=== PATIENT | female | born 1945 | race Caucasian/White ===

== ENCOUNTER 2017-08-13 10:02 | Observation (INO) | payer OTHER ==
[2017-08-13 12:26] VITALS: BP 118/63; PULSE 67; RESP 16; TEMP 97.7; O2SAT 97
[2017-08-13 13:30] VITALS: PULSE 68
[2017-08-13] MEDS ORDERED: cloNIDine HCL 0.1 MG TAB PO PRN (13:30)
[2017-08-13] MEDS ORDERED: ACETAMINOPHEN/HYDROcodone 325 MG/7.5 MG TAB PO PRN (13:30)
[2017-08-13] MEDS ORDERED: ONDANSETRON HCL 4 MG/2 ML VIAL IV PUSH PRN (13:30)
[2017-08-13] MEDS ORDERED: ACETAMINOPHEN 500 MG CPLT PO PRN (13:30)
--- NOTE | 2017-08-13 13:31 | HHI.HP ---
HPI Primary Care Physician Unknown Chief Complaint Chest pain and high blood pressure History of Present Illness This is a 71-year-old female that presents to ED in [place] complaining of chest discomfort and high blood pressure. Her first complaint was that she's been having high blood pressure readings for the last 3 months. She saw her primary care physician for this 3 months ago and [place] and was told to keep a journal. She has not followed back up with her PCP to determine if she is be on medication. States that her blood pressure seems to up and down for no rhyme or reason. However the last couple days it has been running and staying higher. States that her systolic blood pressure was in the 180s. Also the last 2 days she's had a constant discomfort in her chest. Location varies. Strings Teacher the left side her chest, right side her chest, and also points to the epigastric region. It seems to have stayed more consistently in the epigastric region throughout today. States she has history of gastric ulcers but this does not feel the same. Also has had a cardiac workup in the past. She had a cardiac catheterization which she states she was told was normal and believes it was done between 5-7 years ago in [place]. Continues to follow a sales office manager intermittently since however states she's had no further cardiac testing since then. Also complaining of a frontal headache which she states seems to be present whenever blood pressure goes higher. Denies recent illness. Denies fevers or chills. Denies hyperlipidemia and diabetes. Review of Systems General: Patient denies fevers, chills recent, and recent travel HEENT: Complains of frontal headache that she states is present whenever her blood pressure goes high. Patient denies sore throat, difficulty swallowing. Cardiovascular: Has the chest discomfort as mentioned above. Denies sensation of heart beating rapidly or irregularly. No syncope. Denies diaphoresis. Respiratory: Denies shortness of breath or inspirational chest discomfort. Denies coughing wheezing or hemoptysis. GI: Patient denies nausea, vomiting, diarrhea, abdominal pain, bloody stools. Musculoskeletal: Patient denies joint pain or edema. Denies calf pain or edema. Neurovascular: Complains of frontal headache whenever her blood pressure is elevated. Patient denies numbness, tingling, weakness in extremities. Endocrine: Denies polyuria and polydipsia. Hematologic: Denies easy bruising. Skin: Denies rash or itching. Past Family Social History Allergies: Coded Allergies: ciprofloxacin (Verified Allergy, Severe, Anaphylaxis, 08/13/17) Cladosporium Herbarum (Verified Allergy, Intermediate, hives, 08/13/17) Ani House Dust (Verified Allergy, Intermediate, hives, 08/13/17) Influenza Virus Vaccines (Verified Allergy, Intermediate, "was in bed sick for 2 weeks after receiving it", 08/13/17) Latex, Natural Rubber (Verified Allergy, Intermediate, blisters, 08/13/17) cefaclor (Verified Allergy, Intermediate, hives, 08/13/17) cefprozil (Verified Allergy, Intermediate, hives, 08/13/17) estrogens, conjugated (Verified Allergy, Intermediate, hives, 08/13/17) latex (Verified Allergy, Intermediate, blisters, 08/13/17) nitrofurantoin (Verified Allergy, Intermediate, hives, 08/13/17) pecan nut (Verified Allergy, Intermediate, Anaphylaxis, 08/13/17) propoxyphene (Verified Allergy, Intermediate, hives, 08/13/17) terfenadine (Verified Allergy, Intermediate, hives, 08/13/17) mold (Verified Allergy, Unknown, 08/13/17) pollen extracts (Verified Allergy, Unknown, 08/13/17) Uncoded Allergies: stephylium (Allergy, Intermediate, it is a mold and causes hives, 08/13/17) bermuda grass (Allergy, Unknown, 08/13/17) calamari (Allergy, Unknown, 08/13/17) dust mites (Allergy, Unknown, 08/13/17) pepper tree (Allergy, Unknown, 08/13/17) pet dander (Allergy, Unknown, 08/13/17) melva (Allergy, Unknown, 08/13/17) Past Medical History GERD. Also when the history of gastric ulcers. Denies any current medication other than occasional aspirin. Denies hypertension, hyperlipidemia, diabetes, and known CAD. Past Surgical History Appendectomy and knee surgery rate Active Ordered Medications Current Medications Medications (Trade) Dose Ordered Sig/Milka Route Start Time Stop Time Status Last Admin (Tylenol) 500 mg Q4H PRN PO 08/13/17 13:30 ([place] 7.5-325 Mg) 1 tab Q4H PRN PO 08/13/17 13:30 (Zofran Inj) 4 mg Q6H PRN IV PUSH 08/13/17 13:30 (Aspirin) 325 mg DAILY PO 08/14/17 09:00 (Catapres) 0.1 mg Q4H PRN PO 08/13/17 13:30 Family History Patient's brother had onset CAD in his 50s. Her mother at age 63. She states that she can recall mother taking nitroglycerin but does not know any more specific cardiac information regarding her mother. Social History Lifetime nonsmoker. Rarely has alcohol but states she had a little champagne last evening with her . Denies illicit drug use. Physical Exam Vital Signs Vital Signs Date Time Temp Pulse Resp B/P (MAP) Pulse Ox O2 Delivery O2 Flow Rate FiO2 08/13/17 12:26 97.7 67 16 118/63 (81) 97 Physical Exam GENERAL: This is a well-nourished, well-developed patient, in no apparent distress. Patient speaks in clear complete sentences. Patient is pleasant. HEENT: Head is atraumatic and normocephalic. Neck is supple without lymphadenopathy and trachea is midline. No JVD or carotid bruits. CARDIOVASCULAR: Regular rate and rhythm without murmurs, gallops, or rubs. RESPIRATORY: Clear to auscultation. Breath sounds equal bilaterally. No wheezes , rales, or rhonchi. Chest wall is tender in different areas and does seem to worsen the discomfort that she has had. No use of accessory muscles. GASTROINTESTINAL: Abdomen is nontender, nondistended. Abdomen soft. No obvious pulsatile mass or bruit. No CVA tenderness. Strong femoral pulses bilaterally. Normal bowel sounds in all quadrants. MUSCULOSKELETAL: Patient is moving upper and lower extremities freely. No calf tenderness or edema, no [place] sign. Strong pulses in upper and lower extremities. NEUROLOGICAL: Patient is alert and oriented. Cranial nerves 2-12 are grossly intact. No focal deficits and speech is clear. SKIN: No rash and turgor is normal. Imaging Chest x-ray read by radiologist as nothing acute. CT brain read by radiologist as nothing acute. Course Initial EKG is sinus rhythm without significant ST segment depressions or elevation. Caprini VTE Risk Assessment Caprini VTE Risk Assessment: Mod/High Risk (score >= 2) Caprini Risk Assessment Model Point Value = 1 Point Value = 2 Point Value = 3 Point Value = 5 Age 41-60 Minor surgery BMI > 25 kg/m2 Swollen legs Varicose veins or History of unexplained or recurrent spontaneous Oral contraceptives or hormone replacement Sepsis (< 1 month) Serious lung disease, including pneumonia (< 1 month) Abnormal pulmonary function Acute myocardial infarction Congestive heart failure (< 1 month) History of inflammatory bowel disease Medical patient at bed rest Age 61-74 Arthroscopic surgery Major open surgery (> 45 min) Laparoscopic surgery (> 45 min) Malignancy Confined to bed (> 72 hours) Immobilizing plaster cast Central venous access Age >= 75 History of VTE Family history of VTE Factor V Leiden Prothrombin [id number] Lupus anticoagulant Anticardiolipin antibodies Elevated serum homocysteine Heparin-induced thrombocytopenia Other congenital or acquired thrombophilia Stroke (< 1 month) Elective arthroplasty Hip, pelvis, or leg fracture Acute spinal cord injury (< 1 month) Prophylaxis Regimen Total Risk Factor Score Risk Level Prophylaxis Regimen 0-1 Low Early ambulation 2 Moderate Order ONE of the following: *Sequential Compression Device (SCD) *Heparin 5000 units SQ BID 3-4 Higher Order ONE of the following medications: *Heparin 5000 units SQ TID *Enoxaparin/Lovenox 40 mg SQ daily (WT < 150 kg, CrCl > 30 mL/min) *Enoxaparin/Lovenox 30 mg SQ daily (WT < 150 kg, CrCl > 10-29 mL/min) *Enoxaparin/Lovenox 30 mg SQ BID (WT < 150 kg, CrCl > 30 mL/min) AND/OR *Sequential Compression Device (SCD) 5 or more Highest Order ONE of the following medications: *Heparin 5000 units SQ TID (Preferred with Epidurals) *Enoxaparin/Lovenox 40 mg SQ daily (WT < 150 kg, CrCl > 30 mL/min) *Enoxaparin/Lovenox 30 mg SQ daily (WT < 150 kg, CrCl > 10-29 mL/min) *Enoxaparin/Lovenox 30 mg SQ BID (WT < 150 kg, CrCl > 30 mL/min) AND *Sequential Compression Device (SCD) Assessment and Plan Assessment and Plan * Chest pain: Patient will continue to have serial cardiac enzymes and EKGs for ruling out purposes. Patient will be evaluated by Dr. Estuardo Cash of cardiology and the chest pain center and further plan will be determined after that evaluation. After discharge, patient has been instructed to follow-up with PCP and her sales office manager. Return to ED for interval issues. * Elevated blood pressure: Patient was hypertensive upon arrival in the ED but has normalized since. We'll continue to monitor. Patient is stable at this time. She is agreeable to this plan. Jesus Deluca Aug 13, 2017 13:31
[2017-08-13 13:55] LABS: TROPONIN I LESS THAN 0.02 NG/ML (0.02-0.05)
--- NOTE | 2017-08-13 15:13 | HHI.DCPOC ---
Discharge Care Plan Diagnosis: (1) Chest pain (2) Elevated blood pressure reading Goals to Promote Your Health CHECK AND RECORD YOUR BLOOD PRESSURE TO DISCUSS WITH YOUR PRIMARY CARE PHYSICIAN. * To prevent worsening of your condition and complications * To maintain your health at the optimal level Directions to Meet Your Goals Take your medications as prescribed Follow your dietary instruction Follow activity as directed Keep your appointments as scheduled Take your immunizations and boosters as scheduled If your symptoms worsen call your PCP, if no PCP go to Urgent Care Center or Emergency Room Smoking is Dangerous to Your Health. Avoid second hand smoke Call the 24-hour hour crisis hotline for domestic abuse at Jesus Deluca Aug 13, 2017 15:13
[2017-08-13 15:23] VITALS: O2SAT 98
[2017-08-14] MEDS ORDERED: ASPIRIN 325 MG TAB PO SCH (09:00)
--- NOTE | 2017-08-15 09:55 | EKG ---
Date Performed: 08/13/2017 Time Performed: 12:34:20 PTAGE: 71 years EKG: Sinus rhythm MARKED LEFT AXIS DEVIATION VOLTAGE CRITERIA FOR LVH ABNORMAL ECG NO PREVIOUS TRACING DOCTOR: Estuardo Cash Interpretating Date/Time 08/15/2017 09:54:49
== END 2017-08-13 15:50 | disposition home or self-care (01) ==
LOC: NEDDLT 10:02 → NEDA 12:22 → NEPGCP 13:13
PROVIDERS: ADMIT Internal Medicine Cardiovascular Disease; ATTEND Internal Medicine Cardiovascular Disease
DX: R03.0 Elevated blood-pressure reading, without diagnosis of hypertension (principal); Z87.11 Personal history of peptic ulcer disease; R51 Headache; K21.9 Gastro-esophageal reflux disease without esophagitis; R94.31 Abnormal electrocardiogram [ECG] [EKG]
CPT/HCPCS: 70450; 71045; 80053; 82550; 84484; 85025; 85610; 85730; 93005; G0378; J2270; J2405; 96374; 96375

== ENCOUNTER 2017-09-17 08:14 | Inpatient (IN) | payer OTHER, MEDICARE ==
[2017-09-17] VITALS (16 sets, daily range): BP systolic 104–180; BP diastolic 55–86; PULSE 66–91; RESP 16–20; TEMP 98–98.9; O2SAT 96–98
[~2017-09-17] VITALS: Ht 157.5 cm; Wt 58.2 kg
[2017-09-17] MEDS ORDERED: POLY17S PO (08:47)
[2017-09-17] MEDS ORDERED: AMLO2.5T PO (08:47)
[2017-09-17] MEDS ORDERED: APIX5TAB PO (08:47)
[2017-09-17] MEDS ORDERED: TRAM50TA PO (08:47)
[2017-09-17] MEDS ORDERED: ONDANSETRON HCL 4 MG/2 ML VIAL IV PUSH ONE (09:30)
[2017-09-17] MEDS ORDERED: HYDROmorphone HCL PF 1 MG/ML VIAL IV PUSH ONE (09:30)
[2017-09-17 09:45] LABS: INTERNATIONAL NORMALIZED RATIO 1.1 RATIO; PROTHROMBIN TIME - PATIENT 11.4 SEC (9.8-11.6)
[2017-09-17 09:49] LABS: AUTOMATED NEUTROPHIL # 7.6 TH/MM3 (1.8-7.7); BASOPHIL # 0.1 TH/MM3 (0-0.2); BASOPHIL % 0.6 % (0.0-2.0); EOSINOPHIL # 0.1 TH/MM3 (0-0.4); EOSINOPHIL % 0.8 % (0.0-4.0); HEMATOCRIT 37.2 % (35.0-46.0); HEMOGLOBIN 12.6 GM/DL (11.6-15.3); LYMPH % 10.1 % (9.0-44.0); MEAN CELL VOLUME 87.3 FL (80.0-100.0); MEAN CORPUSCULAR HEMOGLOBIN 29.7 PG (27.0-34.0); MEAN PLATELET VOLUME 7.7 FL (7.0-11.0); MONO % 7.7 % (0.0-8.0); MONOCYTE # 0.7 TH/MM3 (0-0.9); NEUT % 80.8 % (16.0-70.0); PLATELET COUNT 332 TH/MM3 (150-450); RED BLOOD COUNT 4.26 MIL/MM3 (4.00-5.30); RED CELL DISTRIBUTION WIDTH 12.3 % (11.6-17.2); WHITE BLOOD COUNT 9.5 TH/MM3 (4.0-11.0)
[2017-09-17 09:54] LABS: ALBUMIN 3.4 GM/DL (3.4-5.0); AST (GOT) 111 U/L (15-37); BICARBONATE 29.1 MEQ/L (21.0-32.0); BLOOD UREA NITROGEN 10 MG/DL (7-18); CALCIUM 9.4 MG/DL (8.5-10.1); CHLORIDE 92 MEQ/L (98-107); CREATININE 0.52 MG/DL (0.50-1.00); GLOMERULAR FILTRATION RATE 116 ML/MIN (>89); GLUCOSE,RANDOM 122 MG/DL (74-106); SODIUM (NA) 129 MEQ/L (136-145)
[2017-09-17 09:55] LABS: ALT (GPT) 163 U/L (10-53)
[2017-09-17 09:57] LABS: ALKALINE PHOSPHATASE 273 U/L (45-117); TOTAL BILIRUBIN ADULT 1.3 MG/DL (0.2-1.0); TOTAL PROTEIN 7.9 GM/DL (6.4-8.2)
[2017-09-17] MEDS ORDERED: ONDANSETRON HCL 4 MG/2 ML VIAL IV PUSH PRN (10:45)
--- NOTE | 2017-09-17 11:10 | PD ---
HPI Chief Complaint: Chest Pain Time Seen by Provider: 09:01 Travel History International Travel<30 days: No Contact w/Intl Traveler<30days: No Traveled to known affect area: No History of Present Illness HPI This is a 71-year-old female with history of hypertension, lower extremity DVT and pulmonary emboli, who presents today with complaints of upper abdominal pain. Patient reports that she was just discharged from [facility] in [place]. She states at that time they diagnosed a pancreatic mass with probable metastasize to her liver. She reports that they were scheduling for biopsy however this did not happen yet. She presents today with severe right upper quadrant and epigastric pain. She was given pain medicine and a fentanyl patch which she says does not control her pain. There is no reported fevers, chills. There is reported nausea with no vomiting or diarrhea. There are no other complaints at the time of my examination. PFSH Past Medical History Hx Anticoagulant Therapy: Yes Heart Rhythm Problems: No Cardiac Catheterization: No Cardiovascular Problems: Yes High Cholesterol: No Congestive Heart Failure: No Diabetes: No Diminished Hearing: No Medical other: Yes (blood clot in leg) Respiratory: Yes Past Surgical History Appendectomy: Yes Coronary Artery Bypass Graft: No Genitourinary Surgery: Yes (BLADDER SUSPENSION) Gynecologic Surgery: Yes (UTERUS REMOVED) Other Surgery: Yes (FATTY TUMORS ) Social History Alcohol Use: No Tobacco Use: No Substance Use: No Allergies-Medications (Allergen,Severity, Reaction): Coded Allergies: ciprofloxacin (Verified Allergy, Severe, Anaphylaxis, 09/17/17) Cladosporium Herbarum (Verified Allergy, Intermediate, hives, 09/17/17) Ani House Dust (Verified Allergy, Intermediate, hives, 09/17/17) Influenza Virus Vaccines (Verified Allergy, Intermediate, "was in bed sick for 2 weeks after receiving it", 09/17/17) Latex, Natural Rubber (Verified Allergy, Intermediate, blisters, 09/17/17) cefaclor (Verified Allergy, Intermediate, hives, 09/17/17) cefprozil (Verified Allergy, Intermediate, hives, 09/17/17) estrogens, conjugated (Verified Allergy, Intermediate, hives, 09/17/17) latex (Verified Allergy, Intermediate, blisters, 09/17/17) nitrofurantoin (Verified Allergy, Intermediate, hives, 09/17/17) pecan nut (Verified Allergy, Intermediate, Anaphylaxis, 09/17/17) propoxyphene (Verified Allergy, Intermediate, hives, 09/17/17) terfenadine (Verified Allergy, Intermediate, hives, 09/17/17) mold (Verified Allergy, Unknown, 09/17/17) pollen extracts (Verified Allergy, Unknown, 09/17/17) Uncoded Allergies: stephylium (Allergy, Intermediate, it is a mold and causes hives, 08/13/17) bermuda grass (Allergy, Unknown, 08/13/17) calamari (Allergy, Unknown, 08/13/17) dust mites (Allergy, Unknown, 08/13/17) pepper tree (Allergy, Unknown, 08/13/17) pet dander (Allergy, Unknown, 08/13/17) melva (Allergy, Unknown, 08/13/17) Reported Meds & Prescriptions Reported Meds & Active Scripts Active Reported Polyethylene Glycol 3350 Powder (Polyethylene Glycol) 17 Gram Pow 17 Gm PO DAILY Amlodipine (Amlodipine Besylate) 2.5 Mg Tab 2.5 Mg PO DAILY Eliquis (Apixaban) 5 Mg Tab 5 Mg PO BID Tramadol (Tramadol HCl) 50 Mg Tab 50 Mg PO Q4H PRN Review of Systems Except as stated in HPI: all other systems reviewed are Neg General / Constitutional: No: Fever, Chills HENT: No: Headaches, Lightheadedness, Neck Pain Cardiovascular: No: Chest Pain or Discomfort, Palpitations Respiratory: No: Cough, Shortness of Breath Gastrointestinal: Positive: Nausea, Abdominal Pain (Epigastric and right upper quadrant), No: Vomiting, Diarrhea Genitourinary: No: Frequency, Dysuria Musculoskeletal: No: Weakness, Pain Skin: No Rash, No Itching Neurologic: No: Weakness, Dizziness, Headache Physical Exam Narrative GENERAL: Well-developed well-nourished female in no acute respiratory distress. SKIN: Focused skin assessment warm/dry. HEAD: Atraumatic. Normocephalic. EYES: Pupils equal and round. No scleral icterus. No injection or drainage. ENT: No nasal bleeding or discharge. Mucous membranes pink and moist. NECK: Trachea midline. Supple. CARDIOVASCULAR: Regular rate and rhythm. No murmur appreciated. RESPIRATORY: No accessory muscle use. Clear to auscultation. Breath sounds equal bilaterally. GASTROINTESTINAL: Abdomen soft, nondistended. Patient has tenderness in her epigastrium and bilateral upper quadrants. No rebound. Positive voluntary guarding. MUSCULOSKELETAL: No obvious deformities. No clubbing. No cyanosis. No edema. NEUROLOGICAL: Awake and alert. No obvious cranial nerve deficits. Motor grossly within normal limits. Normal speech. PSYCHIATRIC: Appropriate mood and affect; insight and judgment normal. Data Data Last Documented VS Vital Signs Date Time Temp Pulse Resp B/P (MAP) Pulse Ox O2 Delivery O2 Flow Rate FiO2 09/17/17 10:30 68 18 141/62 (88) 97 Room Air 09/17/17 08:16 98.1 Orders Orders Complete Blood Count With Diff (09/17/17 09:23) Comprehensive Metabolic Panel (09/17/17 09:23) Prothrombin Time / Inr (Pt) (09/17/17 09:23) Act Partial Throm Time (Ptt) (09/17/17 09:23) Lipase (09/17/17 09:23) Iv Access Insert/Monitor (09/17/17 09:23) Ecg Monitoring (09/17/17 09:23) Oximetry (09/17/17 09:23) Ondansetron Inj (Zofran Inj) (09/17/17 09:30) Hydromorphone Pf Inj (Dilaudid Pf Inj) (09/17/17 09:30) Electrocardiogram (09/17/17 ) Vital Signs (Adult) ANASTACIO.Q4H (09/17/17 10:32) Sodium Chlor 0.9% 1000 Ml Inj (Ns 1000 M (09/17/17 11:00) Ondansetron Inj (Zofran Inj) (09/17/17 10:45) Diet Clear Liquid (09/17/17 Lunch) Oxycodone (Roxicodone) (09/17/17 11:15) Oxycodone (Roxicodone) (09/17/17 11:15) Morphine Inj (Morphine Inj) (09/17/17 11:15) Enoxaparin Inj (Lovenox Inj) (09/17/17 18:00) Consult Medical Oncology (09/17/17 ) Basic Metabolic Panel (Bmp) (09/18/17 06:00) Amlodipine (Norvasc) (09/18/17 09:00) ^ Other Nursing Orders (09/17/17 11:13) (Hub Use Only)Inp Phy Cons/Ref (09/17/17 ) Admit Order (Ed Use Only) (09/17/17 11:38) Labs Laboratory Tests Test 09/17/17 09:15 White Blood Count 9.5 TH/MM3 Red Blood Count 4.26 MIL/MM3 Hemoglobin 12.6 GM/DL Hematocrit 37.2 % Mean Corpuscular Volume 87.3 FL Mean Corpuscular Hemoglobin 29.7 PG Mean Corpuscular Hemoglobin Concent 34.0 % Red Cell Distribution Width 12.3 % Platelet Count 332 TH/MM3 Mean Platelet Volume 7.7 FL Neutrophils (%) (Auto) 80.8 % Lymphocytes (%) (Auto) 10.1 % Monocytes (%) (Auto) 7.7 % Eosinophils (%) (Auto) 0.8 % Basophils (%) (Auto) 0.6 % Neutrophils # (Auto) 7.6 TH/MM3 Lymphocytes # (Auto) 1.0 TH/MM3 Monocytes # (Auto) 0.7 TH/MM3 Eosinophils # (Auto) 0.1 TH/MM3 Basophils # (Auto) 0.1 TH/MM3 CBC Comment DIFF FINAL Differential Comment Prothrombin Time 11.4 SEC Prothromb Time International Ratio 1.1 RATIO Activated Partial Thromboplast Time 26.6 SEC Blood Urea Nitrogen 10 MG/DL Creatinine 0.52 MG/DL Random Glucose 122 MG/DL Total Protein 7.9 GM/DL Albumin 3.4 GM/DL Calcium Level 9.4 MG/DL Alkaline Phosphatase 273 U/L Aspartate Amino Transf (AST/SGOT) 111 U/L Alanine Aminotransferase (ALT/SGPT) 163 U/L Total Bilirubin 1.3 MG/DL Sodium Level 129 MEQ/L Potassium Level 3.9 MEQ/L Chloride Level 92 MEQ/L Carbon Dioxide Level 29.1 MEQ/L Anion Gap 8 MEQ/L Estimat Glomerular Filtration Rate 116 ML/MIN Lipase 108 U/L MDM Medical Decision Making Medical Screen Exam Complete: Yes Emergency Medical Condition: Yes Differential Diagnosis Pancreatitis versus metastatic disease versus cholecystitis versus intractable pain. Narrative Course This is a 71-year-old female who presents with complaints of shortness of breath and abdominal pain. Patient has a newly diagnosis of what appears to be metastatic pancreatic cancer. The patient was recently [facility] and was scheduled to have a biopsy however that did not occur. The patient presents today with worsening pain. The pain is worse despite having a fentanyl patch. The patient will be admitted to the hospital. [facility]. Diagnosis Primary Impression: Probable metastatic pancreatic cancer Additional Impressions: Intractable abdominal pain History of hypertension Admitting Information Admitting Physician Requests: Admit Unruly Steen MD Sep 17, 2017 11:10
[2017-09-17] MEDS: SODIUM CHLOR 0.9% 1000 ML INJ 1,000 ML IV SCH ×2 (11:14→19:50)
[2017-09-17] MEDS ORDERED: MORPHINE SULFATE 2 MG/ML INJ IV PUSH PRN (11:15)
--- NOTE | 2017-09-17 11:21 | HHI.HP ---
[facility] Primary Care Physician Roro Tate MD Admission Diagnosis abdominal pain Diagnoses: (1) Intractable abdominal pain Diagnosis: Principal Chief Complaint: abdominal pain Travel History International Travel<30 Days: No Contact w/Intl Traveler <30 Da: No Traveled to Known Affected Are: No History of Present Illness patient is a 71 y/o female with history of hypertension and PE presented to ER with abdominal pain. she says that she's had abdominal pain for at least six months. pain was more or less epigastric with on and off radiation to the RUQ. pain was not associated with nausea or vomiting. she says that she had EGD and colonoscopy which showed ' just polyps'. she was recently admitted to the [facility] where she was found to have PE and pancreatic/ liver mass. she was discharged with outpatient follow-ups but because of worsening pain she decided to come back to ER. Review of Systems Constitutional: DENIES: Fever, Weight loss, Chills, Night Sweats Eyes: DENIES: Blurred vision, Diplopia, Vision loss, Double Vision Ears, nose, mouth, throat: DENIES: Tinnitus, Vertigo, Throat pain, Epistaxis Respiratory: DENIES: Apneas, Cough, Snoring, Wheezing, Hemoptysis, Sputum production, Shortness of breath Cardiovascular: DENIES: Chest pain, Palpitations, Syncope, Dyspnea on Exertion , PND, Lower Extremity Edema, Orthopnea, Claudication Gastrointestinal: COMPLAINS OF: Abdominal pain, DENIES: Black stools, Bloody stools, Constipation, Diarrhea, Nausea, Vomiting, Difficulty Swallowing, Anorexia Genitourinary: DENIES: Urinary frequency, Urgency, Hematuria, Dysuria Musculoskeletal: DENIES: Joint pain, Muscle aches, Stiffness, Joint Swelling Integumentary: DENIES: Rash Neurologic: DENIES: Abnormal gait, Headache, Localized weakness, Paresthesias, Seizures, Speech Problems, Tremor, Poor Balance Psychiatric: DENIES: Anxiety, Confusion, Mood changes, Depression, Hallucinations, Agitation, Suicidal Ideation, Homicidal Ideation, Delusions Past Family Social History Past Medical History PE/hypertension Past Surgical History / knee surgery. Reported Medications amlodipine/ tramadol/ eliquis Allergies: Coded Allergies: ciprofloxacin (Verified Allergy, Severe, Anaphylaxis, 09/17/17) Cladosporium Herbarum (Verified Allergy, Intermediate, hives, 09/17/17) Ani House Dust (Verified Allergy, Intermediate, hives, 09/17/17) Influenza Virus Vaccines (Verified Allergy, Intermediate, "was in bed sick for 2 weeks after receiving it", 09/17/17) Latex, Natural Rubber (Verified Allergy, Intermediate, blisters, 09/17/17) cefaclor (Verified Allergy, Intermediate, hives, 09/17/17) cefprozil (Verified Allergy, Intermediate, hives, 09/17/17) estrogens, conjugated (Verified Allergy, Intermediate, hives, 09/17/17) latex (Verified Allergy, Intermediate, blisters, 09/17/17) nitrofurantoin (Verified Allergy, Intermediate, hives, 09/17/17) pecan nut (Verified Allergy, Intermediate, Anaphylaxis, 09/17/17) propoxyphene (Verified Allergy, Intermediate, hives, 09/17/17) terfenadine (Verified Allergy, Intermediate, hives, 09/17/17) mold (Verified Allergy, Unknown, 09/17/17) pollen extracts (Verified Allergy, Unknown, 09/17/17) Uncoded Allergies: stephylium (Allergy, Intermediate, it is a mold and causes hives, 08/13/17) bermuda grass (Allergy, Unknown, 08/13/17) calamari (Allergy, Unknown, 08/13/17) dust mites (Allergy, Unknown, 08/13/17) pepper tree (Allergy, Unknown, 08/13/17) pet dander (Allergy, Unknown, 08/13/17) melva (Allergy, Unknown, 08/13/17) Active Ordered Medications Inpatient Medications Hydromorphone HCl (Dilaudid Pf Inj) 1 mg ONCE ONCE IV PUSH Last administered on 09/17/17at 10:06; Start 09/17/17 at 09:30; Stop 09/17/17 at 09:31; Status DC Ondansetron HCl (Zofran Inj) 4 mg Q8H PRN IV PUSH NAUSEA; Start 09/17/17 at 10: 45 Sodium Chloride 1,000 ml @ 100 mls/hr Q10H IV ; Start 09/17/17 at 11:00 Family History cancer; mother had throat cancer. Social History doesn't smoke. used to drink occasionally. Physical Exam Vital Signs Vital Signs Date Time Temp Pulse Resp B/P (MAP) Pulse Ox O2 Delivery O2 Flow Rate FiO2 09/17/17 09:59 16 97 Room Air 09/17/17 08:16 98.1 91 18 171/78 (109) 97 Physical Exam GENERAL: This is a well-nourished, well-developed patient, in no apparent distress. SKIN: No rashes, ecchymoses or lesions. Cool and dry. HEAD: Atraumatic. Normocephalic. No temporal or scalp tenderness. EYES: Pupils equal round and reactive. Extraocular motions intact. No scleral icterus. No injection or drainage. ENT: Nose without bleeding, purulent drainage or septal hematoma. Throat without erythema, tonsillar hypertrophy or exudate. Uvula midline. Airway patent. NECK: Trachea midline. No JVD or lymphadenopathy. Supple, nontender, no meningeal signs. CARDIOVASCULAR: Regular rate and rhythm without murmurs, gallops, or rubs. RESPIRATORY: Clear to auscultation. Breath sounds equal bilaterally. No wheezes , rales, or rhonchi. GASTROINTESTINAL: Abdomen soft, mild epigastric tenderness, nondistended. No hepato-splenomegaly, or palpable masses. No guarding. MUSCULOSKELETAL: Extremities without clubbing, cyanosis, or edema. No joint tenderness, effusion, or edema noted. No calf tenderness. Negative Homans sign bilaterally. NEUROLOGICAL: Awake and alert. Cranial nerves II through XII intact. Motor and sensory grossly within normal limits. Five out of 5 muscle strength in all muscle groups. Normal speech. Laboratory Laboratory Tests Test 09/17/17 09:15 White Blood Count 9.5 Red Blood Count 4.26 Hemoglobin 12.6 Hematocrit 37.2 Mean Corpuscular Volume 87.3 Mean Corpuscular Hemoglobin 29.7 Mean Corpuscular Hemoglobin Concent 34.0 Red Cell Distribution Width 12.3 Platelet Count 332 Mean Platelet Volume 7.7 Neutrophils (%) (Auto) 80.8 Lymphocytes (%) (Auto) 10.1 Monocytes (%) (Auto) 7.7 Eosinophils (%) (Auto) 0.8 Basophils (%) (Auto) 0.6 Neutrophils # (Auto) 7.6 Lymphocytes # (Auto) 1.0 Monocytes # (Auto) 0.7 Eosinophils # (Auto) 0.1 Basophils # (Auto) 0.1 CBC Comment DIFF FINAL Differential Comment Prothrombin Time 11.4 Prothromb Time International Ratio 1.1 Activated Partial Thromboplast Time 26.6 Blood Urea Nitrogen 10 Creatinine 0.52 Random Glucose 122 Total Protein 7.9 Albumin 3.4 Calcium Level 9.4 Alkaline Phosphatase 273 Aspartate Amino Transf (AST/SGOT) 111 Alanine Aminotransferase (ALT/SGPT) 163 Total Bilirubin 1.3 Sodium Level 129 Potassium Level 3.9 Chloride Level 92 Carbon Dioxide Level 29.1 Anion Gap 8 Estimat Glomerular Filtration Rate 116 Lipase 108 Result Diagram: 09/17/1791409/17/17914 Caprini VTE Risk Assessment Caprini VTE Risk Assessment: Mod/High Risk (score >= 2) Caprini Risk Assessment Model Point Value = 1 Point Value = 2 Point Value = 3 Point Value = 5 Age 41-60 Minor surgery BMI > 25 kg/m2 Swollen legs Varicose veins or History of unexplained or recurrent spontaneous Oral contraceptives or hormone replacement Sepsis (< 1 month) Serious lung disease, including pneumonia (< 1 month) Abnormal pulmonary function Acute myocardial infarction Congestive heart failure (< 1 month) History of inflammatory bowel disease Medical patient at bed rest Age 61-74 Arthroscopic surgery Major open surgery (> 45 min) Laparoscopic surgery (> 45 min) Malignancy Confined to bed (> 72 hours) Immobilizing plaster cast Central venous access Age >= 75 History of VTE Family history of VTE Factor V Leiden Prothrombin [id number] Lupus anticoagulant Anticardiolipin antibodies Elevated serum homocysteine Heparin-induced thrombocytopenia Other congenital or acquired thrombophilia Stroke (< 1 month) Elective arthroplasty Hip, pelvis, or leg fracture Acute spinal cord injury (< 1 month) Prophylaxis Regimen Total Risk Factor Score Risk Level Prophylaxis Regimen 0-1 Low Early ambulation 2 Moderate Order ONE of the following: *Sequential Compression Device (SCD) *Heparin 5000 units SQ BID 3-4 Higher Order ONE of the following medications: *Heparin 5000 units SQ TID *Enoxaparin/Lovenox 40 mg SQ daily (WT < 150 kg, CrCl > 30 mL/min) *Enoxaparin/Lovenox 30 mg SQ daily (WT < 150 kg, CrCl > 10-29 mL/min) *Enoxaparin/Lovenox 30 mg SQ BID (WT < 150 kg, CrCl > 30 mL/min) AND/OR *Sequential Compression Device (SCD) 5 or more Highest Order ONE of the following medications: *Heparin 5000 units SQ TID (Preferred with Epidurals) *Enoxaparin/Lovenox 40 mg SQ daily (WT < 150 kg, CrCl > 30 mL/min) *Enoxaparin/Lovenox 30 mg SQ daily (WT < 150 kg, CrCl > 10-29 mL/min) *Enoxaparin/Lovenox 30 mg SQ BID (WT < 150 kg, CrCl > 30 mL/min) AND *Sequential Compression Device (SCD) Assessment and Plan Assessment and Plan A/P - abdominal pain with elevated LFT's with reported pancreatic/liver mass on recent imaging studies start on clear liquid diet for now- continue with pain control- will obtain the report of imaging studies from [facility] and consult oncology ( - per family request). -recent PE- hold eliquis - in case the patient needs biopsy- start on therapeutic dose of Lovenox- -hyponatremia; start on IV NS and monitor the sodium level. -hypertension; resume home meds. Discussed Condition With ER physician, the patient and her family at the bedside. Anjana Ojeda MD Sep 17, 2017 11:21
[2017-09-17] MEDS: ENOXAPARIN SODIUM 60 MG/0.6 ML SYRINGE SQ SCH (17:32)
--- NOTE | 2017-09-17 21:58 | EKG ---
Date Performed: 09/17/2017 Time Performed: 08:44:10 PTAGE: 71 years EKG: Sinus rhythm MARKED LEFT AXIS DEVIATION MODERATE VOLTAGE CRITERIA FOR LVH, CONSIDER NORMAL VARIANT ABNORMAL ECG PREVIOUS TRACING : 08/13/2017 12.34 DOCTOR: Tamia Ortiz Interpretating Date/Time 09/17/2017 21:55:38
[2017-09-18] VITALS (27 sets, daily range): BP systolic 109–128; BP diastolic 55–73; PULSE 56–86; RESP 16–20; TEMP 97.7–98.5; O2SAT 96–98
[2017-09-18] MEDS: SODIUM CHLOR 0.9% 1000 ML INJ 1,000 ML IV SCH ×3 (05:56→23:38)
[2017-09-18] MEDS: ENOXAPARIN SODIUM 60 MG/0.6 ML SYRINGE SQ SCH (05:56)
[2017-09-18 07:07] LABS: BICARBONATE 28.7 MEQ/L (21.0-32.0); CALCIUM 8.1 MG/DL (8.5-10.1); CREATININE 0.45 MG/DL (0.50-1.00)
--- NOTE | 2017-09-18 07:19 | MB ---
cc: VARSHA CHAIDEZ M.D. DATE OF CONSULTATION 09/17/[address] Reeder REASON FOR CONSULTATION Oncology consulted to render an opinion regarding the patient with abdominal pain and liver masses. HISTORY OF PRESENT ILLNESS The patient is a very pleasant 71-year-old female with no significant past medical history who started experiencing midepigastric pain around six months ago. She stated the pain at that time would radiate up to the left shoulder and she was referred to see candy forming machine operator and upper endoscopy was unremarkable. She was told that she has a gastroesophageal reflux disease. She also had a colonoscopy which showed four "precancerous polyps". She stated that the pain is intermittent in nature, but slowly getting worse. Lately the pain would travel to the back and to the site. She was told that she may have cardiac problems. She underwent a stress test which was unremarkable. Last Sunday she developed a sharp right upper quadrant and mid epigastric pain. She went to [facility] was admitted. While over there, she was found to have a pulmonary embolism. Her last CT scan showed a mass in the neck of the pancreas as well as multiple liver lesions. She was started on anticoagulation and discharged home last Sunday. However, she started having more pain in the right upper quadrant area and decided to come in to [place]. She denies any fever or chills. She denies any significant weight loss. She denies any nausea or vomiting. She denies any melena, hematochezia, dysuria or hematuria. Denies any headache. Denies any focal numbness or weakness. PAST MEDICAL HISTORY 1. Hypertension 2. Recent diagnosis of pulmonary embolism. 3. Pancreatic neck mass. 4. Liver masses PAST SURGICAL HISTORY 1. Arthroscopic left knee surgery 2. Bladder suspension surgery 3. Resection multiple lipomas FAMILY HISTORY Mother had thyroid cancer. Father had prostate cancer. She only had one brother that is alive. Five other sibling are . One brother had some sort of cancer. Another brother had a possible gallbladder or liver cancer. She has three daughter and a son, but no history of cancer in her children. SOCIAL HISTORY Denies tobacco use. She drinks occasionally, but not recently. She lives with her in [place]. ALLERGIES Multiple allergies are documented on the medical record that were reviewed. MEDICATIONS 1. Amlodipine 2. Lovenox REVIEW OF SYSTEMS CONSTITUTIONAL: As above. EYES: Negative. ENT: Negative. CARDIOVASCULAR: Chest pressure, palpitation. RESPIRATORY: No shortness of breath or cough. GI: As above. : No dysuria or hematuria. MUSCULOSKELETAL: Negative. HEMATOLOGY: Negative. ENDOCRINE: Negative. DERMATOLOGY: Negative. PSYCHIATRIC: Negative. NEUROLOGIC: Negative. PHYSICAL EXAMINATION VITAL SIGNS: Temperature 98.5, blood pressure 127/64, O2 saturation 98% on room air. GENERAL: She is alert and oriented x3 in no acute distress. HEENT: Atraumatic, normocephalic. Pupils equal, round and reactive to light. Extraocular muscles intact. No scleral icterus. Oropharynx, dry mucosa. No lesion. No thrush. No mucositis. NECK: No thyromegaly. No palpable masses. LYMPHATICS: No palpable cervical, clavicular, axillary or inguinal lymph nodes. CARDIOVASCULAR: Regular S1-S2, normal. LUNGS: Clear to auscultation bilaterally. No wheezing or rhonchi. ABDOMEN: Soft, tender in the midepigastric and right upper quadrant area. Positive bowel sounds. I could not palpate any mass. EXTREMITIES: No cyanosis, clubbing or edema. BACK: No paravertebral tenderness. SKIN: No rash or petechiae. NEUROLOGIC: Exam is nonfocal. LABORATORY DATA Dated September 17, 2017 was reviewed, creatinine of 0.52, AST 111, ALT 163, alkaline phosphatase was 73. ASSESSMENT 1. Mass in the neck of the pancreas with multiple liver masses most suspicious for a pancreatic cancer. She started having mid epigastric pain about six months ago. The pain is progressively getting worse. The pain tends to travel to the back, side and to the shoulder. When she was admitted to the [facility] last week, CT of the abdomen and pelvis showed a 3 x 1.90 cm mass in the pancreatic neck. There was atrophy of the pancreatic tail with mild dilatation of pancreatic duct. There were multiple liver masses, largest measured up to 4.8 cm and there was also a 2.2 cm lymph node in the donny hepatis area. Her tumor marker CA19-9 was more than 84,000. The clinical picture is most consistent with metastatic pancreatic cancer. I went over the radiologic findings with the patient. I told her this is suspicious for cancer and we need to get a biopsy. The most accessible lesion to biopsy will be the liver. Unfortunately, the patient just took Eliquis this morning. We will not be able to do a biopsy for at least another 2-3 days. Given her recent acute pulmonary embolism, I think she needs to be on the anticoagulation up until the procedure. I plan to switch her over to a heparin drip which can be turned off before her procedure. I also told the patient to have her come in tomorrow morning for further discussion. The patient has many questions today which were answered. 2. Recent acute pulmonary wisdom. Her CT angiogram last week showed acute pulmonary embolism in the left lower lobe. Ultrasound did not show any deep venous thrombosis. She has hypercoagulable state due to underlying malignancy. She was started on Eliquis and she took her last Eliquis this morning. She is now on Lovenox. She is going to need a biopsy of the liver lesions. I plan to switch her over to IV heparin tomorrow which could be turned off right before her biopsy in two to three days. 3. Hypertension, stable. 4. Abdominal pain due to pancreatic mass and liver metastasis pain. Continue to titrate pain medication per primary team. PLAN 1. Extensive discussion with the patient as above. I have reviewed her records from [facility] and I have reviewed her CT scan. 2. Continue Lovenox, but I plan to switch her over to IV heparin tomorrow. 3. Consult radiology for biopsy of the liver lesion, but that will have to wait until because she just took her Eliquis this morning. Thank you Dr. Reeder for asking us to see this patient. MD JA Banda/LISSY /6:26 PM /7:00 AM [facility]
--- NOTE | 2017-09-18 07:45 | HHI.PR ---
Subjective Remarks Patient in nad. No n/v/d/c. No abd pain. Eating, Na is back to normal. Deneis sob, chest apin , palpitations. No fever or chills. Family at bedside also , with multiple questions. Objective Vitals Vital Signs Date Time Temp Pulse Resp B/P (MAP) Pulse Ox O2 Delivery O2 Flow Rate FiO2 09/18/17 06:00 62 09/18/17 05:00 66 09/18/17 04:30 16 09/18/17 03:58 71 09/18/17 03:13 98.2 77 20 122/66 (84) 97 09/18/17 03:00 64 09/18/17 02:00 66 09/18/17 01:00 56 09/18/17 00:00 63 09/17/17 23:11 98.1 68 16 104/55 (71) 97 09/17/17 23:00 66 09/17/17 22:05 68 09/17/17 21:00 88 09/17/17 20:26 76 09/17/17 19:43 98.9 68 18 109/60 (76) 98 09/17/17 19:00 78 09/17/17 17:58 77 09/17/17 17:22 98.5 70 20 127/64 (85) 98 09/17/17 13:18 98.0 66 20 108/60 (76) 96 09/17/17 12:51 09/17/17 12:26 70 16 118/56 (76) 96 Room Air 09/17/17 12:00 70 09/17/17 10:30 68 18 141/62 (88) 97 Room Air 09/17/17 09:59 16 97 Room Air 09/17/17 08:30 76 16 180/86 (117) 97 Room Air 09/17/17 08:16 98.1 91 18 171/78 (109) 97 I/O 09/17/17 09/17/17 09/17/17 09/18/17 09/18/17 09/18/17 07:00 15:00 23:00 07:00 15:00 23:00 Intake Total 500 ml 1440 ml Output Total 3200 ml Balance 500 ml -1760 ml Intake Oral 500 ml 1440 ml Output Urine Total 3200 ml # Voids 2 Result Diagram: 09/17/17 0915 09/18/17 0610 Objective Remarks GENERAL: This is a well-nourished, well-developed patient, in no apparent distress. CARDIOVASCULAR: Regular rate and rhythm without murmurs, gallops, or rubs. RESPIRATORY: Clear to auscultation. Breath sounds equal bilaterally. No wheezes , rales, or rhonchi. GASTROINTESTINAL: Abdomen soft, mild epigastric tenderness, nondistended. No hepato-splenomegaly, or palpable masses. No guarding. MUSCULOSKELETAL: Extremities without clubbing, cyanosis, or edema. No joint tenderness, effusion, or edema noted. No calf tenderness. Negative Homans sign bilaterally. NEUROLOGICAL: Awake and alert. Cranial nerves II through XII intact. Motor and sensory grossly within normal limits. Five out of 5 muscle strength in all muscle groups. Normal speech. A/P Problem List: (1) Intractable abdominal pain ICD Code: R10.9 - Unspecified abdominal pain Status: Acute Assessment and Plan Abdominal pain with elevated LFT's with reported pancreatic/liver mass on recent imaging studies start on clear liquid diet for now- continue with pain control- will obtain the report of imaging studies from [facility] and consult oncology ( - per family request). plan for liver biopsy on Recent PE- hold eliquis - plan for liver biopsy on - start on therapeutic dose of Lovenox, switch to heparin per hem/onc appreciate recommendations Hyponatremia - resolved. DC IV NS. Monitor Na Hypertension; resume home meds. Discussed Condition With pt, nurse Cami Kay MD Sep 18, 2017 07:45
[2017-09-18] MEDS: amLODIPine BESYLATE 5 MG TAB PO SCH (08:05)
[2017-09-18] MEDS ORDERED: HEPARIN-D5W 25,000 U/250 ML 250 ML IV PRN ×3 (08:15→18:00)
[2017-09-18] MEDS ORDERED: POLYETHYLENE GLYCOL 17 GM PKG PO PRN (09:15)
[2017-09-18] MEDS ORDERED: HYDROmorphone HCL PF 2 MG/ML VIAL IV PUSH PRN (09:15)
--- NOTE | 2017-09-18 10:33 | PD.ONC.PN ---
Subjective Subjective Remarks Afebrile overnight. Patient resting in bed. States morphine is not controlling pain in abdomen. wants to try dilaudid instead. also feeling constipated for several days. wants to try a stool softener or laxative. Objective Data Date Time Temp Pulse Resp B/P (MAP) Pulse Ox O2 Delivery O2 Flow Rate FiO2 09/18/17 08:03 97.7 70 16 128/73 (91) 97 09/18/17 08:00 71 09/18/17 06:00 62 09/18/17 05:00 66 09/18/17 04:30 16 09/18/17 03:58 71 09/18/17 03:13 98.2 77 20 122/66 (84) 97 09/18/17 03:00 64 09/18/17 02:00 66 09/18/17 01:00 56 09/18/17 00:00 63 09/17/17 23:11 98.1 68 16 104/55 (71) 97 09/17/17 23:00 66 09/17/17 22:05 68 09/17/17 21:00 88 09/17/17 20:26 76 09/17/17 19:43 98.9 68 18 109/60 (76) 98 09/17/17 19:00 78 09/17/17 17:58 77 09/17/17 17:22 98.5 70 20 127/64 (85) 98 09/17/17 13:18 98.0 66 20 108/60 (76) 96 09/17/17 12:51 09/17/17 12:26 70 16 118/56 (76) 96 Room Air 09/17/17 12:00 70 09/17/17 10:30 68 18 141/62 (88) 97 Room Air 09/18/17 09/18/17 09/18/17 07:00 15:00 23:00 Intake Total 1440 ml Output Total 3200 ml Balance -1760 ml Result Diagram: 09/17/17 0915 09/18/17 0610 Laboratory Results Laboratory Tests Test 09/18/17 06:10 Blood Urea Nitrogen 6 MG/DL Creatinine 0.45 MG/DL Random Glucose 106 MG/DL Calcium Level 8.1 MG/DL Sodium Level 138 MEQ/L Potassium Level 4.0 MEQ/L Chloride Level 104 MEQ/L Carbon Dioxide Level 28.7 MEQ/L Anion Gap 5 MEQ/L Estimat Glomerular Filtration Rate 137 ML/MIN Administered Medications Medications (Trade) Dose Ordered Sig/Milka Route PRN Reason Start Time Stop Time Status Last Admin Dose Admin Sodium Chloride 1,000 ml @ 100 mls/hr Q10H IV 09/17/17 11:00 09/18/17 05:56 Oxycodone HCl (Roxicodone) 10 mg Q4H PRN PO PAIN 6-10 09/17/17 11:15 09/18/17 03:34 Amlodipine Besylate (Norvasc) 2.5 mg DAILY PO 09/18/17 09:00 09/18/17 08:05 Objective Remarks GENERAL: Pleasant elderly female, sitting up in bed in [facility]. SKIN: Warm and dry. HEAD: Normocephalic. EYES: No injection or drainage. NECK: Supple, trachea midline. CARDIOVASCULAR: Regular rate and rhythm. RESPIRATORY: Breath sounds equal bilaterally. No accessory muscle use. GASTROINTESTINAL: Abdomen soft, +ttp epigastrium, nondistended. EXTREMITIES: No cyanosis NEUROLOGICAL: No obvious focal deficit. Awake, alert, and oriented x3. Assessment/Plan Problem List: (1) Abdominal mass ICD Codes: R19.00 - Intra-abdominal and pelvic swelling, mass and lump, unspecified site Plan: --Mass in the neck of the pancreas with multiple liver masses most suspicious for a pancreatic cancer. --will obtain biopsy on to allow adequate time for Eliquis to cycle out of body. --mid epigastric pain started six months ago. --admitted to [facility] last week, CT of the abdomen and pelvis showed a 3 x1.90 cm mass in the pancreatic neck. There was atrophy of the pancreatic tail with mild dilatation of pancreatic duct. There area also multiple liver masses, largest measured up to 4.8 cm and there was also a 2.2 cm lymph node in the donny hepatis area. Her tumor marker CA19-9 was more than84,000. The clinical picture is most consistent with metastatic pancreatic cancer. I went over the radiologic findings with the patient. (2) Pulmonary embolism ICD Codes: I26.99 - Other pulmonary embolism without acute cor pulmonale Plan: --currently on heparin gtt. started 09/18/17 --last eliquis on 09/17/17 int he AM --CT angiogram last week showed acute pulmonary embolism in the left lower lobe. Ultrasound did not show any deep venous thrombosis. --She has hypercoagulable state due to underlying malignancy. Assessment 71y/o female with suspected pancreatic cancer. h/o Hypertension Recent diagnosis of pulmonary embolism. Pancreatic neck mass. Liver masses Plan 1. start Pericolace scheduled with miralax PRN 2. stop morphine, start dilaudid PRN pain. 3. schedule biopsy for to allow enough time for eliquis to cycle out of system. will ask invasive radiology to perform port placement at the same time as the patient is hypercoagulable and it will be very difficult and dangerous each time anticoagulation is held. Attending Statement The exam, history, and the medical decision-making described in the above note were completed with the assistance of the mid-level provider. I reviewed and agree with the findings presented. I attest that I had a [id number] encounter with the patient on the same day, and personally performed and documented my assessment and findings in the medical record. Has RUQ/JORGE A pain. No N/V. No BM for few days. Extensive discussion with pt, her and her daughter. Reviewed radiologic findings with them. The clinical picture is most consistent with mets pancreatic cancer but we need tissue diagnosis. Pt and family wants to pursue aggressive treatment with chemotherapy even if she has mets pancreatic cancer. Plan to switch her to IV heparin for the PE. Heparin can be turn off right before the biopsy. Consult radiology for biopsy of the liver mass and port placement at the same time. Their questions were answered. Jess Bhakta Sep 18, 2017 10:32 Urbano Olivera MD Sep 18, 2017 16:27
[2017-09-18] MEDS: DOCUSATE SODIUM 50 MG/SENNA 8.6 MG TAB PO SCH ×2 (11:13→20:38)
[2017-09-18] MEDS ORDERED: MAGNESIUM HYDROXIDE SUSP 30 ML CUP PO PRN (15:45)
[2017-09-18] MEDS ORDERED: LACTULOSE SYRUP 20 GM/30 ML CUP PO PRN (15:45)
[2017-09-18] MEDS ORDERED: PILL SPLITTER OTHER PRN (15:45)
[2017-09-19] VITALS (28 sets, daily range): BP systolic 116–134; BP diastolic 66–73; PULSE 58–90; RESP 16–18; TEMP 97.2–98.3; O2SAT 97–98
[2017-09-19 06:25] LABS: ALBUMIN 2.9 GM/DL (3.4-5.0); ALKALINE PHOSPHATASE 215 U/L (45-117); ALT (GPT) 94 U/L (10-53); AST (GOT) 59 U/L (15-37); BICARBONATE 30.2 MEQ/L (21.0-32.0); BLOOD UREA NITROGEN 3 MG/DL (7-18); CALCIUM 8.9 MG/DL (8.5-10.1); CHLORIDE 103 MEQ/L (98-107); CREATININE 0.45 MG/DL (0.50-1.00); GLOMERULAR FILTRATION RATE 137 ML/MIN (>89); GLUCOSE,RANDOM 96 MG/DL (74-106); SODIUM (NA) 139 MEQ/L (136-145); TOTAL PROTEIN 6.8 GM/DL (6.4-8.2)
[2017-09-19] MEDS: DOCUSATE SODIUM 50 MG/SENNA 8.6 MG TAB PO SCH ×2 (08:46→19:25)
[2017-09-19] MEDS: amLODIPine BESYLATE 5 MG TAB PO SCH (08:46)
--- NOTE | 2017-09-19 11:28 | PD.ONC.PN ---
Subjective Subjective Remarks Afebrile overnight. patient resting in bed in nad. and granddaughter at bedside. states pain is well controlled. would like IVF stopped as she is urinating quite a bit. tolerating heparin gtt. had BM this AM. Objective Data Date Time Temp Pulse Resp B/P (MAP) Pulse Ox O2 Delivery O2 Flow Rate FiO2 09/19/17 07:52 98.3 64 18 119/66 (83) 97 09/19/17 07:00 63 09/19/17 06:00 85 09/19/17 05:00 64 09/19/17 04:38 97.2 71 16 134/67 (89) 98 09/19/17 04:00 82 09/19/17 03:00 72 09/19/17 02:00 66 09/19/17 01:00 70 09/19/17 00:00 82 09/18/17 23:34 98.5 72 16 120/73 (89) 98 09/18/17 23:00 74 09/18/17 22:00 70 09/18/17 21:00 86 09/18/17 20:00 78 09/18/17 20:00 98.4 76 16 123/65 (84) 97 09/18/17 19:00 72 09/18/17 17:59 67 09/18/17 17:00 64 09/18/17 16:10 97.7 73 18 109/55 (73) 96 09/18/17 16:00 60 09/18/17 14:00 72 09/18/17 13:00 68 09/18/17 12:02 79 09/19/17 09/19/17 09/19/17 07:00 15:00 23:00 Intake Total 960 ml 1000 ml Output Total 2400 ml Balance -1440 ml 1000 ml Result Diagram: 09/17/17 0915 09/19/17 0447 Laboratory Results Laboratory Tests Test 09/18/17 16:02 09/19/17 00:10 09/19/17 04:47 09/19/17 10:40 Activated Partial Thromboplast Time 26.3 SEC 36.3 SEC 38.3 SEC Blood Urea Nitrogen 3 MG/DL Creatinine 0.45 MG/DL Random Glucose 96 MG/DL Total Protein 6.8 GM/DL Albumin 2.9 GM/DL Calcium Level 8.9 MG/DL Alkaline Phosphatase 215 U/L Aspartate Amino Transf (AST/SGOT) 59 U/L Alanine Aminotransferase (ALT/SGPT) 94 U/L Total Bilirubin 1.0 MG/DL Sodium Level 139 MEQ/L Potassium Level 3.7 MEQ/L Chloride Level 103 MEQ/L Carbon Dioxide Level 30.2 MEQ/L Anion Gap 6 MEQ/L Estimat Glomerular Filtration Rate 137 ML/MIN Administered Medications Medications (Trade) Dose Ordered Sig/Milka Route PRN Reason Start Time Stop Time Status Last Admin Dose Admin Oxycodone HCl (Roxicodone) 10 mg Q4H PRN PO PAIN 6-10 09/17/17 11:15 09/19/17 08:47 Amlodipine Besylate (Norvasc) 2.5 mg DAILY PO 09/18/17 09:00 09/19/17 08:46 Senna/Docusate Sodium (Marcela-Colace) 1 tab BID PO 09/18/17 09:00 09/19/17 08:46 Heparin Sodium/ Dextrose 250 ml @ 10 mls/hr TITRATE PRN IV Coagulation Management 09/18/17 18:00 09/18/17 17:51 Polyethylene Glycol (Miralax) 17 gm DAILY PRN PO mild constipation 09/18/17 09:15 09/18/17 11:17 Lactulose (Lactulose Liq) 30 ml TID PRN PO severe constipation 09/18/17 15:45 09/19/17 08:46 Objective Remarks GENERAL: Pleasant elderly female, upright in bed with and granddaughter at bedside. SKIN: Warm and dry. HEAD: Normocephalic. EYES: No injection or drainage. NECK: Supple, trachea midline. CARDIOVASCULAR: Regular rate and rhythm. RESPIRATORY: Breath sounds equal bilaterally. No accessory muscle use. GASTROINTESTINAL: Abdomen soft, no tenderness to palpation. EXTREMITIES: No cyanosis NEUROLOGICAL: awake and alert, no obvious focal deficit. Assessment/Plan Problem List: (1) Abdominal mass ICD Codes: R19.00 - Intra-abdominal and pelvic swelling, mass and lump, unspecified site Plan: --Mass in the neck of the pancreas with multiple liver masses most suspicious for a pancreatic cancer. --will obtain biopsy on to allow adequate time for Eliquis to cycle out of body. --mid epigastric pain started six months ago. --admitted to [facility] last week, CT of the abdomen and pelvis showed a 3 x1.90 cm mass in the pancreatic neck. There was atrophy of the pancreatic tail with mild dilatation of pancreatic duct. There area also multiple liver masses, largest measured up to 4.8 cm and there was also a 2.2 cm lymph node in the donny hepatis area. Her tumor marker CA19-9 was more than84,000. The clinical picture is most consistent with metastatic pancreatic cancer. I went over the radiologic findings with the patient. (2) Pulmonary embolism ICD Codes: I26.99 - Other pulmonary embolism without acute cor pulmonale Plan: --currently on heparin gtt. started 09/18/17 --last eliquis on 09/17/17 int he AM --CT angiogram last week showed acute pulmonary embolism in the left lower lobe. Ultrasound did not show any deep venous thrombosis. --She has hypercoagulable state due to underlying malignancy. Assessment 71y/o female with suspected pancreatic cancer. h/o Hypertension Recent diagnosis of pulmonary embolism. Pancreatic neck mass. Liver masses Plan 1. continue heparin gtt. hold 4 hours prior to biopsy tomorrow. 2. plan for discharge early Sunday AM. 3. port placement and liver biopsy tomorrow. Attending Statement The exam, history, and the medical decision-making described in the above note were completed with the assistance of the mid-level provider. I reviewed and agree with the findings presented. I attest that I had a [id number] encounter with the patient on the same day, and personally performed and documented my assessment and findings in the medical record. Abdominal pain better controlled. Tolerating heparin. No CP/SOB. No bleeding. Radiology to biopsy liver mass and place port tomorrow. Will hold heparin before procedure. Jess Bhakta Sep 19, 2017 11:28 Urbano Olivera MD Sep 19, 2017 12:50
--- NOTE | 2017-09-19 15:00 | HHI.PR ---
Subjective Remarks Abdominal pain is controlled and oxycodone. Plan for biopsy of pancreatic/ liver mass tomorrow and placement of port tomorrow. Patient has no new complaints today. She has been ambulatory. Objective Vital Signs Date Time Temp Pulse Resp B/P (MAP) Pulse Ox O2 Delivery O2 Flow Rate FiO2 09/19/17 14:00 58 09/19/17 13:00 68 09/19/17 12:00 68 09/19/17 11:23 97.8 71 18 116/67 (83) 97 09/19/17 11:00 69 09/19/17 10:00 76 09/19/17 09:00 82 09/19/17 08:00 66 09/19/17 07:52 98.3 64 18 119/66 (83) 97 09/19/17 07:00 63 09/19/17 06:00 85 09/19/17 05:00 64 09/19/17 04:38 97.2 71 16 134/67 (89) 98 09/19/17 04:00 82 09/19/17 03:00 72 09/19/17 02:00 66 09/19/17 01:00 70 09/19/17 00:00 82 09/18/17 23:34 98.5 72 16 120/73 (89) 98 09/18/17 23:00 74 09/18/17 22:00 70 09/18/17 21:00 86 09/18/17 20:00 78 09/18/17 20:00 98.4 76 16 123/65 (84) 97 09/18/17 19:00 72 09/18/17 17:59 67 09/18/17 17:00 64 09/18/17 16:10 97.7 73 18 109/55 (73) 96 09/18/17 16:00 60 I/O 09/18/17 09/18/17 09/18/17 09/19/17 09/19/17 09/19/17 07:00 15:00 23:00 07:00 15:00 23:00 Intake Total 1440 ml 2963 ml 960 ml 1000 ml Output Total 3200 ml 4600 ml 2400 ml Balance -1760 ml -1637 ml -1440 ml 1000 ml Intake Oral 1440 ml 2000 ml 960 ml IV Total 963 ml 1000 ml Output Urine Total 3200 ml 4600 ml 2400 ml Result Diagram: 09/17/17 0915 09/19/17 0447 Objective Remarks GENERAL: NAD, A&Ox3 HEAD: Normocephalic. NECK: Supple, trachea midline. No lymphadenopathy. EYES: No scleral icterus. No injection or drainage. CARDIOVASCULAR: Regular rate and rhythm without murmurs, gallops, or rubs. RESPIRATORY: Breath sounds equal bilaterally. No accessory muscle use. GASTROINTESTINAL: Abdomen soft, non-tender, nondistended. MUSCULOSKELETAL: No cyanosis, or edema. SKIN: Warm and dry. NEURO: No focal neurological deficitis. A/P Problem List: (1) Abdominal mass ICD Code: R19.00 - Intra-abdominal and pelvic swelling, mass and lump, unspecified site (2) Intractable abdominal pain ICD Code: R10.9 - Unspecified abdominal pain Status: Acute (3) Pulmonary embolism ICD Code: I26.99 - Other pulmonary embolism without acute cor pulmonale Assessment and Plan 71-year-old female admitted secondary to irretractable abdominal pain related to abdominal mass at the pancreas/liver. Pancreatic mass, liver mass Abdominal pain LFT elevation Follow LFTs values Oncology following Continue oxycodone for pain as needed Pain is currently controlled Plan for biopsy tomorrow Plan for port placement tomorrow History of recent pulmonary embolism Continue IV heparin Eliquis on hold Resume Eliquis after procedures tomorrow Hyponatremia IV hydration discontinued Follow sodium levels Hypertension Continue baseline treatment Follow blood pressures Adjust treatments as needed DVT prophylaxis Patient on heparin Stephan Uribe MD Sep 19, 2017 15:00
[2017-09-19] MEDS ORDERED: VANCOMYCIN 1000 MG/NS 250 ML ON-CALL IV SCH ×2 (15:15)
[2017-09-19] MEDS ORDERED: GENTAMICIN/SOD CHL 80 MG/100 ML IV SCH (16:00)
[2017-09-19] MEDS ORDERED: VANCOMYCIN 1 GM/200 ML PREMIX ON-CALL IV SCH (16:00)
[2017-09-19] MEDS ORDERED: HEPARIN-D5W 25,000 U/250 ML 250 ML IV PRN (16:30)
[2017-09-20] VITALS (26 sets, daily range): BP systolic 102–135; BP diastolic 45–75; PULSE 61–87; RESP 16–20; TEMP 97.3–98.6; O2SAT 92–100
[2017-09-20 05:56] LABS: AUTOMATED NEUTROPHIL # 4.2 TH/MM3 (1.8-7.7); BASOPHIL # 0.1 TH/MM3 (0-0.2); BASOPHIL % 0.8 % (0.0-2.0); EOSINOPHIL # 0.2 TH/MM3 (0-0.4); EOSINOPHIL % 2.5 % (0.0-4.0); HEMATOCRIT 30.3 % (35.0-46.0); HEMOGLOBIN 10.2 GM/DL (11.6-15.3); LYMPH % 25.9 % (9.0-44.0); LYMPHOCYTE # 1.8 TH/MM3 (1.0-4.8); MEAN CORPUSCULAR HEMOGLOBIN 29.2 PG (27.0-34.0); MEAN CORPUSCULAR HGB CONC 33.6 % (32.0-36.0); MEAN PLATELET VOLUME 7.8 FL (7.0-11.0); MONO % 12.4 % (0.0-8.0); MONOCYTE # 0.9 TH/MM3 (0-0.9); NEUT % 58.4 % (16.0-70.0); PLATELET COUNT 299 TH/MM3 (150-450); RED BLOOD COUNT 3.48 MIL/MM3 (4.00-5.30); RED CELL DISTRIBUTION WIDTH 12.3 % (11.6-17.2); WHITE BLOOD COUNT 7.1 TH/MM3 (4.0-11.0)
[2017-09-20 06:02] LABS: ALBUMIN 2.7 GM/DL (3.4-5.0); AST (GOT) 47 U/L (15-37); BICARBONATE 29.4 MEQ/L (21.0-32.0); BLOOD UREA NITROGEN 4 MG/DL (7-18); CALCIUM 8.5 MG/DL (8.5-10.1); CHLORIDE 101 MEQ/L (98-107); CREATININE 0.44 MG/DL (0.50-1.00); GLOMERULAR FILTRATION RATE 141 ML/MIN (>89); GLUCOSE,RANDOM 107 MG/DL (74-106); SODIUM (NA) 137 MEQ/L (136-145)
[2017-09-20 06:05] LABS: ALKALINE PHOSPHATASE 190 U/L (45-117); ALT (GPT) 72 U/L (10-53); TOTAL BILIRUBIN ADULT 1.1 MG/DL (0.2-1.0); TOTAL PROTEIN 6.4 GM/DL (6.4-8.2)
[2017-09-20] MEDS: amLODIPine BESYLATE 5 MG TAB PO SCH (08:50)
[2017-09-20] MEDS: DOCUSATE SODIUM 50 MG/SENNA 8.6 MG TAB PO SCH ×2 (08:50→20:31)
--- NOTE | 2017-09-20 09:24 | PD.ONC.PN ---
Subjective Subjective Remarks Afebrile overnight. Patient resting in bed in nad. Waiting to go downstairs for port placement and liver biopsy. resting comfortably without complaint. Objective Data Date Time Temp Pulse Resp B/P (MAP) Pulse Ox O2 Delivery O2 Flow Rate FiO2 09/20/17 07:32 98.0 70 18 131/71 (91) 94 09/20/17 06:00 63 09/20/17 05:00 64 09/20/17 04:00 73 09/20/17 04:00 97.3 68 16 111/62 (78) 100 09/20/17 02:00 62 09/20/17 01:00 68 09/20/17 00:00 75 09/20/17 00:00 98.0 66 16 113/65 (81) 98 09/19/17 23:00 58 09/19/17 22:00 72 09/19/17 21:00 76 09/19/17 20:00 98.2 90 16 127/72 (90) 98 09/19/17 20:00 78 09/19/17 19:00 70 09/19/17 18:00 80 09/19/17 17:00 74 09/19/17 16:00 74 09/19/17 15:26 97.4 72 18 125/73 (90) 98 09/19/17 15:00 73 09/19/17 14:00 58 09/19/17 13:00 68 09/19/17 12:00 68 09/19/17 11:23 97.8 71 18 116/67 (83) 97 09/19/17 11:00 69 09/19/17 10:00 76 Result Diagram: 09/20/17 0405 09/20/17 0405 Laboratory Results Laboratory Tests Test 09/19/17 10:40 09/19/17 18:18 09/20/17 01:30 09/20/17 04:05 Activated Partial Thromboplast Time 38.3 SEC 40.1 SEC 40.8 SEC White Blood Count 7.1 TH/MM3 Red Blood Count 3.48 MIL/MM3 Hemoglobin 10.2 GM/DL Hematocrit 30.3 % Mean Corpuscular Volume 87.0 FL Mean Corpuscular Hemoglobin 29.2 PG Mean Corpuscular Hemoglobin Concent 33.6 % Red Cell Distribution Width 12.3 % Platelet Count 299 TH/MM3 Mean Platelet Volume 7.8 FL Neutrophils (%) (Auto) 58.4 % Lymphocytes (%) (Auto) 25.9 % Monocytes (%) (Auto) 12.4 % Eosinophils (%) (Auto) 2.5 % Basophils (%) (Auto) 0.8 % Neutrophils # (Auto) 4.2 TH/MM3 Lymphocytes # (Auto) 1.8 TH/MM3 Monocytes # (Auto) 0.9 TH/MM3 Eosinophils # (Auto) 0.2 TH/MM3 Basophils # (Auto) 0.1 TH/MM3 CBC Comment DIFF FINAL Differential Comment Blood Urea Nitrogen 4 MG/DL Creatinine 0.44 MG/DL Random Glucose 107 MG/DL Total Protein 6.4 GM/DL Albumin 2.7 GM/DL Calcium Level 8.5 MG/DL Alkaline Phosphatase 190 U/L Aspartate Amino Transf (AST/SGOT) 47 U/L Alanine Aminotransferase (ALT/SGPT) 72 U/L Total Bilirubin 1.1 MG/DL Sodium Level 137 MEQ/L Potassium Level 3.5 MEQ/L Chloride Level 101 MEQ/L Carbon Dioxide Level 29.4 MEQ/L Anion Gap 7 MEQ/L Estimat Glomerular Filtration Rate 141 ML/MIN Administered Medications Medications (Trade) Dose Ordered Sig/Milka Route PRN Reason Start Time Stop Time Status Last Admin Dose Admin Oxycodone HCl (Roxicodone) 10 mg Q4H PRN PO PAIN 6-10 09/17/17 11:15 09/20/17 05:25 Amlodipine Besylate (Norvasc) 2.5 mg DAILY PO 09/18/17 09:00 09/20/17 08:50 Senna/Docusate Sodium (Marcela-Colace) 1 tab BID PO 09/18/17 09:00 09/20/17 08:50 Polyethylene Glycol (Miralax) 17 gm DAILY PRN PO mild constipation 09/18/17 09:15 09/18/17 11:17 Lactulose (Lactulose Liq) 30 ml TID PRN PO severe constipation 09/18/17 15:45 09/19/17 08:46 Heparin Sodium/ Dextrose 250 ml @ 10 mls/hr TITRATE PRN IV Coagulation Management 09/19/17 16:30 09/19/17 18:05 Objective Remarks GENERAL: Pleasant elderly female, sitting up in bed in nad. SKIN: Warm and dry. HEAD: Normocephalic. EYES: No injection or drainage. NECK: Supple, trachea midline. CARDIOVASCULAR: Regular rate and rhythm. RESPIRATORY: Breath sounds equal bilaterally. No accessory muscle use. GASTROINTESTINAL: Abdomen soft, no tenderness to palpation. EXTREMITIES: No cyanosis NEUROLOGICAL: no obvious focal deficit. Assessment/Plan Problem List: (1) Abdominal mass ICD Codes: R19.00 - Intra-abdominal and pelvic swelling, mass and lump, unspecified site Plan: --Mass in the neck of the pancreas with multiple liver masses most suspicious for a pancreatic cancer. --biopsy and port placement in IR today --mid epigastric pain started six months ago. --admitted to [facility] last week, CT of the abdomen and pelvis showed a 3 x1.90 cm mass in the pancreatic neck. There was atrophy of the pancreatic tail with mild dilatation of pancreatic duct. There area also multiple liver masses, largest measured up to 4.8 cm and there was also a 2.2 cm lymph node in the donny hepatis area. Her tumor marker CA19-9 was more than84,000. The clinical picture is most consistent with metastatic pancreatic cancer. I went over the radiologic findings with the patient. (2) Pulmonary embolism ICD Codes: I26.99 - Other pulmonary embolism without acute cor pulmonale Plan: --currently on heparin gtt. started 09/18/17 --last eliquis on 09/17/17 int he AM --CT angiogram last week showed acute pulmonary embolism in the left lower lobe. Ultrasound did not show any deep venous thrombosis. --She has hypercoagulable state due to underlying malignancy. Assessment 71y/o female with suspected pancreatic cancer. h/o Hypertension Recent diagnosis of pulmonary embolism. Pancreatic neck mass. Liver masses Plan 1.biopsy and port placement today 2. will resume Eliquis tonight. Attending Statement The exam, history, and the medical decision-making described in the above note were completed with the assistance of the mid-level provider. I reviewed and agree with the findings presented. I attest that I had a [id number] encounter with the patient on the same day, and personally performed and documented my assessment and findings in the medical record. RUQ pain controlled. Await biopsy of liver mass and port placement. Restart Eliquis this evening. Possible d/c tomorrow if stable and pain controlled. Jess Bhakta Sep 20, 2017 09:24 Urbano Olivera MD Sep 20, 2017 13:33
[2017-09-20] MEDS ORDERED: GENTAMICIN/SOD CHL 80 MG/100 ML IV SCH (09:45)
[2017-09-20] MEDS ORDERED: MIDAZOLAM HCL 2 MG/2 ML VIAL ONE ×3 (10:08→13:11)
--- NOTE | 2017-09-20 11:07 | PD.RAD ---
Post Procedure Progress Note Pre Procedure Diagnosis: (1) Liver cancer Post Procedure Diagnosis: (1) Liver cancer Procedure Date: Sep 20, 2017 Supervising Radiologist: Etienne Reyes Proceduralist/Assist: Hemalatha Caballero, RT(R) Estimated blood loss: none Anesthesia: Local, Conscious Sedation Plan of Activity Patient to Unit: ROPU Patient Condition: Good See PACS Report for procedural detail/treatment Central Venous Access Device Procedure 1 Right Internal Jugular Infusaport Placement single lumen Icelandic: 8 Etienne Reyes MD Sep 20, 2017 11:07
[2017-09-20] MEDS ORDERED: SODIUM CHLORIDE 0.9% FLUSH 10 ML FLUSH IVF PRN (11:15)
--- NOTE | 2017-09-20 11:25 | RADRPT ---
EXAM DATE/TIME: 09/20/2017 11:36 [facility] COMPARISON: No previous studies available for comparison. INDICATIONS : Patient presents with Pancreatic neck mass in need of port placement. MEDICAL HISTORY : Hypertension Pulmonary Embolism Pancreatic neck mass Liver masses SURGICAL HISTORY : Arthroscopic left knee surgery Bladder suspension surgery Resection multiple lipomas ENCOUNTER: Initial ACUITY: 3 days PAIN SCORE: 0/10 FLUORO TIME: 0.7 minutes IMAGE SERIES: 1 SEDATION TIME: 30 minutes ACCESS: Right internal jugular vein SEDATION: 1.) 2 mg midazolam (Versed) IV 2.) 100 mcg fentanyl (Sublimaze) IV Prophylactic antibiotics were administered with appropriate pre-procedure timing. Vancomycin within 2 hours of procedure, Ancef (or alternative) within 1 hour of procedure. DEVICE: 1. 8 [place] single lumen cm [id number] PROCEDURE : 1. Continuous pulse oximetry and EKG monitoring. 2. Intravenous conscious sedation. 3. Ultrasound guidance for venous access. 4. Fluoroscopic guided implantable central venous port placement. The patient was placed supine. The neck was prepped in sterile fashion. Full sterile technique was u sed, including cap, mask, sterile gloves and gown, and a large sterile sheet. Hand hygiene and 2% ch lorhexidine Betadine was utilized per protocol for cutaneous antisepsis with appropriate dry time for site. Sterile gel and sterile probe cover were utilized for ultrasound guidance. The skin and sub cutaneous tissues were infiltrated with local anesthetic solution. Under direct ultrasound guidance, central venous access was accomplished in the targeted vessel. The ultrasound images depicting access guidance were stored and saved to PACS for permanent record. A s ubcutaneous pocket was created using blunt dissection. The port was introduced to the pocket. The c atheter tubing was fed through a subcutaneous tunnel to the venotomy site. The catheter tubing was c ut to a suitable length and then was introduced through a valved Peel-Away sheath and positioned with catheter tubing tip at the cavo-atrial junction level. The pocket incision was closed with subcutic ular Vicryl suture. Steri-Strips were applied. The port was flushed and locked with heparin solutio n per protocol. Sterile dressing was applied to the site. The patient tolerated the procedure well. Conscious sedation was performed with the prescribed dosages and duration as above in the presence of an independent trained radiology nurse to assist in the monitoring of the patient. EKG and oximetry remained stable throughout the procedure. The patient tolerated the procedure well and there were no complications. The patient was sent to post anesthesia recovery in stable condition. CONCLUSION: Uncomplicated ultrasound and fluoroscopic guided implanted central venous port catheter placement as described in detail above. An 8 [place] Power port was placed. Etienne Reyes MD on September 20, 2017 at 11:22 Board Certified Radiologist. This report was verified electronically.
--- NOTE | 2017-09-20 13:53 | PD.RAD ---
Post Procedure Progress Note Pre Procedure Diagnosis: (1) Liver cancer Post Procedure Diagnosis: (1) Liver cancer Procedure Date: Sep 20, 2017 Supervising Radiologist: Stephan Waters Estimated blood loss: none Anesthesia: Local Plan of Activity Patient to Unit: ROPU Patient Condition: Fair Additional Comments: CT guided liver biopsy completed 2 18 gauge core samples taken Full dictated report to follow in PACS See PACS Report for procedural detail/treatment Stephan Waters MD Sep 20, 2017 13:53
--- NOTE | 2017-09-20 14:39 | HHI.PR ---
Subjective Remarks Port placement and biopsy performed today. Patient may be stable for discharge home tomorrow, if hemoglobin stable and pain control. Follow-up H&H planned for tomorrow morning. Objective Vital Signs Date Time Temp Pulse Resp B/P (MAP) Pulse Ox O2 Delivery O2 Flow Rate FiO2 09/20/17 13:50 75 18 104/50 (68) 96 09/20/17 13:35 98.5 83 20 102/45 (64) 92 09/20/17 13:35 98.5 83 18 102/45 (64) 92 09/20/17 12:15 62 18 109/60 (76) 93 09/20/17 11:45 61 18 109/63 (78) 93 09/20/17 11:15 64 18 107/60 (76) 95 09/20/17 11:00 98.2 63 20 107/60 (76) 96 09/20/17 09:00 68 09/20/17 08:00 78 09/20/17 07:32 98.0 70 18 131/71 (91) 94 09/20/17 07:00 82 09/20/17 06:00 63 09/20/17 05:00 64 09/20/17 04:00 73 09/20/17 04:00 97.3 68 16 111/62 (78) 100 09/20/17 02:00 62 09/20/17 01:00 68 09/20/17 00:00 75 09/20/17 00:00 98.0 66 16 113/65 (81) 98 09/19/17 23:00 58 09/19/17 22:00 72 09/19/17 21:00 76 09/19/17 20:00 98.2 90 16 127/72 (90) 98 09/19/17 20:00 78 09/19/17 19:00 70 09/19/17 18:00 80 09/19/17 17:00 74 09/19/17 16:00 74 09/19/17 15:26 97.4 72 18 125/73 (90) 98 09/19/17 15:00 73 I/O 09/19/17 09/19/17 09/19/17 09/20/17 09/20/17 09/20/17 07:00 15:00 23:00 07:00 15:00 23:00 Intake Total 960 ml 1000 ml 1620 ml Output Total 2400 ml 4653 ml Balance -1440 ml 1000 ml -3033 ml Intake Oral 960 ml 1370 ml IV Total 1000 ml 250 ml Output Urine Total 2400 ml 4650 ml Stool Total 3 ml Result Diagram: 09/20/1740409/20/17404 Objective Remarks GENERAL: NAD, A&Ox3 HEAD: Normocephalic. NECK: Supple, trachea midline. No lymphadenopathy. EYES: No scleral icterus. No injection or drainage. CARDIOVASCULAR: Regular rate and rhythm without murmurs, gallops, or rubs. RESPIRATORY: Breath sounds equal bilaterally. No accessory muscle use. GASTROINTESTINAL: Abdomen soft, non-tender, nondistended. MUSCULOSKELETAL: No cyanosis, or edema. SKIN: Warm and dry. NEURO: No focal neurological deficitis. A/P Problem List: (1) Abdominal mass ICD Code: R19.00 - Intra-abdominal and pelvic swelling, mass and lump, unspecified site (2) Intractable abdominal pain ICD Code: R10.9 - Unspecified abdominal pain Status: Acute (3) Pulmonary embolism ICD Code: I26.99 - Other pulmonary embolism without acute cor pulmonale Assessment and Plan 71-year-old female admitted secondary to irretractable abdominal pain related to abdominal mass at the pancreas/liver. Labs reviewed. Hemoglobins is showing stability. Patient had 2 procedures today. Plan to resume Eliquis starting tonight. Potential discharge tomorrow morning, if stable. Pancreatic mass, liver mass Abdominal pain LFT elevation Follow LFTs values Oncology following Continue oxycodone for pain as needed Pain is currently controlled Plan for biopsy tomorrow Plan for port placement tomorrow History of recent pulmonary embolism Continue IV heparin Eliquis on hold Resume Eliquis after procedures tomorrow Hyponatremia IV hydration discontinued Follow sodium levels Hypertension Continue baseline treatment Follow blood pressures Adjust treatments as needed DVT prophylaxis Patient on heparin Stephan Uribe MD Sep 20, 2017 14:39
--- NOTE | 2017-09-20 14:49 | RADRPT ---
EXAM DATE/TIME: 09/20/2017 12:56 [facility] COMPARISON: CT BRAIN W/O CONTRAST, August 13, 2017, 9:21. INDICATIONS : Liver mass. SEDATION TIME: 30 minutes BIOPSY SITE: Right MEDICATION(S): 1.) 2 mg midazolam (Versed) IV 2.) 100 mcg fentanyl (Sublimaze) IV DEVICE(S): 1.) 18 gauge Temno core biopsy needle MEDICAL HISTORY : Cardiovascular disease. SURGICAL HISTORY : None. ENCOUNTER: Initial ACUITY: 1 day PAIN SCORE: 0/10 LOCATION: Right A total of two core specimen(s) were obtained and sent to the laboratory for pathologic evaluation. PROCEDURE: 1. CT guided liver biopsy. 2. Conscious sedation with continuous EKG and oximetry monitoring. 3. EKG and oximetry remained stable throughout the procedure. Prior to the procedure informed consent was obtained. Any appropriate prior imaging studies were rev iewed. Using automated exposure control and adjustment of the mA and/or kV according to patient size, radiat ion dose was kept as low as reasonably achievable to obtain optimal diagnostic quality images. DICOM format image data is available electronically for review and comparison. The site was prepped in a sterile fashion. Full sterile technique was used, including cap, mask, rod rile gloves and gown and a large sterile sheet. Hand hygiene and 2% chlorhexidine and/or betadine/al cohol prep was utilized per protocol for cutaneous antisepsis. The skin and subcutaneous tissues wer e infiltrated with local anesthetic solution. With CT guidance the previously identified target was localized. Biopsy was performed using the presc ribed needle as above. Adequate hemostasis was obtained with compression at the puncture site. Follow-up CT scan reveals no hemorrhage. The patient tolerated the procedure well and there were no complications. The patient was returned to the Radiology Outpatient Unit in stable condition. CONCLUSION: Uncomplicated CT guided biopsy. Stephan Waters MD on September 20, 2017 at 14:46 Board Certified Radiologist. This report was verified electronically.
[2017-09-20] MEDS: APIXABAN 5 MG TABLET PO SCH (20:31)
[2017-09-21] VITALS (8 sets, daily range): BP systolic 111–134; BP diastolic 52–72; PULSE 62–73; RESP 16–20; TEMP 98.1; O2SAT 97
[2017-09-21 06:47] LABS: AUTOMATED NEUTROPHIL # 4.3 TH/MM3 (1.8-7.7); BASOPHIL # 0.1 TH/MM3 (0-0.2); BASOPHIL % 0.8 % (0.0-2.0); EOSINOPHIL # 0.2 TH/MM3 (0-0.4); EOSINOPHIL % 2.6 % (0.0-4.0); HEMATOCRIT 30.6 % (35.0-46.0); HEMOGLOBIN 10.5 GM/DL (11.6-15.3); LYMPH % 20.3 % (9.0-44.0); LYMPHOCYTE # 1.4 TH/MM3 (1.0-4.8); MEAN CELL VOLUME 86.8 FL (80.0-100.0); MEAN CORPUSCULAR HEMOGLOBIN 29.9 PG (27.0-34.0); MEAN CORPUSCULAR HGB CONC 34.4 % (32.0-36.0); MEAN PLATELET VOLUME 7.8 FL (7.0-11.0); MONO % 12.9 % (0.0-8.0); MONOCYTE # 0.9 TH/MM3 (0-0.9); NEUT % 63.4 % (16.0-70.0); PLATELET COUNT 263 TH/MM3 (150-450); RED BLOOD COUNT 3.52 MIL/MM3 (4.00-5.30); RED CELL DISTRIBUTION WIDTH 11.9 % (11.6-17.2); WHITE BLOOD COUNT 6.8 TH/MM3 (4.0-11.0)
[2017-09-21 07:02] LABS: ALBUMIN 2.7 GM/DL (3.4-5.0); BICARBONATE 29.5 MEQ/L (21.0-32.0); BLOOD UREA NITROGEN 5 MG/DL (7-18); CALCIUM 8.7 MG/DL (8.5-10.1); CHLORIDE 98 MEQ/L (98-107); GLUCOSE,RANDOM 99 MG/DL (74-106); SODIUM (NA) 137 MEQ/L (136-145)
[2017-09-21 07:03] LABS: AST (GOT) 48 U/L (15-37); CREATININE 0.44 MG/DL (0.50-1.00); GLOMERULAR FILTRATION RATE 141 ML/MIN (>89)
[2017-09-21 07:07] LABS: ALKALINE PHOSPHATASE 188 U/L (45-117); ALT (GPT) 68 U/L (10-53); TOTAL BILIRUBIN ADULT 1.2 MG/DL (0.2-1.0); TOTAL PROTEIN 6.3 GM/DL (6.4-8.2)
[2017-09-21] MEDS ORDERED: OXYC-392 PO (09:00)
[2017-09-21] MEDS: amLODIPine BESYLATE 5 MG TAB PO SCH (09:17)
[2017-09-21] MEDS: DOCUSATE SODIUM 50 MG/SENNA 8.6 MG TAB PO SCH (09:17)
[2017-09-21] MEDS: APIXABAN 5 MG TABLET PO SCH (09:17)
--- NOTE | 2017-09-21 10:02 | PD.ONC.PN ---
Subjective Subjective Remarks Afebrile overnight. Patient resting in bed in nad. No complaints. States pain is well controlled. No bleeding. Feels ready to go home. Objective Data Date Time Temp Pulse Resp B/P (MAP) Pulse Ox O2 Delivery O2 Flow Rate FiO2 09/21/17 08:00 65 09/21/17 08:00 98.1 73 20 114/67 (83) 97 09/21/17 06:00 62 09/21/17 05:00 64 09/21/17 04:00 66 09/21/17 04:00 98.1 66 16 111/52 (71) 97 09/21/17 03:00 68 09/21/17 02:00 70 09/21/17 01:00 70 09/21/17 00:00 98.1 70 18 134/72 (92) 97 09/21/17 00:00 65 09/20/17 23:00 68 09/20/17 22:00 72 09/20/17 21:00 74 09/20/17 20:00 98.6 75 16 135/75 (95) 99 09/20/17 20:00 83 09/20/17 19:00 78 09/20/17 18:00 70 09/20/17 17:00 70 09/20/17 14:50 97.4 87 18 113/55 (74) 96 09/20/17 14:20 80 16 114/64 (81) 97 09/20/17 13:50 75 18 104/50 (68) 96 09/20/17 13:35 98.5 83 20 102/45 (64) 92 09/20/17 13:35 98.5 83 18 102/45 (64) 92 09/20/17 12:15 62 18 109/60 (76) 93 09/20/17 11:45 61 18 109/63 (78) 93 09/20/17 11:15 64 18 107/60 (76) 95 09/20/17 11:00 98.2 63 20 107/60 (76) 96 09/21/17 09/21/17 09/21/17 07:00 15:00 23:00 Intake Total 1440 ml Output Total 1700 ml Balance -260 ml Result Diagram: 09/21/17 0609/21/17 06 Laboratory Results Laboratory Tests Test 09/21/17 06:01 White Blood Count 6.8 TH/MM3 Red Blood Count 3.52 MIL/MM3 Hemoglobin 10.5 GM/DL Hematocrit 30.6 % Mean Corpuscular Volume 86.8 FL Mean Corpuscular Hemoglobin 29.9 PG Mean Corpuscular Hemoglobin Concent 34.4 % Red Cell Distribution Width 11.9 % Platelet Count 263 TH/MM3 Mean Platelet Volume 7.8 FL Neutrophils (%) (Auto) 63.4 % Lymphocytes (%) (Auto) 20.3 % Monocytes (%) (Auto) 12.9 % Eosinophils (%) (Auto) 2.6 % Basophils (%) (Auto) 0.8 % Neutrophils # (Auto) 4.3 TH/MM3 Lymphocytes # (Auto) 1.4 TH/MM3 Monocytes # (Auto) 0.9 TH/MM3 Eosinophils # (Auto) 0.2 TH/MM3 Basophils # (Auto) 0.1 TH/MM3 CBC Comment DIFF FINAL Differential Comment Blood Urea Nitrogen 5 MG/DL Creatinine 0.44 MG/DL Random Glucose 99 MG/DL Total Protein 6.3 GM/DL Albumin 2.7 GM/DL Calcium Level 8.7 MG/DL Alkaline Phosphatase 188 U/L Aspartate Amino Transf (AST/SGOT) 48 U/L Alanine Aminotransferase (ALT/SGPT) 68 U/L Total Bilirubin 1.2 MG/DL Sodium Level 137 MEQ/L Potassium Level 3.8 MEQ/L Chloride Level 98 MEQ/L Carbon Dioxide Level 29.5 MEQ/L Anion Gap 10 MEQ/L Estimat Glomerular Filtration Rate 141 ML/MIN Administered Medications Medications (Trade) Dose Ordered Sig/Mlika Route PRN Reason Start Time Stop Time Status Last Admin Dose Admin Oxycodone HCl (Roxicodone) 10 mg Q4H PRN PO PAIN 6-10 09/17/17 11:15 09/21/17 09:17 Amlodipine Besylate (Norvasc) 2.5 mg DAILY PO 09/18/17 09:00 09/21/17 09:17 Senna/Docusate Sodium (Marcela-Colace) 1 tab BID PO 09/18/17 09:00 09/21/17 09:17 Polyethylene Glycol (Miralax) 17 gm DAILY PRN PO mild constipation 09/18/17 09:15 09/18/17 11:17 Lactulose (Lactulose Liq) 30 ml TID PRN PO severe constipation 09/18/17 15:45 09/19/17 08:46 Apixaban (Eliquis) 5 mg BID PO 09/20/17 21:00 09/21/17 09:17 Objective Remarks GENERAL: Pleasant elderly female, upright in bed in nad. SKIN: Warm and dry. HEAD: Normocephalic. EYES: No injection or drainage. NECK: Supple, trachea midline. CARDIOVASCULAR: Regular rate and rhythm. RESPIRATORY: Breath sounds equal bilaterally. No accessory muscle use. GASTROINTESTINAL: Abdomen soft, mildly tender around RUQ. EXTREMITIES: No cyanosis NEUROLOGICAL: awake and alert, normal speech. moving all extremities. Assessment/Plan Problem List: (1) Abdominal mass ICD Codes: R19.00 - Intra-abdominal and pelvic swelling, mass and lump, unspecified site Plan: --Mass in the neck of the pancreas with multiple liver masses most suspicious for a pancreatic cancer. --s/p biopsy and port placement in IR on 09/20 --mid epigastric pain started six months ago. --admitted to [facility] last week, CT of the abdomen and pelvis showed a 3 x1.90 cm mass in the pancreatic neck. There was atrophy of the pancreatic tail with mild dilatation of pancreatic duct. There area also multiple liver masses, largest measured up to 4.8 cm and there was also a 2.2 cm lymph node in the donny hepatis area. Her tumor marker CA19-9 was more than84,000. The clinical picture is most consistent with metastatic pancreatic cancer. I went over the radiologic findings with the patient. (2) Pulmonary embolism ICD Codes: I26.99 - Other pulmonary embolism without acute cor pulmonale Plan: --currently on heparin gtt. started 09/18/17 --last eliquis on 09/17/17 int he AM --CT angiogram last week showed acute pulmonary embolism in the left lower lobe. Ultrasound did not show any deep venous thrombosis. --She has hypercoagulable state due to underlying malignancy. Assessment 71y/o female with suspected pancreatic cancer. h/o Hypertension Recent diagnosis of pulmonary embolism. Pancreatic neck mass. Liver masses Plan 1. continue Eliquis 5mg PO BID 2. clear for discharge. 3. follow up in clinic in 1 week--face sheet faxed to new patient referrals for follow up. Attending Statement The exam, history, and the medical decision-making described in the above note were completed with the assistance of the mid-level provider. I reviewed and agree with the findings presented. I attest that I had a [id number] encounter with the patient on the same day, and personally performed and documented my assessment and findings in the medical record. Late entry. When I saw her in the morning, she is feeling better. Abdominal pain is controlled. Tolerated the biopsy and port placement. F/u oncology clinic next week, if she confirmed to have mets pancreatic cancer, plan to treat with palliative chemo as she wants to be aggressive. Jess Bhakta Sep 21, 2017 10:02 Urbano Olivera MD Sep 21, 2017 19:13
--- NOTE | 2017-09-21 11:06 | HHI.DS ---
Discharge Summary Admission Date Sep 17, 2017 at 11:39 Discharge Date: Sep 21, 2017 Admitting Diagnosis abdominal pain (1) Intractable abdominal pain ICD Code: R10.9 - Unspecified abdominal pain Diagnosis: Principal Status: Acute Procedures Port placement Abdominal mass biopsy (liver) Brief History - From Admission patient is a 71 y/o female with history of hypertension and PE presented to ER with abdominal pain. she says that she's had abdominal pain for at least six months. pain was more or less epigastric with on and off radiation to the RUQ. pain was not associated with nausea or vomiting. she says that she had EGD and colonoscopy which showed ' just polyps'. she was recently admitted to the [facility] where she was found to have PE and pancreatic/ liver mass. she was discharged with outpatient follow-ups but because of worsening pain she decided to come back to ER. CBC/BMP: 09/21/17 0601 09/21/17 0601 Significant Findings Laboratory Tests Test 09/18/17 16:02 09/19/17 00:10 09/19/17 04:47 09/19/17 10:40 Activated Partial Thromboplast Time 36.3 SEC (24.3-30.1) 38.3 SEC (24.3-30.1) Blood Urea Nitrogen 3 MG/DL (7-18) Creatinine 0.45 MG/DL (0.50-1.00) Albumin 2.9 GM/DL (3.4-5.0) Alkaline Phosphatase 215 U/L (45-117) Aspartate Amino Transf (AST/SGOT) 59 U/L (15-37) Alanine Aminotransferase (ALT/SGPT) 94 U/L (10-53) Test 09/19/17 18:18 09/20/17 01:30 09/20/17 04:05 09/21/17 06:01 Activated Partial Thromboplast Time 40.1 SEC (24.3-30.1) 40.8 SEC (24.3-30.1) Red Blood Count 3.48 MIL/MM3 (4.00-5.30) 3.52 MIL/MM3 (4.00-5.30) Hemoglobin 10.2 GM/DL (11.6-15.3) 10.5 GM/DL (11.6-15.3) Hematocrit 30.3 % (35.0-46.0) 30.6 % (35.0-46.0) Monocytes (%) (Auto) 12.4 % (0.0-8.0) 12.9 % (0.0-8.0) Blood Urea Nitrogen 4 MG/DL (7-18) 5 MG/DL (7-18) Creatinine 0.44 MG/DL (0.50-1.00) 0.44 MG/DL (0.50-1.00) Random Glucose 107 MG/DL (74-106) Albumin 2.7 GM/DL (3.4-5.0) 2.7 GM/DL (3.4-5.0) Alkaline Phosphatase 190 U/L (45-117) 188 U/L (45-117) Aspartate Amino Transf (AST/SGOT) 47 U/L (15-37) 48 U/L (15-37) Alanine Aminotransferase (ALT/SGPT) 72 U/L (10-53) 68 U/L (10-53) Total Bilirubin 1.1 MG/DL (0.2-1.0) 1.2 MG/DL (0.2-1.0) Total Protein 6.3 GM/DL (6.4-8.2) PE at Discharge GENERAL: This is a well-nourished, well-developed patient, in no apparent distress. CARDIOVASCULAR: Regular rate and rhythm without murmurs, gallops, or rubs. RESPIRATORY: Clear to auscultation. Breath sounds equal bilaterally. No wheezes , rales, or rhonchi. GASTROINTESTINAL: Abdomen soft, mild epigastric tenderness, nondistended. No hepato-splenomegaly, or palpable masses. No guarding. MUSCULOSKELETAL: Extremities without clubbing, cyanosis, or edema. No joint tenderness, effusion, or edema noted. No calf tenderness. Negative Homans sign bilaterally. NEUROLOGICAL: Awake and alert. Cranial nerves II through XII intact. Motor and sensory grossly within normal limits. Five out of 5 muscle strength in all muscle groups. Normal speech. Hospital Course Mrs. Sinclair is a 71-year-old female. She was admitted secondary to irretractable abdominal pain. She had previously had a recent pulmonary embolism and was on Eliquis. An abdominal mass is present and may have been contributory to her abdominal pain. Pain treatments were adjusted and she's currently having pain control on oxycodone. While in this hospital she's had a biopsy of her liver/pancreas mass and a port placed. Eliquis has been resumed and she is stable without evidence of bleeding. Pain continues to be controlled. Medically stable for discharge home today. Pt Condition on Discharge: Stable Discharge Disposition: Discharge Home Discharge Time: <= 30 minutes Discharge Instructions DIET: Follow Instructions for: As Tolerated, No Restrictions Activities you can perform: Regular-No Restrictions Follow up Referrals: Oncology/Hematology - 1 Week @ [facility] with Urbano Olivera MD PCP Follow-up - 2 Weeks New Medications: Oxycodone (Oxycodone) 5 Mg Tab 5 MG PO Q6H PRN for Pain, #60 TAB Continued Medications: Amlodipine (Amlodipine) 2.5 Mg Tab 2.5 MG PO DAILY for Blood Pressure Management, #30 TAB 0 Refills Apixaban (Eliquis) 5 Mg Tab 5 MG PO BID for Blood Clot Prevention, #14 TAB 0 Refills Polyethylene Glycol 3350 Powder (Polyethylene Glycol 3350 Powder) 17 Gram Pow 17 GM PO DAILY for Constipation, #1 BOTTLE 0 Refills Discontinued Medications: Tramadol (Tramadol) 50 Mg Tab 50 MG PO Q4H PRN for PAIN, TAB 0 Refills Stephan Uribe MD Sep 21, 2017 11:06
== END 2017-09-21 12:31 | disposition home or self-care (01) | DRG 436 ==
LOC: NEPE 08:14 → NEDA 11:39 → HCIN 13:06
PROVIDERS: ADMIT Hospitalist; ATTEND Hospitalist
PROC: 0FB03ZX Excision of Liver, Percutaneous Approach, Diagnostic (ICD-10-PCS; principal; 2017-09-20)
PROC: 0JH60WZ Insertion of Totally Implantable Vascular Access Device into Chest Subcutaneous Tissue and Fascia, Open Approach (ICD-10-PCS; 2017-09-20)
PROC: 02HV33Z Insertion of Infusion Device into Superior Vena Cava, Percutaneous Approach (ICD-10-PCS; 2017-09-20)
DX: C78.7 Secondary malignant neoplasm of liver and intrahepatic bile duct (principal); C25.9 Malignant neoplasm of pancreas, unspecified; E87.1 Hypo-osmolality and hyponatremia; D68.69 Other thrombophilia; I10 Essential (primary) hypertension; K21.9 Gastro-esophageal reflux disease without esophagitis; G89.3 Neoplasm related pain (acute) (chronic); K59.00 Constipation, unspecified; Z86.718 Personal history of other venous thrombosis and embolism; Z86.711 Personal history of pulmonary embolism; Z79.01 Long term (current) use of anticoagulants
CPT/HCPCS: 36561; 47000; 76937; 77001; 77012; 80048; 80053; 83690; 85025; 85610; 85730; 88307; 88341; 88342; 93005; 96374; 96375; 99152; 99153; C1788; J1170; J1580; J1642; J1644; J1650; J2250; J2405; J3010; J3370; J7030; J7050

== ENCOUNTER 2018-02-11 10:54 | Observation (INO) ==
[2018-02-11] MEDS ORDERED: *morphine SULFATE 4 MG/ML PERIprocedure ONLY IV.PUSH ONE (12:02)
--- NOTE | 2018-02-11 12:11 | ED ---
HPI General Chief Complaint: Abdominal Pain Stated Complaint: Medical/PHY sent Time Seen by Provider: 02/11/18 11:47 Source: patient and family Limitations: no limitations History of Present Illness HPI narrative: 72-year-old female presents to the emergency department for increasing abdominal pressure and pain over the past 2 weeks. Patient is currently undergoing chemotherapy for metastatic pancreatic cancer by Dr. Olivera. She states her last chemotherapy was on January 28, 2018 and she is on a 2 week break. She recently had a CT scan done on February 07, 2018. She went to her primary care physician to follow-up today which showed new moderate amount of ascitic fluid. She was instructed to come to the emergency department for abdominal pain, ascites. The patient currently rates her pain 10/10, pressure, to the abdomen without radiation. No fevers or chills. No chest pain or shortness of breath. She does take oxycodone at home for pain, last took at 1 AM this morning without improvement. No exacerbating or alleviating factors. Moderate severity. MD complaint: abdominal pain Onset (ago): week(s) (2) Pain Consistency: constant Location: diffuse Severity: moderate Severity scale (1-10): >10 Quality: fullness Radiation: none Relieving factors: nothing Exacerbating factors: nothing Associated symptoms: denies other symptoms Treatments prior to arrival: prescription analgesics Related Data Home Medications Medication Instructions Recorded Confirmed Eliquis 5 mg PO BID 02/11/18 02/11/18 oxycodone 5 mg PO Q4-6H PRN 02/11/18 02/11/18 Allergies Allergy/AdvReac Type Severity Reaction Status Date / Time ciprofloxacin Allergy Severe Anaphylaxis Verified 02/11/18 11:38 cefaclor Allergy Intermediate hives Verified 02/11/18 11:38 cefprozil Allergy Intermediate hives Verified 02/11/18 11:38 estrogens, conjugated Allergy Intermediate hives Verified 02/11/18 11:38 Influenza Virus Vaccines Allergy Intermediate "was in Verified 02/11/18 11:38 bed sick for 2 weeks after receiving it" latex Allergy Intermediate blisters Verified 02/11/18 11:38 Latex, Natural Rubber Allergy Intermediate blisters Verified 02/11/18 11:38 nitrofurantoin Allergy Intermediate hives Verified 02/11/18 11:38 pecan nut Allergy Intermediate Anaphylaxis Verified 02/11/18 11:38 propoxyphene Allergy Intermediate hives Verified 02/11/18 11:38 terfenadine Allergy Intermediate hives Verified 02/11/18 11:38 mold Allergy Unknown Congestion Verified 02/11/18 11:38 pollen extracts Allergy Unknown Congestion Verified 02/11/18 11:38 Cladosporium Herbarum Allergy Intermediate hives Uncoded 02/11/18 11:38 Ani House Dust Allergy Intermediate hives Uncoded 02/11/18 11:38 stephylium Allergy Intermediate it is a Uncoded 02/11/18 11:38 mold and causes hives bermuda grass Allergy Unknown Congestion Uncoded 02/11/18 11:38 calamari Allergy Unknown Congestion Uncoded 02/11/18 11:38 dust mites Allergy Unknown Congestion Uncoded 02/11/18 11:38 pepper tree Allergy Unknown Congestion Uncoded 02/11/18 11:38 pet dander Allergy Unknown Congestion Uncoded 02/11/18 11:38 melva Allergy Unknown Congestion Uncoded 02/11/18 11:38 Review of Systems ROS Unobtainable All other systems reviewed negative except as stated in [facility] Medical History Medical History Port-A-Cath in place (Acute) Pancreas cancer (Acute) Surgical History Surgical History Hx of appendectomy (Acute) Social History Social History Substance History: No History of Abuse Second Hand Smoke Exposure: No Smoking Status: Never smoker How Often Do You Have a Drink Containing Alcohol: 2 to 4 times a month Recent Travel in [facility] within the Last 8 Weeks: No Recent Out of Country Travel within the Last 8 Weeks: No Immunization History Tetanus Immunization: Unsure Hx Influenza Vaccine This Season: No Exam Const General: cooperative and ill appearing chronically Orientation: alert, awake and oriented x3 HENMT Head: normal to inspection Eyes Sclera: scleral abnormality (Jaundice) bilaterally Neck Neck: normal visual inspection Chest Chest: normal inspection of the chest Resp Effort & Inspection: normal respiratory effort and able to speak in complete sentences Auscultation: clear to auscultation bilaterally Cardio Rate: regular rate Rhythm: regular rhythm GI Inspection: distended Palpation: firm, tender and ascites Back/Spine/Pelvis Back: no CVA tenderness Cervical Spine: normal cervical lordosis Thoracic/Lumbar Spine: thoracic and lumbar spine normal to inspection Skin General: jaundice Rashes: no rashes Trauma: no lacerations or abrasions Neuro General: alert, awake and oriented x3 Cognition: normal cognition Speech: speech normal Motor: muscle tone normal throughout Extrem General: normal to inspection Psych Appearance: grossly normal and well kempt Mental Status: mental status grossly normal Speech and Movement: speech and movement normal Mood: congruent mood Affect: normal affect Attitude: cooperative Thought Process: normal Thought Content: normal Judgment: judgment good Course Initial Documented Vital Signs Temperature 98.0 F 02/11/18 10:56 Pulse Rate 96 H 02/11/18 10:56 Respiratory Rate 18 02/11/18 10:56 Blood Pressure 127/69 02/11/18 10:56 Pulse Oximetry 100 02/11/18 10:56 Last Documented Vital Signs Temperature 98.0 F 02/11/18 10:56 Pulse Rate 98 H 02/11/18 13:21 Respiratory Rate 24 02/11/18 13:23 Blood Pressure 127/63 02/11/18 13:21 Pulse Oximetry 98 02/11/18 13:21 Medical Decision Making BENJAMIN Attestation BENJAMIN supervised visit: No MDM Narrative Medical decision making narrative: 72-year-old female presents to the emergency department for increasing abdominal distention, ascites, abdominal pain. Patient recently had CT scan done on January 30, 2018. Patient is currently being treated with chemotherapy by Dr. Olivera for metastatic pancreatic cancer. IV access obtained. CBC, CMP, lipase, PTT, PT/INR, UA ordered and pending. Patient is given morphine 4 mg IV, Reglan 10 mg IV. CBC shows no acute abnormality. CMP shows hyponatremia 129, elevated liver enzymes, bilirubin 7.9. PT is 14.0, INR 1.4, PTT 31.3. I discussed the case with the patient's oncologist, Dr. Jennings. He recommends admission, paracentesis. Order for interventional radiologist to do paracentesis is placed. Dr. García accepted admission. Differential Diagnosis Differential Diagnosis: Ascites versus intractable abdominal pain versus electrolyte abnormality versus UTI Medical Records Medical records reviewed: Yes I reviewed the patient's medical records. Lab Data Result diagrams: 02/11/18 12:30 02/11/18 12:30 Lab Results 02/11/18 02/11/18 02/11/18 Range/Units 12:30 12:30 12:30 WBC 9.0 (4.0-11.0) th/mm3 RBC 3.40 L (4.00-5.30) mil/mm3 Hgb 10.1 L (11.6-15.3) gm/dL Hct 30.2 L (35.0-46.0) % MCV 88.8 (80.0-100.0) fL MCH 29.6 (27.0-34.0) pg MCHC 33.4 (32.0-36.0) % RDW 16.0 (11.6-17.2) % Plt Count 442 (150-450) th/mm3 MPV 7.1 (7.0-11.0) fL Neut % (Auto) 68.6 (16.0-70.0) % Lymph % (Auto) 11.8 (9.0-44.0) % [place] % (Auto) 18.2 H (0.0-8.0) % Eos % (Auto) 0.5 (0.0-4.0) % Baso % (Auto) 0.9 (0.0-2.0) % Neut # (Auto) 6.2 (1.8-7.7) th/mm3 Lymph # (Auto) 1.1 (1.0-4.8) th/mm3 [place] # (Auto) 1.6 H (0.0-0.9) th/mm3 Eos # (Auto) 0.0 (0.0-0.4) th/mm3 Baso # (Auto) 0.1 (0.0-0.2) th/mm3 WBC Differential . Differential Comment Auto diff final PT 14.0 H (9.8-11.6) sec INR 1.4 Ratio APTT 31.3 H (24.3-30.1) sec Sodium 129 L (136-145) meq/L Potassium 4.5 (3.5-5.1) meq/L Chloride 93 L (98-107) meq/L Carbon Dioxide 28.2 (21.0-32.0) meq/L Anion Gap 8 (5-15) meq/L BUN 10 (7-18) mg/dL Creatinine 0.41 L (0.50-1.00) mg/dL Estimated GFR Greater than 89 (>89) mL/min Random Glucose 87 (74-106) mg/dL Calcium 8.7 (8.5-10.1) mg/dL Total Bilirubin 7.9 H (0.2-1.0) mg/dL AST 111 H (15-37) U/L ALT 99 H (10-53) U/L Alkaline Phosphatase 959 H (45-117) U/L Total Protein 5.8 L (6.4-8.2) g/dL Albumin 2.3 L (3.4-5.0) g/dL Lipase 96 (73-393) U/L Urine Color (Yellw/Straw) Urine Clarity (Clear) Urine pH (5.0-8.5) Ur Specific [place] (1.002-1.035) Urine Protein (Neg-Trace) mg/dL Urine Glucose (UA) (Negative) mg/dL Urine Ketones (Negative) mg/dL Urine Occult Blood (Negative) Urine Nitrate (Negative) Urine Bilirubin (Negative) Urine Ictotest (Negative) Urine Urobilinogen (Less than 2) mg/dL Ur Leukocyte Esterase (Negative) Urine RBC (0-3) /hpf Urine WBC (0-5) /hpf Ur Squamous Epith Cells (0-5) /hpf Urine Mucus (Occasional) /lpf Micro UA Comment Urine Culture Comments 02/11/18 Range/Units 12:55 WBC (4.0-11.0) th/mm3 RBC (4.00-5.30) mil/mm3 Hgb (11.6-15.3) gm/dL Hct (35.0-46.0) % MCV (80.0-100.0) fL MCH (27.0-34.0) pg MCHC (32.0-36.0) % RDW (11.6-17.2) % Plt Count (150-450) th/mm3 MPV (7.0-11.0) fL Neut % (Auto) (16.0-70.0) % Lymph % (Auto) (9.0-44.0) % [place] % (Auto) (0.0-8.0) % Eos % (Auto) (0.0-4.0) % Baso % (Auto) (0.0-2.0) % Neut # (Auto) (1.8-7.7) th/mm3 Lymph # (Auto) (1.0-4.8) th/mm3 [place] # (Auto) (0.0-0.9) th/mm3 Eos # (Auto) (0.0-0.4) th/mm3 Baso # (Auto) (0.0-0.2) th/mm3 WBC Differential Differential Comment PT (9.8-11.6) sec INR Ratio APTT (24.3-30.1) sec Sodium (136-145) meq/L Potassium (3.5-5.1) meq/L Chloride (98-107) meq/L Carbon Dioxide (21.0-32.0) meq/L Anion Gap (5-15) meq/L BUN (7-18) mg/dL Creatinine (0.50-1.00) mg/dL Estimated GFR (>89) mL/min Random Glucose (74-106) mg/dL Calcium (8.5-10.1) mg/dL Total Bilirubin (0.2-1.0) mg/dL AST (15-37) U/L ALT (10-53) U/L Alkaline Phosphatase (45-117) U/L Total Protein (6.4-8.2) g/dL Albumin (3.4-5.0) g/dL Lipase (73-393) U/L Urine Color Bobbi (Yellw/Straw) Urine Clarity Hazy H (Clear) Urine pH 5.0 (5.0-8.5) Ur Specific [place] 1.025 (1.002-1.035) Urine Protein 30 H (Neg-Trace) mg/dL Urine Glucose (UA) 50 (Negative) mg/dL Urine Ketones Trace H (Negative) mg/dL Urine Occult Blood Negative (Negative) Urine Nitrate Negative (Negative) Urine Bilirubin Moderate H (Negative) Urine Ictotest Positive H (Negative) Urine Urobilinogen 4 or greater (Less than 2) mg/dL Ur Leukocyte Esterase Negative (Negative) Urine RBC 1 (0-3) /hpf Urine WBC 5 (0-5) /hpf Ur Squamous Epith Cells <1 (0-5) /hpf Urine Mucus Many H (Occasional) /lpf Micro UA Comment Culture not ind Urine Culture Comments Culture not ind Discharge Plan Discharge Disposition Patient Disposition: 30 Still Patient Discharge Details Anticipated Discharge Date: 02/16/18 Physicians Team ED Provider: Lorri An ED Midlevel Provider: Heydi Arauz Primary Care Provider: UNKNOWN, Rxs /Orders / Referrals /Forms Prescriptions: No Action oxycodone 5 mg Tablet 5 mg PO Q4-6H PRN (Reason: Acute Pain) RF: 0 Eliquis 5 mg PO BID RF: 0 Discharge Interventions Interventions: Vital Signs Last Done: 02/11/18 13:21 Status ED Status: With Doctor
[2018-02-11] MEDS ORDERED: Morphine Inj 4 MG/ML Vial IV.PUSH ONE (12:33)
[2018-02-11 12:43] LABS: Baso # (Auto) 0.1 th/mm3 (0.0-0.2); Baso % (Auto) 0.9 % (0.0-2.0); Eos % (Auto) 0.5 % (0.0-4.0); Hematocrit 30.2 % (35.0-46.0); Hemoglobin 10.1 gm/dL (11.6-15.3); Lymph # (Auto) 1.1 th/mm3 (1.0-4.8); Lymph % (Auto) 11.8 % (9.0-44.0); Mean Corpuscular HGB Conc 33.4 % (32.0-36.0); Mean Corpuscular Hemoglobin 29.6 pg (27.0-34.0); Mean Corpuscular Volume 88.8 fL (80.0-100.0); Mean Platelet Volume 7.1 fL (7.0-11.0); Mono # (Auto) 1.6 th/mm3 (0.0-0.9); Mono % (Auto) 18.2 % (0.0-8.0); Neut # (Auto) 6.2 th/mm3 (1.8-7.7); Neut % (Auto) 68.6 % (16.0-70.0); Platelet Count 442 th/mm3 (150-450)
[2018-02-11 12:57] LABS: Activated Partial Thrombo Time 31.3 sec (24.3-30.1); INR 1.4 Ratio
[2018-02-11 13:14] LABS: Albumin 2.3 g/dL (3.4-5.0); Anion Gap 8 meq/L (5-15); Aspartate Aminotransferase 111 U/L (15-37); Blood Urea Nitrogen 10 mg/dL (7-18); Calcium 8.7 mg/dL (8.5-10.1); Carbon Dioxide 28.2 meq/L (21.0-32.0); Chloride 93 meq/L (98-107); Glomerular Filtration Rate Greater Than 89 mL/min (>89); Glucose,Random 87 mg/dL (74-106); Lipase 96 U/L (73-393); Potassium 4.5 meq/L (3.5-5.1); Sodium 129 meq/L (136-145)
[2018-02-11 13:15] LABS: Alanine Aminotransferase 99 U/L (10-53)
[2018-02-11 13:18] LABS: Alkaline Phosphatase 959 U/L (45-117); Total Protein 5.8 g/dL (6.4-8.2)
[2018-02-11 13:31] LABS: Bilirubin,Urine Moderate (Negative); Clarity,Urine Hazy (Clear); Color,Urine Amber (Yellw/Straw); Glucose,Urine (UA) 50 mg/dL (Negative); Leukocyte Esterase,Urine Negative (Negative); Mucus,Urine Many /lpf (Occasional); Nitrite,Urine Negative (Negative); Specific Gravity,Urine 1.025 (1.002-1.035); Squamous Epithelial Cell,Urine <1 /hpf (0-5); Urobilinogen,Urine 4 or Greater mg/dL (Less than 2)
[2018-02-11 13:33] LABS: Ictotest,Urine Positive (Negative)
[2018-02-11] MEDS ORDERED: Sodium Chlor 0.9% Inj 500 ML IV.SIG ONE (13:36)
[2018-02-11] MEDS ORDERED: Bisacodyl 10 MG Supp RECTAL PRN (15:32)
[2018-02-11] MEDS ORDERED: Temazepam 15 MG Capsule PO PRN ×2 (15:32→15:38)
[2018-02-11] MEDS ORDERED: Acetaminophen 325 MG Tablet PO PRN (15:38)
[2018-02-11] MEDS ORDERED: Naloxone Inj 0.4 MG/ML Vial IV.PUSH PRN (15:41)
--- NOTE | 2018-02-11 15:56 | P.HP ---
History of Present Illness Primary Care Physician: UNKNOWN History of Present Illness: 72-year-old female for past medical history of metastasis pancreatic cancer who presented to the ED for evaluation of abdominal pain 2 weeks duration, rated over 10 in intensity associated with occasional shortness of breath however denies any nausea or vomiting. Patient has a history of DVT for which she is currently on oral anticoagulation. She also complains of increased generalized fatigue - Diagnosis (1) Ascites (2) Pancreatic cancer (3) History of DVT (deep vein thrombosis) PMFSH - History History Provided By: Patient - Medical History Medical History: Medical History (Last Updated 02/19/18 @ 22:17 by Wendy Hernandez) Hypertension Pancreas cancer Port-A-Cath in place Pulmonary embolism - Surgical History Surgical History: Surgical History (Last Updated 02/19/18 @ 22:11 by Wendy Hernandez) Hx of appendectomy Status post chemotherapy - Family History Family History: Family History (Last Updated 02/20/18 @ 10:14 by VINCENT Knight) Father Prostate cancer Mother Thyroid cancer - Tobacco History Second Hand Smoke Exposure: No Tobacco Use In Past 30 Days: No Smoking Status: Never smoker - Alcohol History How Often Do You Have a Drink Containing Alcohol: 2 to 4 times a month - Substance Use History Substance History: No History of Abuse - Travel History Recent Travel in the [place] Within the Last 8 Weeks: No Recent Travel Out of the Country Within the Last 8 Weeks: No - Immunization History Tetanus Immunization: Unsure Hx Influenza Vaccine This Season: No Medications and Allergies Active Medications: Active Medications Acetaminophen (Tylenol) 650 mg PO Q4H PRN PRN Reason: Temp > 100.4 Hydrocodone Bitart/Acetaminophen ([place] 5/325) 1 tab PO Q4H PRN PRN Reason: PAIN SCALE 3 TO 5 Hydrocodone Bitart/Acetaminophen ([place] 7.5/325) 1 tab PO Q4H PRN PRN Reason: PAIN SCALE 6 TO 10 Al Hydroxide/Mg Hydroxide (Milk Of Magnesia Liq) 30 ml PO Q12H PRN PRN Reason: Mild Constipation Bisacodyl (Dulcolax Supp) 10 mg RECTAL DAILY PRN PRN Reason: SEVERE CONSITIPATION Lactulose (Lactulose Liq) 30 ml PO DAILY PRN PRN Reason: SEVERE CONSITIPATION Naloxone HCl (Narcan Inj) 0.4 mg IV.PUSH UNSCH PRN PRN Reason: SEE LABEL COMMENTS Ondansetron HCl (Zofran Inj) 4 mg IV.PUSH Q6H PRN PRN Reason: NAUSEA OR VOMITING Senna/Docusate Sodium (Marcela-Colace) 1 tab PO BID NELLIE Senna/Docusate Sodium (Marcela-Colace) 1 tab PO BID NELLIE Sennosides (Senokot) 17.2 mg PO Q12H PRN PRN Reason: Moderate Constipation Sodium Chloride (Ns Flush) 2 ml IV.FLUSH PRN PRN PRN Reason: FLUSH AFTER USING IV ACCESS Temazepam (Restoril) 15 mg PO HS PRN PRN Reason: INSOMNIA Temazepam (Restoril) 15 mg PO HS PRN PRN Reason: INSOMNIA Allergies Allergy/AdvReac Type Severity Reaction Status Date / Time ciprofloxacin Allergy Severe Anaphylaxis Verified 02/11/18 11:38 cefaclor Allergy Intermediate hives Verified 02/11/18 11:38 cefprozil Allergy Intermediate hives Verified 02/11/18 11:38 estrogens, conjugated Allergy Intermediate hives Verified 02/11/18 11:38 Influenza Virus Vaccines Allergy Intermediate "was in Verified 02/11/18 11:38 bed sick for 2 weeks after receiving it" latex Allergy Intermediate blisters Verified 02/11/18 11:38 Latex, Natural Rubber Allergy Intermediate blisters Verified 02/11/18 11:38 nitrofurantoin Allergy Intermediate hives Verified 02/11/18 11:38 pecan nut Allergy Intermediate Anaphylaxis Verified 02/11/18 11:38 propoxyphene Allergy Intermediate hives Verified 02/11/18 11:38 terfenadine Allergy Intermediate hives Verified 02/11/18 11:38 mold Allergy Unknown Congestion Verified 02/11/18 11:38 pollen extracts Allergy Unknown Congestion Verified 02/11/18 11:38 Cladosporium Herbarum Allergy Intermediate hives Uncoded 02/11/18 11:38 Ani House Dust Allergy Intermediate hives Uncoded 02/11/18 11:38 stephylium Allergy Intermediate it is a Uncoded 02/11/18 11:38 mold and causes hives bermuda grass Allergy Unknown Congestion Uncoded 02/11/18 11:38 calamari Allergy Unknown Congestion Uncoded 02/11/18 11:38 dust mites Allergy Unknown Congestion Uncoded 02/11/18 11:38 pepper tree Allergy Unknown Congestion Uncoded 02/11/18 11:38 pet dander Allergy Unknown Congestion Uncoded 02/11/18 11:38 melva Allergy Unknown Congestion Uncoded 02/11/18 11:38 Home Medications Medication Instructions Recorded Confirmed Type oxycodone 5 mg PO Q4-6H PRN 02/11/18 02/19/18 History Exam Vital signs: Vital Signs 02/11/18 10:56 02/11/18 11:43 02/11/18 12:38 Temperature 98.0 F Pulse Rate 96 H 85 Respiratory Rate 18 18 Blood Pressure 127/69 145/72 H Pulse Oximetry 100 100 99 02/11/18 13:21 02/11/18 13:23 02/11/18 15:00 Temperature Pulse Rate 98 H 93 H Respiratory Rate 24 24 20 Blood Pressure 127/63 139/75 Pulse Oximetry 98 98 Intake & Output 02/10/18 02/11/18 02/11/18 18:59 06:59 18:59 Intake Total 500 / 500 Balance 500 / 500 Weight 56.699 kg Intake: IV 500 / 500 NS Inj 500 ML @ Wide Open IV. 500 / 500 SIG BOLUS ONE Rx#:[id number] - Constitutional no acute distress - Routine HEENT Exam Head: Present: normocephalic Eye: Present: EOMI, PERRL ENT: Present: mucous membranes moist - Routine Neck Exam Present: supple, full ROM - Routine Respiratory Exam Present: CTA bilaterally - Routine Abdominal Exam Present: normoactive bowel sounds, tenderness, distended - Routine Extremities Exam Present: pulses intact, normal capillary refill - Routine Skin Exam Present: intact - Routine Neurological Exam Present: oriented X3, CN II-XII intact Results - Labs CBC & Chem 7: 02/11/18 12:30 02/12/18 06:00 Labs: Laboratory Results - last 24 hr 02/11/18 02/11/18 02/11/18 12:30 12:30 12:30 WBC 9.0 RBC 3.40 L Hgb 10.1 L Hct 30.2 L MCV 88.8 MCH 29.6 MCHC 33.4 RDW 16.0 Plt Count 442 MPV 7.1 Neut % (Auto) 68.6 Lymph % (Auto) 11.8 [place] % (Auto) 18.2 H Eos % (Auto) 0.5 Baso % (Auto) 0.9 Neut # (Auto) 6.2 Lymph # (Auto) 1.1 [place] # (Auto) 1.6 H Eos # (Auto) 0.0 Baso # (Auto) 0.1 WBC Differential . Differential Comment Auto diff final PT 14.0 H INR 1.4 APTT 31.3 H Sodium 129 L Potassium 4.5 Chloride 93 L Carbon Dioxide 28.2 Anion Gap 8 BUN 10 Creatinine 0.41 L Estimated GFR Greater than 89 Random Glucose 87 Calcium 8.7 Total Bilirubin 7.9 H AST 111 H ALT 99 H Alkaline Phosphatase 959 H Total Protein 5.8 L Albumin 2.3 L Lipase 96 Urine Color Urine Clarity Urine pH Ur Specific [place] Urine Protein Urine Glucose (UA) Urine Ketones Urine Occult Blood Urine Nitrate Urine Bilirubin Urine Ictotest Urine Urobilinogen Ur Leukocyte Esterase Urine RBC Urine WBC Ur Squamous Epith Cells Urine Mucus Micro UA Comment Urine Culture Comments 02/11/18 12:55 WBC RBC Hgb Hct MCV MCH MCHC RDW Plt Count MPV Neut % (Auto) Lymph % (Auto) [place] % (Auto) Eos % (Auto) Baso % (Auto) Neut # (Auto) Lymph # (Auto) [place] # (Auto) Eos # (Auto) Baso # (Auto) WBC Differential Differential Comment PT INR APTT Sodium Potassium Chloride Carbon Dioxide Anion Gap BUN Creatinine Estimated GFR Random Glucose Calcium Total Bilirubin AST ALT Alkaline Phosphatase Total Protein Albumin Lipase Urine Color Bobbi Urine Clarity Hazy H Urine pH 5.0 Ur Specific [place] 1.025 Urine Protein 30 H Urine Glucose (UA) 50 Urine Ketones Trace H Urine Occult Blood Negative Urine Nitrate Negative Urine Bilirubin Moderate H Urine Ictotest Positive H Urine Urobilinogen 4 or greater Ur Leukocyte Esterase Negative Urine RBC 1 Urine WBC 5 Ur Squamous Epith Cells <1 Urine Mucus Many H Micro UA Comment Culture not ind Urine Culture Comments Culture not ind Caprini VTE Risk Assessment Caprini VTE Risk Assessment: Moderate/High Risk (score >= 2) Caprini Risk Assessment Model: Point Value = 1 Point Value = 2 Point Value = 3 Point Value = 5 Age 41-60 Minor surgery BMI > 25 kg/m2 Swollen legs Varicose veins or History of unexplained or recurrent spontaneous Oral contraceptives or hormone replacement Sepsis (< 1 month) Serious lung disease, including pneumonia (< 1 month) Abnormal pulmonary function Acute myocardial infarction Congestive heart failure (< 1 month) History of inflammatory bowel disease Medical patient at bed rest Age 61-74 Arthroscopic surgery Major open surgery (> 45 min) Laparoscopic surgery (> 45 min) Malignancy Confined to bed (> 72 hours) Immobilizing plaster cast Central venous access Age >= 75 History of VTE Family history of VTE Factor V Leiden Prothrombin [id number] Lupus anticoagulant Anticardiolipin antibodies Elevated serum homocysteine Heparin-induced thrombocytopenia Other congenital or acquired thrombophilia Stroke (< 1 month) Elective arthroplasty Hip, pelvis, or leg fracture Acute spinal cord injury (< 1 month) Prophylaxis Regimen: Total Risk Factor Score Risk Level Prophylaxis Regimen 0-1 Low Early ambulation 2 Moderate Order ONE of the following: *Sequential Compression Device (SCD) *Heparin 5000 units SQ BID 3-4 Higher Order ONE of the following medications: *Heparin 5000 units SQ TID *Enoxaparin/Lovenox 40 mg SQ daily (WT < 150 kg, CrCl > 30 mL/min) *Enoxaparin/Lovenox 30 mg SQ daily (WT < 150 kg, CrCl > 10-29 mL/min) *Enoxaparin/Lovenox 30 mg SQ BID (WT < 150 kg, CrCl > 30 mL/min) AND/OR *Sequential Compression Device (SCD) 5 or more Highest Order ONE of the following medications: *Heparin 5000 units SQ TID (Preferred with Epidurals) *Enoxaparin/Lovenox 40 mg SQ daily (WT < 150 kg, CrCl > 30 mL/min) *Enoxaparin/Lovenox 30 mg SQ daily (WT < 150 kg, CrCl > 10-29 mL/min) *Enoxaparin/Lovenox 30 mg SQ BID (WT < 150 kg, CrCl > 30 mL/min) AND *Sequential Compression Device (SCD) Assessment and Plan - Assessment (1) Ascites Code(s): R18.8 - Other ascites Status: Chronic (2) Pancreatic cancer Code(s): C25.9 - Malignant neoplasm of pancreas, unspecified Status: Chronic (3) History of DVT (deep vein thrombosis) Code(s): Z86.718 - Personal history of other venous thrombosis and embolism Status: Chronic - Plan 72-year-old female with History of metastasis of pancreatic cancer and now with ascites Interventional radiology consulted for paracentesis February 12, 2018 Hold Eliquis History of DVT Will hold Eliquis History of metastasis of pancreatic cancer Continue with pain management accordingly Outpatient follow-up with oncology DVT prophylaxis: Hold chemical anti-prophylactic pending paracentesis Code Status: Full code Discussed Condition With: JAVIER VALENZUELA, patient (1) Ascites Qualifiers: Ascites type: malignant Qualified Code(s): R18.0 - Malignant ascites (2) Pancreatic cancer Qualifiers: Pancreatic malignancy location: unspecified Qualified Code(s): C25.9 - Malignant neoplasm of pancreas, unspecified
[2018-02-11] MEDS ORDERED: Senna/Docusate Sodium 8.6/50 MG Tablet PO SCH ×2 (21:00)
[2018-02-12 07:07] LABS: Albumin 2.1 g/dL (3.4-5.0); Anion Gap 10 meq/L (5-15); Aspartate Aminotransferase 88 U/L (15-37); Blood Urea Nitrogen 8 mg/dL (7-18); Calcium 8.5 mg/dL (8.5-10.1); Carbon Dioxide 26.2 meq/L (21.0-32.0); Chloride 96 meq/L (98-107); Glomerular Filtration Rate Greater Than 89 mL/min (>89); Glucose,Random 80 mg/dL (74-106); Potassium 4.1 meq/L (3.5-5.1); Sodium 132 meq/L (136-145)
[2018-02-12 07:13] LABS: Alanine Aminotransferase 81 U/L (10-53); Alkaline Phosphatase 845 U/L (45-117); Total Protein 5.3 g/dL (6.4-8.2)
[2018-02-12] MEDS ORDERED: Lidocaine PF 1% Inj 30 ML Vial ONE (09:53)
--- NOTE | 2018-02-12 11:22 | P.PN ---
Subjective Interval history: Follow-up visit pancreatic cancer status post chemo, abdominal distention and pain. Patient seen and examined today. at the bedside. Reports she has had her paracentesis done. States that she is feeling much better with much relief. Denies any pain or discomfort. States she is able to walk without any difficulty. Denies SOB/ dyspnea. Denies chest pain, palpitations, headaches, dizziness. Denies fevers, chills, n/v/d. Denies dysuria. Physical Exam Vital signs: Vital Signs 02/11/18 11:43 02/11/18 12:38 02/11/18 13:21 Temperature Pulse Rate 85 98 H Respiratory Rate 18 24 Blood Pressure 145/72 H 127/63 Pulse Oximetry 100 99 98 02/11/18 13:23 02/11/18 15:00 02/11/18 16:00 Temperature 98.1 F Pulse Rate 93 H 92 H Respiratory Rate 24 20 18 Blood Pressure 139/75 136/63 Pulse Oximetry 98 98 02/11/18 21:01 02/11/18 22:35 02/12/18 00:00 Temperature 97.6 F 98.5 F Pulse Rate 81 83 Respiratory Rate 17 18 17 Blood Pressure 135/75 114/60 Pulse Oximetry 98 97 02/12/18 04:00 02/12/18 08:00 02/12/18 08:19 Temperature 98.4 F 97.5 F L 98.5 F Pulse Rate 87 92 H 95 H Respiratory Rate 17 18 16 Blood Pressure 121/58 L 155/72 H 128/77 Pulse Oximetry 93 L 99 95 02/12/18 09:42 02/12/18 10:01 Temperature 99.0 F Pulse Rate 81 88 Respiratory Rate 16 16 Blood Pressure 124/69 129/71 Pulse Oximetry 97 95 Intake & Output 02/11/18 02/12/18 02/12/18 18:59 06:59 18:59 Intake Total 500 / 500 Balance 500 / 500 Weight 59.5 kg Intake: IV 500 / 500 NS Inj 500 ML @ Wide Open IV. 500 / 500 SIG BOLUS ONE Rx#:[id number] Other: # Voids 1 Date of Last Bowel Movement 02/11/18 02/11/18 Weight On Admission 59.5 kg Narrative: GENERAL: This is a thin appearing, well-developed patient, in no apparent distress. SKIN: Warm and dry. Jaundiced. HEENT: Normocephalic. Pupils equal round and reactive. Nose without bleeding. Airway patent. NECK: Trachea midline. CARDIOVASCULAR: Regular rate and rhythm without murmurs, gallops, or rubs. RESPIRATORY: Clear to auscultation. Breath sounds equal bilaterally. No wheezes , rales, or rhonchi. GASTROINTESTINAL: Abdomen soft, non-tender, nondistended. Bowel Sounds normoactive x4. MUSCULOSKELETAL: Extremities without clubbing, cyanosis, or edema. NEUROLOGICAL: Awake and alert. Oriented to time, place, person. No focal neuro deficit. Moves all extremities. Normal speech. Results - Labs CBC & Chem 7: 02/11/18 12:30 02/12/18 06:00 Laboratory Results - last 24 hr 02/11/18 02/11/18 02/11/18 12:30 12:30 12:30 WBC 9.0 RBC 3.40 L Hgb 10.1 L Hct 30.2 L MCV 88.8 MCH 29.6 MCHC 33.4 RDW 16.0 Plt Count 442 MPV 7.1 Neut % (Auto) 68.6 Lymph % (Auto) 11.8 [place] % (Auto) 18.2 H Eos % (Auto) 0.5 Baso % (Auto) 0.9 Neut # (Auto) 6.2 Lymph # (Auto) 1.1 [place] # (Auto) 1.6 H Eos # (Auto) 0.0 Baso # (Auto) 0.1 WBC Differential . Differential Comment Auto diff final PT 14.0 H INR 1.4 APTT 31.3 H Sodium 129 L Potassium 4.5 Chloride 93 L Carbon Dioxide 28.2 Anion Gap 8 BUN 10 Creatinine 0.41 L Estimated GFR Greater than 89 Random Glucose 87 Calcium 8.7 Total Bilirubin 7.9 H AST 111 H ALT 99 H Alkaline Phosphatase 959 H Total Protein 5.8 L Albumin 2.3 L Lipase 96 Urine Color Urine Clarity Urine pH Ur Specific [place] Urine Protein Urine Glucose (UA) Urine Ketones Urine Occult Blood Urine Nitrate Urine Bilirubin Urine Ictotest Urine Urobilinogen Ur Leukocyte Esterase Urine RBC Urine WBC Ur Squamous Epith Cells Urine Mucus Micro UA Comment Urine Culture Comments 02/11/18 02/12/18 12:55 06:00 WBC RBC Hgb Hct MCV MCH MCHC RDW Plt Count MPV Neut % (Auto) Lymph % (Auto) [place] % (Auto) Eos % (Auto) Baso % (Auto) Neut # (Auto) Lymph # (Auto) [place] # (Auto) Eos # (Auto) Baso # (Auto) WBC Differential Differential Comment PT INR APTT Sodium 132 L Potassium 4.1 Chloride 96 L Carbon Dioxide 26.2 Anion Gap 10 BUN 8 Creatinine 0.26 L Estimated GFR Greater than 89 Random Glucose 80 Calcium 8.5 Total Bilirubin 9.1 H AST 88 H ALT 81 H Alkaline Phosphatase 845 H Total Protein 5.3 L Albumin 2.1 L Lipase Urine Color Bobbi Urine Clarity Hazy H Urine pH 5.0 Ur Specific [place] 1.025 Urine Protein 30 H Urine Glucose (UA) 50 Urine Ketones Trace H Urine Occult Blood Negative Urine Nitrate Negative Urine Bilirubin Moderate H Urine Ictotest Positive H Urine Urobilinogen 4 or greater Ur Leukocyte Esterase Negative Urine RBC 1 Urine WBC 5 Ur Squamous Epith Cells <1 Urine Mucus Many H Micro UA Comment Culture not ind Urine Culture Comments Culture not ind - Procedures Status post paracentesis 02/12/18 Assessment and Plan - Assessment (1) Ascites Code(s): R18.8 - Other ascites Status: Acute (2) Pancreatic cancer Code(s): C25.9 - Malignant neoplasm of pancreas, unspecified Status: Acute (3) History of DVT (deep vein thrombosis) Code(s): Z86.718 - Personal history of other venous thrombosis and embolism Status: Acute - Plan 72-year-old female with past medical history of metastasis pancreatic cancer who presented to the ED for evaluation of abdominal pain 2 weeks duration History of metastasis of pancreatic cancer and now with ascites -Interventional radiology consulted for paracentesis -Hold Eliquis -Status post paracentesis, removal 3 L of fluid. -Follow-up with Dr. Olivera in the outpatient. History of DVT -May restart Eliquis tomorrow Eliquis History of metastasis of pancreatic cancer -Continue with pain management accordingly -Outpatient follow-up with oncology DVT prophylaxis: Hold chemical anti-prophylactic Code Status: Full Code Discussed Condition With: Patient, nursing, Discharge Planning: Plan to DC home today
--- NOTE | 2018-02-12 13:02 | P.DS ---
Date of admission: 02/11/18 14:59 Primary care physician: UNKNOWN Attending physician on discharge: Sofia Joseph Anticipated date of discharge: 02/12/18 Brief History from admission: 72-year-old female for past medical history of metastasis pancreatic cancer who presented to the ED for evaluation of abdominal pain 2 weeks duration, rated over 10 in intensity associated with occasional shortness of breath however denies any nausea or vomiting. Patient has a history of DVT for which she is currently on oral anticoagulation. She also complains of increased generalized fatigue DS: Diagnosis - Discharge Diagnosis (1) Ascites Status: Acute (2) Pancreatic cancer Status: Acute (3) History of DVT (deep vein thrombosis) Status: Acute DS: Summary Hospital Course: 72-year-old female for past medical history of metastasis pancreatic cancer who presented to the ED for evaluation of abdominal pain 2 weeks duration. She had been seeing Dr. Olivera in the outpatient setting s/p chemotherapy. Patient found to have ascites. Her Eliquis was held and had paracentesis done 02/12/18 with fluid removal of 3 L. Procedure was uneventful. Patient reports improvement of clinical symptoms. She can restart her Eliquis when she goes home. Follow-up with Dr. Olivera in the outpatient. Patient has met maximal benefits of hospitalization. Clinically stable for discharge. - Time Spent with Patient Total time spent providing and/or coordinating discharge services: Less than 30 minutes - Quality: VTE Deep Vein Thrombosis/Pulmonary Embolism Present on Admission: No Exam Vital signs: Vital Signs 02/11/18 13:21 02/11/18 13:23 02/11/18 15:00 Temperature Pulse Rate 98 H 93 H Respiratory Rate 24 24 20 Blood Pressure 127/63 139/75 Pulse Oximetry 98 98 02/11/18 16:00 02/11/18 21:01 02/11/18 22:35 Temperature 98.1 F 97.6 F Pulse Rate 92 H 81 Respiratory Rate 18 17 18 Blood Pressure 136/63 135/75 Pulse Oximetry 98 98 02/12/18 00:00 02/12/18 04:00 02/12/18 08:00 Temperature 98.5 F 98.4 F 97.5 F L Pulse Rate 83 87 92 H Respiratory Rate 17 17 18 Blood Pressure 114/60 121/58 L 155/72 H Pulse Oximetry 97 93 L 99 02/12/18 08:19 02/12/18 09:42 02/12/18 10:01 Temperature 98.5 F 99.0 F Pulse Rate 95 H 81 88 Respiratory Rate 16 16 16 Blood Pressure 128/77 124/69 129/71 Pulse Oximetry 95 97 95 Intake & Output 02/11/18 02/12/18 02/12/18 18:59 06:59 18:59 Intake Total 500 / 500 Balance 500 / 500 Weight 59.5 kg Intake: IV 500 / 500 NS Inj 500 ML @ Wide Open IV. 500 / 500 SIG BOLUS ONE Rx#:[id number] Other: # Voids 1 Date of Last Bowel Movement 02/11/18 02/11/18 Weight On Admission 59.5 kg Narrative: GENERAL: This is a well-nourished, well-developed patient, in no apparent distress. SKIN: Warm and dry. Jaundice HEENT: Normocephalic. Pupils equal round and reactive. Nose without bleeding. Airway patent. NECK: Trachea midline. CARDIOVASCULAR: Regular rate and rhythm without murmurs, gallops, or rubs. RESPIRATORY: Clear to auscultation. Breath sounds equal bilaterally. No wheezes , rales, or rhonchi. GASTROINTESTINAL: Abdomen soft, non-tender, nondistended. Bowel Sounds normoactive x4. MUSCULOSKELETAL: Extremities without clubbing, cyanosis, or edema. NEUROLOGICAL: Awake and alert. Oriented to time, place, person. No focal neuro deficit. Moves all extremities. Normal speech. Results Procedures completed during hospitalization: Status post paracentesis 02/12/18 Labs on day of discharge: Labs from last 24 hours 02/12/18 02/11/18 02/11/18 06:00 12:55 12:30 PT INR APTT Sodium 132 L 129 L Potassium 4.1 4.5 Chloride 96 L 93 L Carbon Dioxide 26.2 28.2 Anion Gap 10 8 BUN 8 10 Creatinine 0.26 L 0.41 L Estimated GFR Greater than 89 Greater than 89 Random Glucose 80 87 Calcium 8.5 8.7 Total Bilirubin 9.1 H 7.9 H AST 88 H 111 H ALT 81 H 99 H Alkaline Phosphatase 845 H 959 H Total Protein 5.3 L 5.8 L Albumin 2.1 L 2.3 L Lipase 96 Urine Color Bbobi Urine Clarity Hazy H Urine pH 5.0 Ur Specific [place] 1.025 Urine Protein 30 H Urine Glucose (UA) 50 Urine Ketones Trace H Urine Occult Blood Negative Urine Nitrate Negative Urine Bilirubin Moderate H Urine Ictotest Positive H Urine Urobilinogen 4 or greater Ur Leukocyte Esterase Negative Urine RBC 1 Urine WBC 5 Ur Squamous Epith Cells <1 Urine Mucus Many H Micro UA Comment Culture not ind Urine Culture Comments Culture not ind 02/11/18 12:30 PT 14.0 H INR 1.4 APTT 31.3 H Sodium Potassium Chloride Carbon Dioxide Anion Gap BUN Creatinine Estimated GFR Random Glucose Calcium Total Bilirubin AST ALT Alkaline Phosphatase Total Protein Albumin Lipase Urine Color Urine Clarity Urine pH Ur Specific [place] Urine Protein Urine Glucose (UA) Urine Ketones Urine Occult Blood Urine Nitrate Urine Bilirubin Urine Ictotest Urine Urobilinogen Ur Leukocyte Esterase Urine RBC Urine WBC Ur Squamous Epith Cells Urine Mucus Micro UA Comment Urine Culture Comments Discharge Plan - Discharge Disposition Patient Disposition: 01 Discharge Home - Discharge Condition Condition: Good - Discharge Order Discharge Orders: Discharge Order (Routine); Ordered 02/12/18 Ordered By: Bennie Ramires - Discharge Details Anticipated Discharge Date: 02/16/18 - Physicians Team Primary Care Provider: UNKNOWN, Attending Provider: Sofia Joseph
--- NOTE | 2018-02-12 14:42 | US ---
EXAM DATE: 02/12/2018 9:49 AM EDT AGE/SEX: 72 years / Female INDICATIONS: Ascites. CLINICAL DATA: This is the patient's initial encounter. Patient reports that signs and symptoms have been present for 1 month and indicates a pain score of 5/10. MEDICAL/SURGICAL HISTORY: . Pancreatic cancer. Appendectomy. Port placement. COMPARISON: POI, CT ABDOMEN AND PELVIS W/ CONTRAST, 02/07/2018. . FLUID: Total volume of 3,000 cc of clear, yellow fluid was removed. Fluid was discarded. Paracentesis was th erapeutic only. . . TECHNIQUE: Ultrasound guidance for abdominal paracentesis. Paracentesis. The risks, benefits, and alternatives to ultrasound guided paracentesis were explained to the patient in detail including the risk of bleeding and infection. Written and verbal informed consent was obt ained. FINDINGS: With the patient on the ultrasound table, ultrasound imaging was used to select the most appropriate approach for paracentesis. Overlying skin was prepped and draped in the usual sterile fashion and wi th a local anesthetic, a dermatotomy was made with an 11 blade scalpel. A 6 Sami Saw-M-xwwamfor ca theter was introduced into the peritoneal cavity and fluid was collected. Post procedure scanning reveals no hematoma or other complication. The patient tolerated the procedu re well and left the ultrasound suite in stable condition. CONCLUSION: 1. Successful paracentesis Electronically signed by: Harvey Wood MD 02/12/2018 2:41 PM EDT
== END 2018-02-12 14:00 | disposition home or self-care (01) ==
LOC: NEPHCDU 10:54 → NEPC 10:54 → INTOOBSV 14:59 → NEDA 14:59 → NEPHCDU 16:31
PROVIDERS: ADMIT Hospitalist; ATTEND Hospitalist

== ENCOUNTER 2018-02-19 16:25 | Inpatient (IN) ==
[2018-02-19] MEDS ORDERED: HYDROmorphone PF Inj 1 MG/ML Ampul IV.PUSH ONE (17:48)
[2018-02-19] MEDS: Sod Chloride 0.9% Inj 1,000 ML IV.CONT SCH (18:12)
--- NOTE | 2018-02-19 18:12 | ED ---
HPI General Chief Complaint: Abdominal Pain Stated Complaint: abd pain Time Seen by Provider: 02/19/18 17:42 Source: patient and family Mode of arrival: ambulatory Limitations: physical limitation History of Present Illness HPI narrative: 72-year-old female complains of abdominal pain, nausea vomiting. Patient has history of metastatic pancreatic cancer. Patient has been seen by Dr. Olivera, oncologist. Patient just finished the last cycle of chemotherapy last month. Patient states that she has increasing weakness and abdominal pain since then. Patient states that the pain is worse for the past several days. Patient was seen in emergency room 2 days ago and given fentanyl patch. Patient states that she has severe abdominal pain despite the fentanyl patch. Patient was seen by Dr. Jennings today in the office and advised to go to ED for evaluation. Patient denies any fever chills. Patient states that the abdominal pain is severe pain cramping pain sharp pain diffuse over the abdomen. Patient denies any pain radiation. On a scale of 1-10 the pain is a 10. Patient has history of osteoarthritis, hypertension, DVT PE in 2018. Patient is on Eliquis and oxycodone and amlodipine. MD complaint: abdominal pain Onset (ago): week(s) Pain Consistency: constant Location: diffuse Severity: severe Severity scale (1-10): 10 Quality: cramping and sharp Radiation: none Migration to: no migration Relieving factors: nothing Exacerbating factors: nothing Associated symptoms: nausea and vomiting Treatments prior to arrival: prescription analgesics Related Data Home Medications Medication Instructions Recorded Confirmed oxycodone 5 mg PO Q4-6H PRN 02/11/18 02/19/18 Previous Rx's Medication Instructions Recorded Eliquis 5 mg PO BID #0 02/12/18 Allergies Allergy/AdvReac Type Severity Reaction Status Date / Time ciprofloxacin Allergy Severe Anaphylaxis Verified 02/11/18 11:38 cefaclor Allergy Intermediate hives Verified 02/11/18 11:38 cefprozil Allergy Intermediate hives Verified 02/11/18 11:38 estrogens, conjugated Allergy Intermediate hives Verified 02/11/18 11:38 Influenza Virus Vaccines Allergy Intermediate "was in Verified 02/11/18 11:38 bed sick for 2 weeks after receiving it" latex Allergy Intermediate blisters Verified 02/11/18 11:38 Latex, Natural Rubber Allergy Intermediate blisters Verified 02/11/18 11:38 nitrofurantoin Allergy Intermediate hives Verified 02/11/18 11:38 pecan nut Allergy Intermediate Anaphylaxis Verified 02/11/18 11:38 propoxyphene Allergy Intermediate hives Verified 02/11/18 11:38 terfenadine Allergy Intermediate hives Verified 02/11/18 11:38 mold Allergy Unknown Congestion Verified 02/11/18 11:38 pollen extracts Allergy Unknown Congestion Verified 02/11/18 11:38 Cladosporium Herbarum Allergy Intermediate hives Uncoded 02/11/18 11:38 [place] Dust Allergy Intermediate hives Uncoded 02/11/18 11:38 stephylium Allergy Intermediate it is a Uncoded 02/11/18 11:38 mold and causes hives bermuda grass Allergy Unknown Congestion Uncoded 02/11/18 11:38 calamari Allergy Unknown Congestion Uncoded 02/11/18 11:38 dust mites Allergy Unknown Congestion Uncoded 02/11/18 11:38 pepper tree Allergy Unknown Congestion Uncoded 02/11/18 11:38 pet dander Allergy Unknown Congestion Uncoded 02/11/18 11:38 melva Allergy Unknown Congestion Uncoded 02/11/18 11:38 Review of Systems Except as stated in HPI: all other systems reviewed are negative PMFSH Medical History Medical History Hypertension (Acute) Pulmonary embolism (Acute) Pancreas cancer (Acute) Port-A-Cath in place (Acute) Surgical History Surgical History Status post chemotherapy (Acute) Hx of appendectomy (Acute) Family History Family History Father Prostate cancer Mother Thyroid cancer Social History Social History Substance History: No History of Abuse Second Hand Smoke Exposure: No Smoking Status: Never smoker Tobacco Type: Cigarettes How Often Do You Have a Drink Containing Alcohol: Never Hx Recent Travel: No Recent Travel in [facility] within the Last 8 Weeks: No Recent Out of Country Travel within the Last 8 Weeks: No Immunization History Tetanus Immunization: Unsure Hx Influenza Vaccine This Season: No Exam Narrative Exam Narrative: GENERAL: Well-nourished, well-developed patient. SKIN: Focused skin assessment warm/dry. Jaundice HEAD: Normocephalic. EYES: Bilateral scleral icterus. No injection or drainage. NECK: Supple, trachea midline. No JVD or lymphadenopathy. CARDIOVASCULAR: Regular rate and rhythm without murmurs, gallops, or rubs. RESPIRATORY: Breath sounds equal bilaterally. No accessory muscle use. GASTROINTESTINAL: Abdomen [id number] distention. Diffuse tenderness over the abdomen. No rebound tenderness. MUSCULOSKELETAL: No cyanosis, or edema. BACK: Nontender without obvious deformity. No CVA tenderness. Course Initial Documented Vital Signs Temperature 97.2 F L 02/19/18 16:54 Pulse Rate 112 H 02/19/18 16:54 Respiratory Rate 20 02/19/18 16:54 Blood Pressure 114/72 02/19/18 16:54 Pulse Oximetry 98 02/19/18 16:54 Last Documented Vital Signs Temperature 97.2 F L 02/22/18 08:00 Pulse Rate 110 H 02/22/18 10:20 Respiratory Rate 6 L 02/22/18 08:00 Blood Pressure 104/64 02/22/18 08:00 Pulse Oximetry 100 02/22/18 08:00 Medical Decision Making MDM Narrative Medical decision making narrative: 72-year-old female with severe abdominal pain and nausea vomiting. History of metastatic pancreatic cancer. Normal saline solution 1 25 cc an hour. Dilaudid 1 mg IV. Zofran 4 mg ODT. Lab Data Result diagrams: 02/22/18 04:30 02/22/18 04:30 Lab Results 02/19/18 02/19/18 02/19/18 Range/Units 18:00 18:00 18:00 WBC 39.9 H (4.0-11.0) th/mm3 RBC 3.67 L (4.00-5.30) mil/mm3 Hgb 10.7 L (11.6-15.3) gm/dL Hct 32.1 L (35.0-46.0) % MCV 87.5 (80.0-100.0) fL MCH 29.0 (27.0-34.0) pg MCHC 33.2 (32.0-36.0) % RDW 17.4 H (11.6-17.2) % Plt Count 500 H (150-450) th/mm3 MPV 8.2 (7.0-11.0) fL Prelim Diff (Auto) Slide review pending Neut % (Auto) 82.1 H (16.0-70.0) % Lymph % (Auto) 10.9 (9.0-44.0) % [place] % (Auto) 6.9 (0.0-8.0) % Eos % (Auto) 0.0 (0.0-4.0) % Baso % (Auto) 0.1 (0.0-2.0) % Neut # (Auto) 32.7 H (1.8-7.7) th/mm3 Lymph # (Auto) 4.3 (1.0-4.8) th/mm3 [place] # (Auto) 2.8 H (0.0-0.9) th/mm3 Eos # (Auto) 0.0 (0.0-0.4) th/mm3 Baso # (Auto) 0.0 (0.0-0.2) th/mm3 WBC Differential Manual diff final Seg Neuts % (Manual) 87 H (16-70) % Band Neuts % (Manual) 3 (0-6) % Lymphocytes % (Manual) 2 L (9-44) % Monocytes % (Manual) 7 (0-8) % Myelocytes % (Man) 1 H (0-0) % Abs Neuts (Manual) 36.3 H (1.8-7.7) th/mm3 Differential Comment . Toxic Granulation (None) Platelet Estimate High H (Normal) Platelet Morphology Normal (Normal) Polychromasia (0.0-1.9) % Target Cells 1+ H (None) PT 16.5 H (9.8-11.6) sec INR 1.6 Ratio APTT 31.8 H (24.3-30.1) sec Sodium 118 L* (136-145) meq/L Potassium 6.1 H (3.5-5.1) meq/L Chloride 81 L (98-107) meq/L Carbon Dioxide 23.9 (21.0-32.0) meq/L Anion Gap 13 (5-15) meq/L BUN 38 H (7-18) mg/dL Creatinine 0.94 (0.50-1.00) mg/dL Estimated GFR 59 L (>89) mL/min Random Glucose 88 (74-106) mg/dL Calcium 8.9 (8.5-10.1) mg/dL Total Bilirubin 19.3 H (0.2-1.0) mg/dL AST 222 H (15-37) U/L ALT 119 H (10-53) U/L Alkaline Phosphatase 1189 H (45-117) U/L Total Protein 5.4 L (6.4-8.2) g/dL Albumin 1.7 L (3.4-5.0) g/dL Lipase 195 (73-393) U/L Urine Color (Yellw/Straw) Urine Clarity (Clear) Urine pH (5.0-8.5) Ur Specific [place] (1.002-1.035) Urine Protein (Neg-Trace) mg/dL Urine Glucose (UA) (Negative) mg/dL Urine Ketones (Negative) mg/dL Urine Occult Blood (Negative) Urine Nitrate (Negative) Urine Bilirubin (Negative) Urine Ictotest (Negative) Urine Urobilinogen (Less than 2) mg/dL Ur Leukocyte Esterase (Negative) Urine RBC (0-3) /hpf Urine WBC (0-5) /hpf Ur Squamous Epith Cells (0-5) /hpf Urine Bacteria (None) /hpf Hyaline Casts (0-3) /lpf WBC Casts (None) /lpf Urine Mucus (Occasional) /lpf Micro UA Comment Urine Culture Comments Peritoneal RBC (0-0) /mm3 Periton Nuc Cells (0-10) /mm3 Periton Neutrophils % Periton Lymphocytes % Peritoneal Monocytes % Periton Mesothelial % Periton Histiocytes % Peritoneal Fld Comment Peritoneal Tot Protein gm/dL Peritoneal Albumin g/dL Peritoneal LDH U/L Peritoneal Glucose mg/dL Peritoneal Amylase U/L 02/19/18 02/20/18 02/20/18 Range/Units 21:00 05:00 05:00 WBC 30.1 H (4.0-11.0) th/mm3 RBC 3.37 L (4.00-5.30) mil/mm3 Hgb 9.5 L (11.6-15.3) gm/dL Hct 29.3 L (35.0-46.0) % MCV 87.1 (80.0-100.0) fL MCH 28.3 (27.0-34.0) pg MCHC 32.5 (32.0-36.0) % RDW 17.5 H (11.6-17.2) % Plt Count 444 (150-450) th/mm3 MPV 7.2 (7.0-11.0) fL Prelim Diff (Auto) Slide review pending Neut % (Auto) (16.0-70.0) % Lymph % (Auto) (9.0-44.0) % [place] % (Auto) (0.0-8.0) % Eos % (Auto) (0.0-4.0) % Baso % (Auto) (0.0-2.0) % Neut # (Auto) (1.8-7.7) th/mm3 Lymph # (Auto) (1.0-4.8) th/mm3 [place] # (Auto) (0.0-0.9) th/mm3 Eos # (Auto) (0.0-0.4) th/mm3 Baso # (Auto) (0.0-0.2) th/mm3 WBC Differential Manual diff final Seg Neuts % (Manual) 90 H (16-70) % Band Neuts % (Manual) 1 (0-6) % Lymphocytes % (Manual) 3 L (9-44) % Monocytes % (Manual) 6 (0-8) % Myelocytes % (Man) (0-0) % Abs Neuts (Manual) 27.4 H (1.8-7.7) th/mm3 Differential Comment . Toxic Granulation (None) Platelet Estimate Normal (Normal) Platelet Morphology Normal (Normal) Polychromasia (0.0-1.9) % Target Cells 1+ H (None) PT (9.8-11.6) sec INR Ratio APTT (24.3-30.1) sec Sodium 122 L* (136-145) meq/L Potassium 5.2 H D (3.5-5.1) meq/L Chloride 87 L (98-107) meq/L Carbon Dioxide 25.1 (21.0-32.0) meq/L Anion Gap 10 (5-15) meq/L BUN 48 H (7-18) mg/dL Creatinine 0.95 (0.50-1.00) mg/dL Estimated GFR 58 L (>89) mL/min Random Glucose 89 (74-106) mg/dL Calcium 8.3 L (8.5-10.1) mg/dL Total Bilirubin (0.2-1.0) mg/dL AST (15-37) U/L ALT (10-53) U/L Alkaline Phosphatase (45-117) U/L Total Protein (6.4-8.2) g/dL Albumin (3.4-5.0) g/dL Lipase (73-393) U/L Urine Color Bobbi (Yellw/Straw) Urine Clarity Cloudy H (Clear) Urine pH 5.0 (5.0-8.5) Ur Specific [place] 1.018 (1.002-1.035) Urine Protein Negative (Neg-Trace) mg/dL Urine Glucose (UA) 50 (Negative) mg/dL Urine Ketones Negative (Negative) mg/dL Urine Occult Blood Negative (Negative) Urine Nitrate Negative (Negative) Urine Bilirubin Moderate H (Negative) Urine Ictotest Positive H (Negative) Urine Urobilinogen 4 or greater (Less than 2) mg/dL Ur Leukocyte Esterase Negative (Negative) Urine RBC 1 (0-3) /hpf Urine WBC 7 H (0-5) /hpf Ur Squamous Epith Cells 6 (0-5) /hpf Urine Bacteria Occasional H (None) /hpf Hyaline Casts 3 (0-3) /lpf WBC Casts 15 (None) /lpf Urine Mucus Moderate H (Occasional) /lpf Micro UA Comment Culture not ind Urine Culture Comments Culture not ind Peritoneal RBC (0-0) /mm3 Periton Nuc Cells (0-10) /mm3 Periton Neutrophils % Periton Lymphocytes % Peritoneal Monocytes % Periton Mesothelial % Periton Histiocytes % Peritoneal Fld Comment Peritoneal Tot Protein gm/dL Peritoneal Albumin g/dL Peritoneal LDH U/L Peritoneal Glucose mg/dL Peritoneal Amylase U/L 02/20/18 02/20/18 02/21/18 Range/Units 09:56 09:56 05:30 WBC 37.0 H (4.0-11.0) th/mm3 RBC 3.19 L (4.00-5.30) mil/mm3 Hgb 9.2 L (11.6-15.3) gm/dL Hct 28.0 L (35.0-46.0) % MCV 88.0 (80.0-100.0) fL MCH 28.8 (27.0-34.0) pg MCHC 32.7 (32.0-36.0) % RDW 17.6 H (11.6-17.2) % Plt Count 428 (150-450) th/mm3 MPV 7.4 (7.0-11.0) fL Prelim Diff (Auto) Slide review pending Neut % (Auto) 86.6 H (16.0-70.0) % Lymph % (Auto) 5.0 L (9.0-44.0) % [place] % (Auto) 8.1 H (0.0-8.0) % Eos % (Auto) 0.1 (0.0-4.0) % Baso % (Auto) 0.2 (0.0-2.0) % Neut # (Auto) 32.0 H (1.8-7.7) th/mm3 Lymph # (Auto) 1.8 (1.0-4.8) th/mm3 [place] # (Auto) 3.0 H (0.0-0.9) th/mm3 Eos # (Auto) 0.0 (0.0-0.4) th/mm3 Baso # (Auto) 0.1 (0.0-0.2) th/mm3 WBC Differential Manual diff final Seg Neuts % (Manual) 76 H (16-70) % Band Neuts % (Manual) 8 H (0-6) % Lymphocytes % (Manual) 6 L (9-44) % Monocytes % (Manual) 10 H (0-8) % Myelocytes % (Man) (0-0) % Abs Neuts (Manual) 31.1 H (1.8-7.7) th/mm3 Differential Comment . Toxic Granulation 1+ H (None) Platelet Estimate Normal (Normal) Platelet Morphology Normal (Normal) Polychromasia 2.9 H (0.0-1.9) % Target Cells 1+ H (None) PT (9.8-11.6) sec INR Ratio APTT (24.3-30.1) sec Sodium (136-145) meq/L Potassium (3.5-5.1) meq/L Chloride (98-107) meq/L Carbon Dioxide (21.0-32.0) meq/L Anion Gap (5-15) meq/L BUN (7-18) mg/dL Creatinine (0.50-1.00) mg/dL Estimated GFR (>89) mL/min Random Glucose (74-106) mg/dL Calcium (8.5-10.1) mg/dL Total Bilirubin (0.2-1.0) mg/dL AST (15-37) U/L ALT (10-53) U/L Alkaline Phosphatase (45-117) U/L Total Protein (6.4-8.2) g/dL Albumin (3.4-5.0) g/dL Lipase (73-393) U/L Urine Color (Yellw/Straw) Urine Clarity (Clear) Urine pH (5.0-8.5) Ur Specific [place] (1.002-1.035) Urine Protein (Neg-Trace) mg/dL Urine Glucose (UA) (Negative) mg/dL Urine Ketones (Negative) mg/dL Urine Occult Blood (Negative) Urine Nitrate (Negative) Urine Bilirubin (Negative) Urine Ictotest (Negative) Urine Urobilinogen (Less than 2) mg/dL Ur Leukocyte Esterase (Negative) Urine RBC (0-3) /hpf Urine WBC (0-5) /hpf Ur Squamous Epith Cells (0-5) /hpf Urine Bacteria (None) /hpf Hyaline Casts (0-3) /lpf WBC Casts (None) /lpf Urine Mucus (Occasional) /lpf Micro UA Comment Urine Culture Comments Peritoneal RBC 1896 H (0-0) /mm3 Periton Nuc Cells 918 H (0-10) /mm3 Periton Neutrophils 19 % Periton Lymphocytes 16 % Peritoneal Monocytes 3 % Periton Mesothelial 3 % Periton Histiocytes 59 % Peritoneal Fld Comment Peritoneal Tot Protein 2.2 gm/dL Peritoneal Albumin 1.1 g/dL Peritoneal LDH 670 U/L Peritoneal Glucose 62 mg/dL Peritoneal Amylase 158 U/L 02/21/18 02/22/18 02/22/18 Range/Units 05:30 04:30 04:30 WBC 35.1 H (4.0-11.0) th/mm3 RBC 3.13 L (4.00-5.30) mil/mm3 Hgb 8.8 L (11.6-15.3) gm/dL Hct 28.0 L (35.0-46.0) % MCV 89.6 (80.0-100.0) fL MCH 28.2 (27.0-34.0) pg MCHC 31.5 L (32.0-36.0) % RDW 18.1 H (11.6-17.2) % Plt Count 483 H (150-450) th/mm3 MPV 7.8 (7.0-11.0) fL Prelim Diff (Auto) Manual diff required Neut % (Auto) (16.0-70.0) % Lymph % (Auto) (9.0-44.0) % [place] % (Auto) (0.0-8.0) % Eos % (Auto) (0.0-4.0) % Baso % (Auto) (0.0-2.0) % Neut # (Auto) (1.8-7.7) th/mm3 Lymph # (Auto) (1.0-4.8) th/mm3 [place] # (Auto) (0.0-0.9) th/mm3 Eos # (Auto) (0.0-0.4) th/mm3 Baso # (Auto) (0.0-0.2) th/mm3 WBC Differential Manual diff final Seg Neuts % (Manual) 87 H (16-70) % Band Neuts % (Manual) 7 H (0-6) % Lymphocytes % (Manual) 1 L (9-44) % Monocytes % (Manual) 5 (0-8) % Myelocytes % (Man) (0-0) % Abs Neuts (Manual) 33.0 H (1.8-7.7) th/mm3 Differential Comment . Toxic Granulation (None) Platelet Estimate High H (Normal) Platelet Morphology Clumped H (Normal) Polychromasia (0.0-1.9) % Target Cells 1+ H (None) PT (9.8-11.6) sec INR Ratio APTT (24.3-30.1) sec Sodium 123 L* 126 L (136-145) meq/L Potassium 4.9 5.3 H (3.5-5.1) meq/L Chloride 90 L 93 L (98-107) meq/L Carbon Dioxide 20.4 L 19.8 L (21.0-32.0) meq/L Anion Gap 13 13 (5-15) meq/L BUN 55 H 67 H (7-18) mg/dL Creatinine 1.17 H 1.77 H (0.50-1.00) mg/dL Estimated GFR 45 L 28 L (>89) mL/min Random Glucose 83 90 (74-106) mg/dL Calcium 8.2 L 7.8 L (8.5-10.1) mg/dL Total Bilirubin 15.3 H (0.2-1.0) mg/dL AST 362 H (15-37) U/L ALT 174 H (10-53) U/L Alkaline Phosphatase 1208 H (45-117) U/L Total Protein 4.1 L D (6.4-8.2) g/dL Albumin 1.2 L (3.4-5.0) g/dL Lipase (73-393) U/L Urine Color (Yellw/Straw) Urine Clarity (Clear) Urine pH (5.0-8.5) Ur Specific [place] (1.002-1.035) Urine Protein (Neg-Trace) mg/dL Urine Glucose (UA) (Negative) mg/dL Urine Ketones (Negative) mg/dL Urine Occult Blood (Negative) Urine Nitrate (Negative) Urine Bilirubin (Negative) Urine Ictotest (Negative) Urine Urobilinogen (Less than 2) mg/dL Ur Leukocyte Esterase (Negative) Urine RBC (0-3) /hpf Urine WBC (0-5) /hpf Ur Squamous Epith Cells (0-5) /hpf Urine Bacteria (None) /hpf Hyaline Casts (0-3) /lpf WBC Casts (None) /lpf Urine Mucus (Occasional) /lpf Micro UA Comment Urine Culture Comments Peritoneal RBC (0-0) /mm3 Periton Nuc Cells (0-10) /mm3 Periton Neutrophils % Periton Lymphocytes % Peritoneal Monocytes % Periton Mesothelial % Periton Histiocytes % Peritoneal Fld Comment Peritoneal Tot Protein gm/dL Peritoneal Albumin g/dL Peritoneal LDH U/L Peritoneal Glucose mg/dL Peritoneal Amylase U/L Imaging Data Radiologist's impression: ITS Impressions Abdomen/Pelvis CT 02/19/18 17:50 CONCLUSION: 1. Vague pancreatic head mass and widespread metastatic lesions of the liver and accounting for differences between this study and the prior CT with contrast , I believe worse. 2. Moderate ascites, worse. Omental caking about the same. 3. Small bilateral effusions and left side predominant consolidation now seen of the visualized lung bases. Paracentesis Ultrasound 02/20/18 00:00 CONCLUSION: Uncomplicated ultrasound-guided paracentesis. Discharge Plan Discharge Disposition Patient Disposition: 30 Still Patient Discharge Details Diagnosis: Pneumonia, Ascites, Acute hyponatremia, Acute dehydration, Metastasis from pancreatic cancer Physicians Team ED Provider: Rufino Garcia Primary Care Provider: Roro Tate Attending Provider: Jimy Galvin Other Providers: Graham Mcpherson ; Urbano Olivera ; Drew Faith ; [employer] Discharge Interventions Interventions: ED Discharge Assessment Last Done: 02/19/18 22:18 Vital Signs Last Done: 02/19/18 19:00 Status ED Status: Left Department Discharge Information Discharge Date/Time: 02/19/18 22:22
[2018-02-19] MEDS ORDERED: HYDROmorphone PF Inj 2 MG/ML Vial IV.PUSH ONE (18:15)
--- NOTE | 2018-02-19 18:56 | CT ---
EXAM DATE: 02/19/2018 6:46 PM EDT AGE/SEX: 72 years / Female INDICATIONS: Abdomen pain. CLINICAL DATA: This is the patient's initial encounter. Patient reports that signs and symptoms have been present for 3 days and indicates a pain score of 10/10. MEDICAL/SURGICAL HISTORY: Carcinoma, pancreas. Deep venous thrombosis. None. RADIATION DOSE: 6.64 CTDI (mGy) COMPARISON: POI, CT ABDOMEN AND PELVIS W/ CONTRAST, 02/07/2018. . TECHNIQUE: Multiple contiguous axial images were obtained through the abdomen. Images were obtained using multiple row detector helical technique. Using automated exposure control and adjustment of the mA and/or kV according to patient size, radiation dose was kept as low as reasonably achievable to o btain optimal diagnostic quality images. DICOM format image data is available electronically for rev iew and comparison. FINDINGS: Numerous vague hypodensities are seen scattered throughout the liver measuring up to 4.4 cm in size a nd don't seem to be any substantially smaller than on the comparison contrast enhanced study. Dense m aterial again seen within the gallbladder. No ductal dilatation seen. There is vague fullness of the pancreatic head and some atrophy of the body and tail again noted. Omental caking and recanalized umb ilical vein again seen. I don't see a well-defined mass on these noncontrast images. Noncontrast appearance of the spleen, adrenal glands and kidneys within normal limits. There is moderate ascites, increased. Nothing organized or loculated. No obstruction or acute inflamm atory changes are seen of the gastrointestinal tract. Fluid-filled stomach and a moderate hiatal apolinar ia is present, also fluid-filled. Some of the ascites extends to the hiatal hernia. Patchy consolidation now seen of the visualized lung bases, mostly on the left. There are also small, bilateral pleural effusions. CONCLUSION: 1. Vague pancreatic head mass and widespread metastatic lesions of the liver and accounting for diff erences between this study and the prior CT with contrast, I believe worse. 2. Moderate ascites, worse. Omental caking about the same. 3. Small bilateral effusions and left side predominant consolidation now seen of the visualized lung bases. Electronically signed by: Etienne Lin MD 02/19/2018 6:55 PM EDT
[2018-02-19 19:04] LABS: Baso % (Auto) 0.1 % (0.0-2.0); Hematocrit 32.1 % (35.0-46.0); Hemoglobin 10.7 gm/dL (11.6-15.3); Lymph # (Auto) 4.3 th/mm3 (1.0-4.8); Lymph % (Auto) 10.9 % (9.0-44.0); Mean Corpuscular HGB Conc 33.2 % (32.0-36.0); Mean Corpuscular Volume 87.5 fL (80.0-100.0); Mean Platelet Volume 8.2 fL (7.0-11.0); Mono # (Auto) 2.8 th/mm3 (0.0-0.9); Mono % (Auto) 6.9 % (0.0-8.0); Neut # (Auto) 32.7 th/mm3 (1.8-7.7); Neut % (Auto) 82.1 % (16.0-70.0); Platelet Count 500 th/mm3 (150-450); Red Blood Count 3.67 mil/mm3 (4.00-5.30); Red Cell Distribution Width 17.4 % (11.6-17.2); White Blood Count 39.9 th/mm3 (4.0-11.0)
[2018-02-19 19:18] LABS: Activated Partial Thrombo Time 31.8 sec (24.3-30.1); INR 1.6 Ratio; Prothrombin Time 16.5 sec (9.8-11.6)
[2018-02-19 19:24] LABS: Albumin 1.7 g/dL (3.4-5.0); Anion Gap 13 meq/L (5-15); Aspartate Aminotransferase 222 U/L (15-37); Blood Urea Nitrogen 38 mg/dL (7-18); Calcium 8.9 mg/dL (8.5-10.1); Carbon Dioxide 23.9 meq/L (21.0-32.0); Chloride 81 meq/L (98-107); Glomerular Filtration Rate 59 mL/min (>89); Glucose,Random 88 mg/dL (74-106); Lipase 195 U/L (73-393)
[2018-02-19 19:27] LABS: Potassium 6.1 meq/L (3.5-5.1)
[2018-02-19 19:28] LABS: Sodium 118 meq/L (136-145)
[2018-02-19] MEDS ORDERED: Sod Chloride 0.9% Inj 1,000 ML IV.SIG ONE (19:38)
[2018-02-19] MEDS ORDERED: Azithromycin Inj 500 MG in Sodium Chlor 0.9% Inj 250 ML IV.SIG ONE (19:38)
[2018-02-19 19:41] LABS: Alanine Aminotransferase 119 U/L (10-53); Alkaline Phosphatase 1189 U/L (45-117); Total Protein 5.4 g/dL (6.4-8.2)
[2018-02-19 19:56] LABS: Lymphocytes 2 % (9-44); Monocytes 7 % (0-8); Myelocytes 1 % (0-0); Target Cells 1+
[2018-02-19 19:57] LABS: Platelet Morphology Normal (Normal)
[2018-02-19] MEDS ORDERED: Vancomycin Inj 1 GM/200 ML PIGGYBACK IV.SIG SCH (20:00)
[2018-02-19] MEDS ORDERED: Acetaminophen 325 MG Tablet PO PRN (21:27)
[2018-02-19] MEDS ORDERED: Bisacodyl 10 MG Supp RECTAL PRN (21:27)
[2018-02-19] MEDS ORDERED: Temazepam 15 MG Capsule PO PRN (21:27)
[2018-02-19 21:42] LABS: Bacteria,Urine Occasional /hpf; Bilirubin,Urine Moderate (Negative); Clarity,Urine Cloudy (Clear); Color,Urine Amber (Yellw/Straw); Glucose,Urine (UA) 50 mg/dL (Negative); Hyaline Casts,Urine 3 /lpf (0-3); Leukocyte Esterase,Urine Negative (Negative); Mucus,Urine Moderate /lpf (Occasional); Nitrite,Urine Negative (Negative); Specific Gravity,Urine 1.018 (1.002-1.035); Squamous Epithelial Cell,Urine 6 /hpf (0-5); Urobilinogen,Urine 4 or Greater mg/dL (Less than 2)
[2018-02-19 21:47] LABS: Ictotest,Urine Positive (Negative)
[2018-02-19] MEDS: HYDROmorphone PF Inj 2 MG/ML Vial IV.PUSH PRN (21:57)
[2018-02-20] MEDS: Aztreonam Inj 2 GM in Sodium Chloride 0.9% Inj 100 ML IV.SIG SCH ×4 (01:02→23:22)
[2018-02-20] MEDS: HYDROmorphone PF Inj 2 MG/ML Vial IV.PUSH PRN ×6 (02:15→23:21)
--- NOTE | 2018-02-20 04:57 | P.HP ---
History of Present Illness Service: [facility] Primary Care Physician: Roro Tate Chief Complaint: Abd pain History of Present Illness: 72-year-old female with a past medical history significant for metastatic pancreatic cancer presents to the emergency department for evaluation of abdominal pain, nausea and vomiting. The patient was seen by her oncologist, Dr. Olivera, who recommended further evaluation in the emergency department. She just finished her last cycle of chemotherapy approximately 1 month ago. She states she has had increasing weakness and abdominal pain since that time. She states that the pain has been worsening for the past several days. She was seen in the emergency department 2 days ago and given a fentanyl patch. She states that her symptoms persisted despite this treatment. Patient was recently admitted on 02/11/18 for paracentesis secondary to large volume ascites. The patient endorses shortness of breath and a nonproductive cough. She continues to complain of abdominal pain despite IV pain medication. She denies any chest pain. No lateralizing signs/symptoms. Positive fatigue/weakness. No fever/chills. Inpatient Certification: I certify that the inpatient services were ordered in accordance with Medicare regulations governing the order. This includes certification that hospital inpatient services are reasonable and necessary and in the case of services not specified as inpatient-only under 42 CFR 419.22(n), that they are appropriately provided as inpatient services in accordance to with the 2-midnight benchmark under 43 CFR 412.3(e) Estimated Total Length of Stay (Days): 2 Plans for Post Hospital Care: Not yet determined Review of Systems All other systems reviewed negative except as stated in [facility] - History History Provided By: Patient, Family Member - Medical History Medical History: Medical History (Last Updated 02/19/18 @ 22:17 by Wendy Hernandez) Hypertension Pulmonary embolism Pancreas cancer Port-A-Cath in place - Surgical History Surgical History: Surgical History (Last Updated 02/19/18 @ 22:11 by Wendy Hernandez) Status post chemotherapy Hx of appendectomy - Tobacco History Second Hand Smoke Exposure: No Tobacco Use In Past 30 Days: No Smoking Status: Never smoker Tobacco Type: Cigarettes - Alcohol History How Often Do You Have a Drink Containing Alcohol: Never - Substance Use History Substance History: No History of Abuse - Travel History Recent Travel in the [place] Within the Last 8 Weeks: No Recent Travel Out of the Country Within the Last 8 Weeks: No - Immunization History Tetanus Immunization: Unsure Hx Influenza Vaccine This Season: No Medications and Allergies Active Medications: Active Medications Acetaminophen (Tylenol) 650 mg PO Q4H PRN PRN Reason: Temp > 100.4 Al Hydroxide/Mg Hydroxide (Milk Of Magnesia Liq) 30 ml PO Q12H PRN PRN Reason: Mild Constipation Bisacodyl (Dulcolax Supp) 10 mg RECTAL DAILY PRN PRN Reason: SEVERE CONSITIPATION Hydromorphone HCl (Dilaudid Pf Inj) 1 mg IV.PUSH Q3H PRN PRN Reason: pain 6-10 Sodium Chloride (Ns Inj) 1,000 mls @ 50 mls/hr IV.CONT .Q20H [facility] Last Admin: 02/19/18 18:12 Dose: 125 mls/hr Vancomycin/Sodium Chloride (Vancomycin Inj) 1 gm in 200 mls @ 200 mls/hr IV.SIG BEARING MAKER [facility] Azithromycin 500 mg/ Sodium (Chloride) 250 mls @ 250 mls/hr IV.SIG Q24H NELLIE Aztreonam 2 gm/ Sodium (Chloride) 100 mls @ 200 mls/hr IV.SIG Q8H [facility] Last Infusion: 02/20/18 02:14 Dose: Infused Lactulose (Lactulose Liq) 30 ml PO DAILY PRN PRN Reason: SEVERE CONSITIPATION Ondansetron HCl (Zofran Odt) 4 mg PO Q6H PRN PRN Reason: NAUSEA OR VOMITING Senna/Docusate Sodium (Marcela-Colace) 1 tab PO BID [facility] Sennosides (Senokot) 17.2 mg PO Q12H PRN PRN Reason: Moderate Constipation Sodium Chloride (Ns Flush) 2 ml IV.FLUSH PRN PRN PRN Reason: FLUSH AFTER USING IV ACCESS Sodium Chloride (Ns Flush) 2 ml IV.FLUSH BID NELLIE Sodium Chloride (Ns Flush) 2 ml IV.FLUSH PRN PRN PRN Reason: FLUSH AFTER USING IV ACCESS Temazepam (Restoril) 15 mg PO HS PRN PRN Reason: INSOMNIA Allergies Allergy/AdvReac Type Severity Reaction Status Date / Time ciprofloxacin Allergy Severe Anaphylaxis Verified 02/11/18 11:38 cefaclor Allergy Intermediate hives Verified 02/11/18 11:38 cefprozil Allergy Intermediate hives Verified 02/11/18 11:38 estrogens, conjugated Allergy Intermediate hives Verified 02/11/18 11:38 Influenza Virus Vaccines Allergy Intermediate "was in Verified 02/11/18 11:38 bed sick for 2 weeks after receiving it" latex Allergy Intermediate blisters Verified 02/11/18 11:38 Latex, Natural Rubber Allergy Intermediate blisters Verified 02/11/18 11:38 nitrofurantoin Allergy Intermediate hives Verified 02/11/18 11:38 pecan nut Allergy Intermediate Anaphylaxis Verified 02/11/18 11:38 propoxyphene Allergy Intermediate hives Verified 02/11/18 11:38 terfenadine Allergy Intermediate hives Verified 02/11/18 11:38 mold Allergy Unknown Congestion Verified 02/11/18 11:38 pollen extracts Allergy Unknown Congestion Verified 02/11/18 11:38 Cladosporium Herbarum Allergy Intermediate hives Uncoded 02/11/18 11:38 [place] Dust Allergy Intermediate hives Uncoded 02/11/18 11:38 stephylium Allergy Intermediate it is a Uncoded 02/11/18 11:38 mold and causes hives bermuda grass Allergy Unknown Congestion Uncoded 02/11/18 11:38 calamari Allergy Unknown Congestion Uncoded 02/11/18 11:38 dust mites Allergy Unknown Congestion Uncoded 02/11/18 11:38 pepper tree Allergy Unknown Congestion Uncoded 02/11/18 11:38 pet dander Allergy Unknown Congestion Uncoded 02/11/18 11:38 melva Allergy Unknown Congestion Uncoded 02/11/18 11:38 Home Medications Medication Instructions Recorded Confirmed Type oxycodone 5 mg PO Q4-6H PRN 02/11/18 02/19/18 History Exam Vital signs: Vital Signs 02/19/18 16:54 02/19/18 17:18 02/19/18 17:59 Temperature 97.2 F L Pulse Rate 112 H 99 H Respiratory Rate 20 16 Blood Pressure 114/72 120/71 Pulse Oximetry 98 92 L 95 02/19/18 18:34 02/19/18 19:00 02/19/18 21:27 Temperature 98.2 F Pulse Rate 97 H 96 H Respiratory Rate 16 16 Blood Pressure 133/73 150/78 H Pulse Oximetry 96 98 99 02/19/18 22:23 02/20/18 00:00 Temperature Pulse Rate 100 H 98 H Respiratory Rate Blood Pressure Pulse Oximetry Intake & Output 02/19/18 02/19/18 02/20/18 06:59 18:59 06:59 Intake Total 1350 / 1350 Balance 1350 / 1350 Weight 56.699 kg 59.9 kg Intake: IV 1350 / 1350 Azithromycin Inj 500 MG In NS 250 / 250 Inj 250 ML @ 250 mls/hr IV.SIG ONCE ONE Rx#:[id number] Azactam Inj 2 GM In NS Inj 100 100 / 100 ML @ 200 mls/hr IV.SIG Q8H NELLIE Rx#:[id number] NS Inj 1,000 ML @ Wide Open IV. 1000 / 1000 SIG BOLUS ONE Rx#:[id number] Other: Date of Last Bowel Movement 02/18/18 Narrative: Gen.: No acute distress Head: Normocephalic. Atraumatic. EENT: Pupils equal round and reactive to light. Nose without drainage. Airway intact. Throat without injection. Cardiovascular: Regular rate and rhythm. No murmurs, rubs or gallops. Respiratory: Lungs clear to auscultation bilaterally. No wheezes or rhonchi. Abdomen: Diffusely tender to palpation. Distended. Musculoskeletal: No gross deformities. No edema. Skin: No obvious rashes or erythema. Neuro: Sensory and motor grossly intact. Cranial nerves II through XII grossly intact. Psych: Appropriate mood and affect Results - Labs CBC & Chem 7: 02/19/18 18:00 02/19/18 18:00 Labs: Laboratory Results - last 24 hr 02/19/18 02/19/18 02/19/18 18:00 18:00 18:00 WBC 39.9 H RBC 3.67 L Hgb 10.7 L Hct 32.1 L MCV 87.5 MCH 29.0 MCHC 33.2 RDW 17.4 H Plt Count 500 H MPV 8.2 Prelim Diff (Auto) Slide review pending Neut % (Auto) 82.1 H Lymph % (Auto) 10.9 Dixon % (Auto) 6.9 Eos % (Auto) 0.0 Baso % (Auto) 0.1 Neut # (Auto) 32.7 H Lymph # (Auto) 4.3 Dixon # (Auto) 2.8 H Eos # (Auto) 0.0 Baso # (Auto) 0.0 WBC Differential Manual diff final Seg Neuts % (Manual) 87 H Band Neuts % (Manual) 3 Lymphocytes % (Manual) 2 L Monocytes % (Manual) 7 Myelocytes % (Man) 1 H Abs Neuts (Manual) 36.3 H Differential Comment . Platelet Estimate High H Platelet Morphology Normal Target Cells 1+ H PT 16.5 H INR 1.6 APTT 31.8 H Sodium 118 L* Potassium 6.1 H Chloride 81 L Carbon Dioxide 23.9 Anion Gap 13 BUN 38 H Creatinine 0.94 Estimated GFR 59 L Random Glucose 88 Calcium 8.9 Total Bilirubin 19.3 H AST 222 H ALT 119 H Alkaline Phosphatase 1189 H Total Protein 5.4 L Albumin 1.7 L Lipase 195 Urine Color Urine Clarity Urine pH Ur Specific Thompson Urine Protein Urine Glucose (UA) Urine Ketones Urine Occult Blood Urine Nitrate Urine Bilirubin Urine Ictotest Urine Urobilinogen Ur Leukocyte Esterase Urine RBC Urine WBC Ur Squamous Epith Cells Urine Bacteria Hyaline Casts WBC Casts Urine Mucus Micro UA Comment Urine Culture Comments 02/19/18 21:00 WBC RBC Hgb Hct MCV MCH MCHC RDW Plt Count MPV Prelim Diff (Auto) Neut % (Auto) Lymph % (Auto) Dixon % (Auto) Eos % (Auto) Baso % (Auto) Neut # (Auto) Lymph # (Auto) Dixon # (Auto) Eos # (Auto) Baso # (Auto) WBC Differential Seg Neuts % (Manual) Band Neuts % (Manual) Lymphocytes % (Manual) Monocytes % (Manual) Myelocytes % (Man) Abs Neuts (Manual) Differential Comment Platelet Estimate Platelet Morphology Target Cells PT INR APTT Sodium Potassium Chloride Carbon Dioxide Anion Gap BUN Creatinine Estimated GFR Random Glucose Calcium Total Bilirubin AST ALT Alkaline Phosphatase Total Protein Albumin Lipase Urine Color Bobbi Urine Clarity Cloudy H Urine pH 5.0 Ur Specific Thompson 1.018 Urine Protein Negative Urine Glucose (UA) 50 Urine Ketones Negative Urine Occult Blood Negative Urine Nitrate Negative Urine Bilirubin Moderate H Urine Ictotest Positive H Urine Urobilinogen 4 or greater Ur Leukocyte Esterase Negative Urine RBC 1 Urine WBC 7 H Ur Squamous Epith Cells 6 Urine Bacteria Occasional H Hyaline Casts 3 WBC Casts 15 Urine Mucus Moderate H Micro UA Comment Culture not ind Urine Culture Comments Culture not ind - Imaging Impressions Abdomen/Pelvis CT 02/19/18 17:50 CONCLUSION: 1. Vague pancreatic head mass and widespread metastatic lesions of the liver and accounting for differences between this study and the prior CT with contrast , I believe worse. 2. Moderate ascites, worse. Omental caking about the same. 3. Small bilateral effusions and left side predominant consolidation now seen of the visualized lung bases. Caprini VTE Risk Assessment Caprini VTE Risk Assessment: Moderate/High Risk (score >= 2) Caprini Risk Assessment Model: Point Value = 1 Point Value = 2 Point Value = 3 Point Value = 5 Age 41-60 Minor surgery BMI > 25 kg/m2 Swollen legs Varicose veins or History of unexplained or recurrent spontaneous Oral contraceptives or hormone replacement Sepsis (< 1 month) Serious lung disease, including pneumonia (< 1 month) Abnormal pulmonary function Acute myocardial infarction Congestive heart failure (< 1 month) History of inflammatory bowel disease Medical patient at bed rest Age 61-74 Arthroscopic surgery Major open surgery (> 45 min) Laparoscopic surgery (> 45 min) Malignancy Confined to bed (> 72 hours) Immobilizing plaster cast Central venous access Age >= 75 History of VTE Family history of VTE Factor V Leiden Prothrombin [id number] Lupus anticoagulant Anticardiolipin antibodies Elevated serum homocysteine Heparin-induced thrombocytopenia Other congenital or acquired thrombophilia Stroke (< 1 month) Elective arthroplasty Hip, pelvis, or leg fracture Acute spinal cord injury (< 1 month) Prophylaxis Regimen: Total Risk Factor Score Risk Level Prophylaxis Regimen 0-1 Low Early ambulation 2 Moderate Order ONE of the following: *Sequential Compression Device (SCD) *Heparin 5000 units SQ BID 3-4 Higher Order ONE of the following medications: *Heparin 5000 units SQ TID *Enoxaparin/Lovenox 40 mg SQ daily (WT < 150 kg, CrCl > 30 mL/min) *Enoxaparin/Lovenox 30 mg SQ daily (WT < 150 kg, CrCl > 10-29 mL/min) *Enoxaparin/Lovenox 30 mg SQ BID (WT < 150 kg, CrCl > 30 mL/min) AND/OR *Sequential Compression Device (SCD) 5 or more Highest Order ONE of the following medications: *Heparin 5000 units SQ TID (Preferred with Epidurals) *Enoxaparin/Lovenox 40 mg SQ daily (WT < 150 kg, CrCl > 30 mL/min) *Enoxaparin/Lovenox 30 mg SQ daily (WT < 150 kg, CrCl > 10-29 mL/min) *Enoxaparin/Lovenox 30 mg SQ BID (WT < 150 kg, CrCl > 30 mL/min) AND *Sequential Compression Device (SCD) Assessment and Plan - Plan Assessment/plan: 1. Metastatic pancreatic cancer/ascites/intractable abdominal pain Increase frequency of IV Dilaudid for improved pain relief Patient with worsening abdominal ascites Interventional radiology consulted for diagnostic/therapeutic paracentesis ( with leukocytosis and abdominal pain concern for SBP -aztreonam as patient with allergies to cephalosporins) Oncology consulted, appreciate assistance 2. Pneumonia Patient with leukocytosis of 39 CT of the abdomen/pelvis significant for left side predominant consolidation Aztreonam and azithromycin 3. History of DVT Patient on Eliquis for anticoagulation Holding for paracentesis 4. Hyponatremia Sodium 118 Fluid restriction Repeat BMP FEN N.p.o. Electrolytes: As above Holding pharmacologic anticoagulation for paracentesis
[2018-02-20 05:18] LABS: Hematocrit 29.3 % (35.0-46.0); Hemoglobin 9.5 gm/dL (11.6-15.3); Mean Corpuscular HGB Conc 32.5 % (32.0-36.0); Mean Corpuscular Hemoglobin 28.3 pg (27.0-34.0); Mean Corpuscular Volume 87.1 fL (80.0-100.0); Mean Platelet Volume 7.2 fL (7.0-11.0); Platelet Count 444 th/mm3 (150-450); Red Blood Count 3.37 mil/mm3 (4.00-5.30); Red Cell Distribution Width 17.5 % (11.6-17.2); White Blood Count 30.1 th/mm3 (4.0-11.0)
[2018-02-20 05:51] LABS: Calcium 8.3 mg/dL (8.5-10.1); Carbon Dioxide 25.1 meq/L (21.0-32.0); Potassium 5.2 meq/L (3.5-5.1)
[2018-02-20] MEDS: Sod Chloride 0.9% Inj 1,000 ML IV.CONT SCH ×3 (06:22→23:23)
[2018-02-20 07:32] LABS: Lymphocytes 3 % (9-44); Monocytes 6 % (0-8); Platelet Estimate Normal (Normal); Platelet Morphology Normal (Normal); Target Cells 1+
--- NOTE | 2018-02-20 09:14 | MB ---
cc: Urbano Olivera MD DATE: 02/20/2018 ATTENDING PHYSICIAN: Dr. Brownlee REASON FOR CONSULTATION: Oncology consulted to render opinion regarding patient with metastatic pancreatic cancer admitted with recurrent ascites and intractable abdominal pain. HISTORY OF PRESENT ILLNESS: The patient is a very pleasant 72-year-old female diagnosed with metastatic pancreatic cancer earlier this year. She had presented with obstructive jaundice and found to have a mass in the pancreatic neck, as well as multiple liver metastases. There is also donny hepatis lymphadenopathy. Tumor marker CA 19-9 was more than 84,000. Biopsy of the liver mass showed moderately differentiated adenocarcinoma with focal mucinous features compatible with pancreatic primary. She was started on Abraxane and gemcitabine 09/2017. She had a good response and the tumor marker trended down. Her pain also had resolved. However, in January, her tumor marker started trending up and she has increased abdominal discomfort. She went to [facility] for evaluation. She was told there was no clinical trial available. Unfortunately, the patient's disease progressed rapidly over the last 2-3 weeks. She came to the emergency room 02/12/2018 with abdominal pain and had a therapeutic paracentesis with removal of 3 liters of fluid. She felt better for a few days, but started having increased abdominal distention and discomfort again over the weekend. She came to the emergency room this past Sunday and was subsequently discharged home. When I saw her in clinic yesterday, the patient was in a lot of pain. Her abdomen was distended. She was also tachycardic. She is very jaundiced. She was sent to the emergency room and subsequently admitted. This morning, she is feeling a little bit more comfortable with the pain medication. She still has generalized fatigue. She has lost more weight. She has not been able to eat for about a week. She denies any fever or chills. Denies any chest pain. She has a mild cough and has dyspnea on exertion. She denies any nausea or vomiting. She has constipation, but no diarrhea. Denies any dysuria or hematuria, but the urine color is orangy. She denies any bone pain. Denies any headache, focal numbness or weakness. PAST MEDICAL HISTORY: 1. Metastatic pancreatic cancer. 2. Pulmonary embolism. 3. Hypertension. PAST SURGICAL HISTORY: 1. Arthroscopic left knee surgery. 2. Bladder suspension surgery. 3. Resection of multiple lipoma. 4. Port placement. FAMILY HISTORY: Mother had thyroid cancer. Father had prostate cancer. One brother has some sort of cancer. Another brother possibly had liver cancer. She has a daughter and son quite healthy. SOCIAL HISTORY: She denies tobacco use. She quit drinking. She lives with her . ALLERGIES: MULTIPLE ALLERGIES DOCUMENTED ON HER MEDICAL RECORD WERE REVIEWED. CURRENT MEDICATIONS: 1. Azithromycin. 2. Aztreonam. 3. Marcela-Colace. 4. Vancomycin. REVIEW OF SYSTEMS: CONSTITUTIONAL: As above. EYES: Negative. ENT: Negative. CARDIOVASCULAR: As above. RESPIRATORY: As above. GASTROINTESTINAL: As above. GENITOURINARY: As above. MUSCULOSKELETAL: As above. ENDOCRINE: Negative. HEMATOLOGY: Negative. DERMATOLOGY: As above. NEUROLOGIC: As above. PSYCHIATRIC: As above. PHYSICAL EXAMINATION: VITAL SIGNS: Temperature 97.7, blood pressure 121/44, O2 saturation 96%. GENERAL: She is alert, oriented x 3. She looks weak and tired. She looked very jaundiced. HEENT: Atraumatic, normocephalic. Alopecia. Positive scleral icterus. Oropharynx, dry mucosa. NECK: No thyromegaly. No palpable mass. LYMPHATIC: No palpable cervical, clavicular, axillary or inguinal lymph nodes. CARDIOVASCULAR: Regular S1, S2, tachycardic. LUNGS: Decreased breath sounds at the lung bases. ABDOMEN: Distended, diffuse tenderness. No rebound or rigidity. Positive bowel sounds. Liver masses palpable. EXTREMITY EXAM: No cyanosis or clubbing. No significant edema. No calf tenderness. SKIN: Jaundiced. NEUROLOGIC: Generalized weakness, otherwise, nonfocal. LABORATORY DATA: WBC 30.1, hemoglobin 9.5, platelet count 444, total bilirubin 19.3, AST 22, ALT 119. ASSESSMENT: 1. Metastatic pancreatic cancer. She presented earlier this year with multiple liver metastases and lymphadenopathy in the donny hepatis. She also has a mass in the pancreatic neck. CA 19-9 was more than 200,000. Biopsy of the liver mass showed poorly differentiated adenocarcinoma with focal mucinous feature consistent with pancreatic carcinoma. She started gemcitabine and Abraxane in September. She had a good response. Tumor marker trended down to 44,000. A CT scan in December showed the liver mass had decreased in size and the pancreatic mass and adenopathy had resolved. Unfortunately, after her fifth cycle of chemotherapy, she began to have abdominal discomfort again. Tumor marker trended back up to 82,000. She went to [facility], but was told there was no clinical trial available. Her disease; however, progressed rapidly and the last 2 weeks she developed recurrent ascites and increased abdominal pain. She went to the emergency room 02/12/2018 and had 3 liters of ascitic fluid removed. She went back to the emergency room again this past Sunday with abdominal pain and was subsequently discharged home. When I saw her in clinic yesterday, she was in intractable pain and her abdomen looks tense. She came to the emergency room and a repeat CT scan without contrast showed progression of liver metastasis. There is also a mass noted in the pancreatic head. Her disease has progressed rapidly. Her performance status has declined. Her performance status is very poor and her prognosis is very poor. I had a long discussion with the patient, her , and her granddaughter at the bedside. We discussed continuing palliative chemotherapy, but I think chances of her responding to chemotherapy are small. With a poor performance status, she may not tolerate chemotherapy very well. We also discussed best supportive care with hospice. At this point, they have not decided what they want to do. We talked about consulting palliative care medicine for visitor services information assistant and they agree. 2. Recurrent ascites due to metastatic cancer. CT scan showed increased omental caking again. Radiology has been consulted for a therapeutic paracentesis. 3. Abdominal pain due to metastatic cancer. She is currently on Dilaudid. I am going to start her on long-acting morphine. She was given a fentanyl patch 2 days ago in the emergency room, but that has been discontinued. 4. Elevated liver enzymes due to liver metastasis. 5. History of pulmonary embolism. She has been on Eliquis, but it is on hold for the paracentesis. PLAN: 1. Consult palliative care medicine. 2. Await therapeutic paracentesis. 3. Review CT scan. Extensive discussion with the patient and family. 4. Add long-acting morphine. Thank you Dr. Brownlee for asking me to see this patient. MD JA Banda/VIJAYA , 08:24 AM , 09:12 AM [facility]
--- NOTE | 2018-02-20 10:23 | P.CONPAL ---
Consult Service: Palliative Care Requesting Physician: Urbano Olivera Reason for Consult: a. To assist with evaluation and management of symptoms including: Pain b. To assist medical decision maker(s) with: better understanding of current medical conditions; weighing benefits/burdens of medical treatment options; making medical treatment decisions. Primary Care Provider: Roro Tate History of Present Illness History of Present Illness: This 72-year-old female presented to the ED on 02/19/18, with complaints of abdominal pain nausea and vomiting she was instructed to report to the ED per her oncologist office follow-up that day. She has known history of metastatic pancreatic cancer. She completed her last cycle of chemotherapy last month. She has had ongoing increasing weakness and abdominal pain which worsened in the past few days. She had been seen in the ED 2 days prior and given a fentanyl patch. She also had recent paracentesis 02/11/18 for large volume ascites. She reported severe abdominal cramping pain sharp and diffuse no radiation. She also reported shortness of breath, nonproductive cough. Fever and chills denied. * CT abdomen pelvis obtained=1. Vague pancreatic head mass and widespread metastatic lesions of the liver and accounting for differences between this study and the prior CT with contrast, I believe worse.2. Moderate ascites, worse. Omental caking about the same.3. Small bilateral effusions and left side predominant consolidation now seen of the visualized lung bases. * She was admitted for further evaluation and management, with oncology consulted. IR consulted for therapeutic paracentesis. Leukocytosis WBC 39, + consolidation per CT, started on aztreonam, azithromycin. Eliquis held for paracentesis. LFTs elevated. * Oncology notes discussion with family possibility of continuing palliative chemotherapy but chances of response are very small, additionally poor performance status may not tolerate well. Also discussed supportive care with hospice. Family unsure of how to proceed. Oncology added long-acting morphine 30 mg p.o. Q 12hr. Palliative care consulted to assist with clarification of goals of treatment. Patient seen in room multiple family members at bedside. She is alert mostly oriented though at times forgetful. At times falls asleep. She is pleasant, cooperative. Patient, family endorse that adjustments to pain medication have helped today patient is much more comfortable, restful, she is actually falling asleep at times. They indicate that between the paracentesis and oral pain medication added she is very comfortable. Possibly with some mild anxiety related family indicates cognitively sharp otherwise. Met with patient, family extensively at bedside, daughter joins shortly after starting meeting. *Discussed all with primary nurse Additional oncology history per Dr. Olivera: Metastatic pancreatic cancer diagnosed earlier this year. Initially presented with obstructive jaundice was found to have a mass in the pancreatic neck as well as multiple liver metastases. Also noted to have donny hepatitis lymphadenopathy. CA 199 more than 84,000. Biopsy of liver indicated moderately differentiated adenocarcinoma with focal mucinous features compatible with pancreatic primary. She was initially started on Abraxane and gemcitabine 09/2017 with initial good response and tumor markings trending down pain also resolving. However in January tumor markers again uptrending and with increased abdominal discomfort. She sought evaluation at [facility] and was told no clinical trials available. Over the past 2-3 weeks following that she had rapid disease progression. Underwent therapeutic paracentesis 02/12 3 L removed. She had some relief for a few days but again experienced increased abdominal distention and pain. She was noted to have significant pain when seen outpatient by Dr. Olivera. Function/Cognitive Trajectory: Lives at home with spouse. Previously independent with all ADLs. No cognitive deficits reported. Significant weakness and fatigue over the last few weeks patient less and less ambulatory and requiring some assist with ADLs due to this. Review of Systems Constitutional: Reports fatigue, Denies chills, Denies fever(s) Cardiovascular: Reports shortness of breath with activity, Denies chest pain Respiratory: Reports cough, Reports shortness of breath with activity, Denies excessive phlegm production Gastrointestinal: Reports abdominal pain, Reports constipation, Denies difficulty swallowing, Denies loose stools, Denies nausea, Denies vomiting Genitourinary: Denies blood in urine, Denies painful urination Musculoskeletal: Denies back pain Skin/Breast: Denies rash Neurologic: Denies dizziness, Denies headache(s), Denies localized weakness, Denies tingling/numbness/burning sensations PMFSH - History History Provided By: Patient, Family Member - Medical History Medical History: Medical History (Last Updated 02/19/18 @ 22:17 by Wendy Hernandez) Hypertension Pulmonary embolism Pancreas cancer Port-A-Cath in place - Surgical History Surgical History: Surgical History (Last Updated 02/19/18 @ 22:11 by Wendy Hernandez) Status post chemotherapy Hx of appendectomy - Family History Family History: Family History (Last Updated 02/20/18 @ 10:14 by VINCENT Knight) Father Prostate cancer Mother Thyroid cancer - Tobacco History Second Hand Smoke Exposure: No Tobacco Use In Past 30 Days: No Smoking Status: Never smoker Tobacco Type: Cigarettes - Alcohol History How Often Do You Have a Drink Containing Alcohol: Never - Substance Use History Substance History: No History of Abuse - Travel History History of Recent Travel: No Recent Travel in the [place] Within the Last 8 Weeks: No Recent Travel Out of the Country Within the Last 8 Weeks: No - Immunization History Tetanus Immunization: Unsure Hx Influenza Vaccine This Season: No Medications and Allergies Active Medications: Active Medications Acetaminophen (Tylenol) 650 mg PO Q4H PRN PRN Reason: Temp > 100.4 Al Hydroxide/Mg Hydroxide (Milk Of Magnesia Liq) 30 ml PO Q12H PRN PRN Reason: Mild Constipation Bisacodyl (Dulcolax Supp) 10 mg RECTAL DAILY PRN PRN Reason: SEVERE CONSITIPATION Hydromorphone HCl (Dilaudid Pf Inj) 1 mg IV.PUSH Q3H PRN PRN Reason: pain 6-10 Last Admin: 02/20/18 07:44 Dose: 1 mg Sodium Chloride (Ns Inj) 1,000 mls @ 50 mls/hr IV.CONT .Q20H [facility] Last Admin: 02/20/18 06:22 Dose: 125 mls/hr Vancomycin/Sodium Chloride (Vancomycin Inj) 1 gm in 200 mls @ 200 mls/hr IV.SIG BARREL HEADER [facility] Azithromycin 500 mg/ Sodium (Chloride) 250 mls @ 250 mls/hr IV.SIG Q24H [facility] Aztreonam 2 gm/ Sodium (Chloride) 100 mls @ 200 mls/hr IV.SIG Q8H [facility] Last Infusion: 02/20/18 07:49 Dose: Infused Lactulose (Lactulose Liq) 30 ml PO DAILY PRN PRN Reason: SEVERE CONSITIPATION Morphine Sulfate (Oramorph Sr) 30 mg PO Q12HR [facility] Ondansetron HCl (Zofran Odt) 4 mg PO Q6H PRN PRN Reason: NAUSEA OR VOMITING Senna/Docusate Sodium (Marcela-Colace) 1 tab PO BID [facility] Sennosides (Senokot) 17.2 mg PO Q12H PRN PRN Reason: Moderate Constipation Sodium Chloride (Ns Flush) 2 ml IV.FLUSH PRN PRN PRN Reason: FLUSH AFTER USING IV ACCESS Sodium Chloride (Ns Flush) 2 ml IV.FLUSH BID NELLIE Sodium Chloride (Ns Flush) 2 ml IV.FLUSH PRN PRN PRN Reason: FLUSH AFTER USING IV ACCESS Temazepam (Restoril) 15 mg PO HS PRN PRN Reason: INSOMNIA Allergies Allergy/AdvReac Type Severity Reaction Status Date / Time ciprofloxacin Allergy Severe Anaphylaxis Verified 02/11/18 11:38 cefaclor Allergy Intermediate hives Verified 02/11/18 11:38 cefprozil Allergy Intermediate hives Verified 02/11/18 11:38 estrogens, conjugated Allergy Intermediate hives Verified 02/11/18 11:38 Influenza Virus Vaccines Allergy Intermediate "was in Verified 02/11/18 11:38 bed sick for 2 weeks after receiving it" latex Allergy Intermediate blisters Verified 02/11/18 11:38 Latex, Natural Rubber Allergy Intermediate blisters Verified 02/11/18 11:38 nitrofurantoin Allergy Intermediate hives Verified 02/11/18 11:38 pecan nut Allergy Intermediate Anaphylaxis Verified 02/11/18 11:38 propoxyphene Allergy Intermediate hives Verified 02/11/18 11:38 terfenadine Allergy Intermediate hives Verified 02/11/18 11:38 mold Allergy Unknown Congestion Verified 02/11/18 11:38 pollen extracts Allergy Unknown Congestion Verified 02/11/18 11:38 Cladosporium Herbarum Allergy Intermediate hives Uncoded 02/11/18 11:38 Ani House Dust Allergy Intermediate hives Uncoded 02/11/18 11:38 stephylium Allergy Intermediate it is a Uncoded 02/11/18 11:38 mold and causes hives bermuda grass Allergy Unknown Congestion Uncoded 02/11/18 11:38 calamari Allergy Unknown Congestion Uncoded 02/11/18 11:38 dust mites Allergy Unknown Congestion Uncoded 02/11/18 11:38 pepper tree Allergy Unknown Congestion Uncoded 02/11/18 11:38 pet dander Allergy Unknown Congestion Uncoded 02/11/18 11:38 melva Allergy Unknown Congestion Uncoded 02/11/18 11:38 Home Medications Medication Instructions Recorded Confirmed Type oxycodone 5 mg PO Q4-6H PRN 02/11/18 02/19/18 History Advance Directives Living Will: No Ethical and Legal Issues: Patient currently capacitated and able to make her own decisions however she is lethargic and slightly forgetful at times. Per [place] statutes her would be appropriate proxy if she became incapacitated. She & family plan to discuss healthcare surrogate, advanced directives further in the coming days. Palliative provided with 5 wishes, advance directive paperwork to review. Physical Exam Vital Signs: Vital Signs - 24 hr 02/19/18 16:54 02/19/18 17:18 02/19/18 17:59 Temperature 97.2 F L Pulse Rate 112 H 99 H Respiratory Rate 20 16 Blood Pressure 114/72 120/71 Pulse Oximetry 98 92 L 95 02/19/18 18:34 02/19/18 19:00 02/19/18 21:27 Temperature 98.2 F Pulse Rate 97 H 96 H Respiratory Rate 16 16 Blood Pressure 133/73 150/78 H Pulse Oximetry 96 98 99 02/19/18 22:23 02/20/18 00:00 02/20/18 04:00 Temperature 97.9 F Pulse Rate 100 H 98 H 112 H Respiratory Rate 17 Blood Pressure 133/71 Pulse Oximetry 02/20/18 07:51 Temperature 97.7 F Pulse Rate 136 H Respiratory Rate 14 Blood Pressure 121/44 L Pulse Oximetry 96 I&O: Intake & Output 02/18/18 02/19/18 02/20/18 02/21/18 06:59 06:59 06:59 06:59 Intake Total 2350 / 2350 100 / 100 Output Total 300 / 300 Balance 2049 100 / 100 Weight 59.9 kg Physical Exam: CONSTITUTIONAL/GENERAL: This is a very thin, jaundiced chronically ill- appearing patient. TUBES/LINES/DRAINS: Peripheral IV left upper extremity, port access right chest , nasal cannula O2 SKIN: No rashes, or lesions. No wounds visible.+ Jaundice. Skin warm and dry. HEAD: Atraumatic. Normocephalic. EYES: Pupils equal and round and reactive. Extraocular motions intact. + scleral icterus. No injection or drainage. Fundi not examined. ENT: Hearing grossly normal. Nose without bleeding or purulent drainage. Throat without visible erythema, exudates, masses, or lesions. NECK: Trachea midline. Supple, nontender. No palpable thyroid enlargement or nodularity. CARDIOVASCULAR: Regular rate and rhythm without murmur. No JVD. Peripheral pulses symmetric. RESPIRATORY/CHEST: Symmetric, unlabored respirations. On nasal cannula 2 L. Clear to auscultation. Breath sounds equal bilaterally. GASTROINTESTINAL: Abdomen soft, flat, + mildly tender, nondistended. Limited palpation 2/2 to tenderness. Bowel sounds hypoactive GENITOURINARY: Without palpable bladder distension. MUSCULOSKELETAL: Extremities without clubbing, cyanosis, or edema. No joint tenderness or effusion noted. No calf tenderness. LYMPHATICS: No palpable cervical or supraclavicular adenopathy. NEUROLOGICAL: Awake and alert. Oriented x2-3, forgetful. Falls asleep at times. Motor and sensory grossly within normal limits. Follows commands. Cognitively sharp. Moves all extremities. PSYCHIATRIC: No obvious anxiety/depression. no apparent hallucinations or other psychotic thought process. Diagnostic Tests Laboratory: Laboratory Results - last 72 hr 02/19/18 02/19/18 02/19/18 18:00 18:00 18:00 WBC 39.9 H RBC 3.67 L Hgb 10.7 L Hct 32.1 L MCV 87.5 MCH 29.0 MCHC 33.2 RDW 17.4 H Plt Count 500 H MPV 8.2 Prelim Diff (Auto) Slide review pending Neut % (Auto) 82.1 H Lymph % (Auto) 10.9 [place] % (Auto) 6.9 Eos % (Auto) 0.0 Baso % (Auto) 0.1 Neut # (Auto) 32.7 H Lymph # (Auto) 4.3 [place] # (Auto) 2.8 H Eos # (Auto) 0.0 Baso # (Auto) 0.0 WBC Differential Manual diff final Seg Neuts % (Manual) 87 H Band Neuts % (Manual) 3 Lymphocytes % (Manual) 2 L Monocytes % (Manual) 7 Myelocytes % (Man) 1 H Abs Neuts (Manual) 36.3 H Differential Comment . Platelet Estimate High H Platelet Morphology Normal Target Cells 1+ H PT 16.5 H INR 1.6 APTT 31.8 H Sodium 118 L* Potassium 6.1 H Chloride 81 L Carbon Dioxide 23.9 Anion Gap 13 BUN 38 H Creatinine 0.94 Estimated GFR 59 L Random Glucose 88 Calcium 8.9 Total Bilirubin 19.3 H AST 222 H ALT 119 H Alkaline Phosphatase 1189 H Total Protein 5.4 L Albumin 1.7 L Lipase 195 Urine Color Urine Clarity Urine pH Ur Specific [place] Urine Protein Urine Glucose (UA) Urine Ketones Urine Occult Blood Urine Nitrate Urine Bilirubin Urine Ictotest Urine Urobilinogen Ur Leukocyte Esterase Urine RBC Urine WBC Ur Squamous Epith Cells Urine Bacteria Hyaline Casts WBC Casts Urine Mucus Micro UA Comment Urine Culture Comments 02/19/18 02/20/18 02/20/18 21:00 05:00 05:00 WBC 30.1 H RBC 3.37 L Hgb 9.5 L Hct 29.3 L MCV 87.1 MCH 28.3 MCHC 32.5 RDW 17.5 H Plt Count 444 MPV 7.2 Prelim Diff (Auto) Slide review pending Neut % (Auto) Lymph % (Auto) [place] % (Auto) Eos % (Auto) Baso % (Auto) Neut # (Auto) Lymph # (Auto) [place] # (Auto) Eos # (Auto) Baso # (Auto) WBC Differential Manual diff final Seg Neuts % (Manual) 90 H Band Neuts % (Manual) 1 Lymphocytes % (Manual) 3 L Monocytes % (Manual) 6 Myelocytes % (Man) Abs Neuts (Manual) 27.4 H Differential Comment . Platelet Estimate Normal Platelet Morphology Normal Target Cells 1+ H PT INR APTT Sodium 122 L* Potassium 5.2 H D Chloride 87 L Carbon Dioxide 25.1 Anion Gap 10 BUN 48 H Creatinine 0.95 Estimated GFR 58 L Random Glucose 89 Calcium 8.3 L Total Bilirubin AST ALT Alkaline Phosphatase Total Protein Albumin Lipase Urine Color Bobbi Urine Clarity Cloudy H Urine pH 5.0 Ur Specific [place] 1.018 Urine Protein Negative Urine Glucose (UA) 50 Urine Ketones Negative Urine Occult Blood Negative Urine Nitrate Negative Urine Bilirubin Moderate H Urine Ictotest Positive H Urine Urobilinogen 4 or greater Ur Leukocyte Esterase Negative Urine RBC 1 Urine WBC 7 H Ur Squamous Epith Cells 6 Urine Bacteria Occasional H Hyaline Casts 3 WBC Casts 15 Urine Mucus Moderate H Micro UA Comment Culture not ind Urine Culture Comments Culture not ind Result Diagrams: 02/20/18 05:00 02/20/18 05:00 Microbiology: Microbiology 02/19/18 19:55 Aerobic Blood Culture - Preliminary Blood - Peripheral No growth in 1 day Anaerobic Blood Culture - Preliminary No growth in 1 day 02/19/18 20:00 Aerobic Blood Culture - Preliminary Blood - Peripheral No growth in 1 day Anaerobic Blood Culture - Preliminary No growth in 1 day Imaging: Impressions Abdomen/Pelvis CT 02/19/18 17:50 CONCLUSION: 1. Vague pancreatic head mass and widespread metastatic lesions of the liver and accounting for differences between this study and the prior CT with contrast , I believe worse. 2. Moderate ascites, worse. Omental caking about the same. 3. Small bilateral effusions and left side predominant consolidation now seen of the visualized lung bases. Paracentesis Ultrasound 02/20/18 00:00 CONCLUSION: Uncomplicated ultrasound-guided paracentesis. Procedures: Paracentesis Ultrasound 02/20/18 Patient/Family Conference Present at Family Conference: Daughter, granddaughter, , patient Family Conference Time: 45 Family Conference Location: Bedside Issues Discussed: Met with patient and family at bedside, discussion included the following: * Palliative care role, purpose, approach * Additional medical, psychosocial, and spiritual history * Patients general health, functional status, and cognitive changes in the months leading up to the current hospitalization * Patient/family understanding of the current medical problems * Patient/family understanding of prognosis * Patients goals of care as best understood from advance directives and/or conversations and/or values * Current medical treatment options and benefits/burdens of those options * Likely scenarios comparing ongoing aggressive care with a transition to comfort measures only-role, services, philosophy * Review advanced directives/healthcare surrogate-patient has not completed this request documents to review and discuss with her family * Review of CPR/CODE STATUS benefits/burdens/limitations of CPR--patient to remain full code for now by default though will discuss further with her family in the coming days * Questions answered to the best of my ability * Palliative care contact information provided Patient and family overall appear to have good understanding of disease process and overall prognosis. They appear to be leaning towards comfort focused measures however sounds as if family is also grieving and struggling to accept decline and expected terminal prognosis of disease process. They indicate upon initial diagnosis patient did very well for many months with ongoing treatment and the significant decline has been very recent and they are struggling with this. Ultimately the patient wants to be comfortable and does not want to suffer. They are going to discuss further as a family in the coming days sounds as if they are leaning towards comfort/hospice at home. Assessment and Plan - Disease Oriented Problem List (1) Pancreatic cancer (2) History of DVT (deep vein thrombosis) (3) Pneumonia (4) Acute hyponatremia (5) Acute dehydration (6) Metastasis from pancreatic cancer - Symptom Scale (1) Pain 0-10 Scale: 8 Pertinent Non-Medical Issues: Psychosocial: Originally from [place] though has lived in [place] about 16 years. to her current since March of last year. 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 Supported by adult daughter, as well as local adult granddaughter who is an ICU nurse. Spiritual: General acute hospital applications chemist visits Legal:Patient currently capacitated and able to make her own decisions however she is lethargic and slightly forgetful at times. Per [place] statutes her would be appropriate proxy if she became incapacitated. She & family plan to discuss healthcare surrogate, advanced directives further in the coming days. Palliative provided with 5 wishes, advance directive paperwork to review. Ethical issues impacting care: No ethical issues identified. Important Contacts: Humphrey [phone] Prognosis: This patient was admitted for acute abdominal pain and nausea underlying diagnosis of metastatic pancreatic cancer. She is originally diagnosed in September of this year and initially doing well with treatment. However, in January was found to have significant disease progression and over the last few weeks has had significant decline in performance status. Might become a candidate for palliative chemotherapy though may not tolerate this secondary to poor performance status. Appropriate for hospice if goals compatible. Plan: Legal decision maker:Patient currently capacitated and able to make her own decisions however she is lethargic and slightly forgetful at times. Per [place] statutes her would be appropriate proxy if she became incapacitated. She & family plan to discuss healthcare surrogate, advanced directives further in the coming days. Palliative provided with 5 wishes, advance directive paperwork to review. Goals: Evolving. Patient and family to discuss further continued aggressive course versus comfort measures with hospice. We have reviewed these options and possible trajectories at length; it appears patient /family probably leaning towards hospice however no decisions made today. CODE STATUS: Full code by default patient and family to discuss further in the coming days SYMPTOMS: --Pain: Patient with ongoing abdominal pain, most recently worsened 8-9/10, likely secondary to disease progression, as well as worsened with increase ascites. Improved post paracentesis 4 L, as well as addition of long-acting Oramorph 30 mg today. She had been using oxycodone at home essentially around the very little if any relief. Patient and family indicating significant pain relief, though patient is quite drowsy at times and has been falling asleep often, monitor over the next 24 hours, possible she may require down titration to 15 mg every 12 hours versus 30 mg every 12 hour which is her current dosing. Palliative care will continue to follow during hospital course as condition evolves, to assist patient/decision-maker with understanding of medical conditions, weighing benefits/burdens of treatment options, for clarification of goals of treatment. Additionally will assist with any symptoms of palliative concern Time Spent Total Floor Time (mins): 70 (Chart review, PE, discussion with family, discussion with primary nurse) Appreciation Thank you for the opportunity to participate in the care of Paris Sinclair. Attestation Attestation: To help prompt me to consider important information that might be impacting today's encounter and assessment, information from prior notes written by myself or my colleagues may have been "brought forward" into today's note. My signature on this note, however, is an attestation that I personally performed the exam, history, and/or decision-making noted today, and, unless otherwise indicated, the interactions with patient, family, and staff as well as the review of records all occurred today. I also attest that the listed assessment and stated plan reflect my best clinical judgment today based on the combination of historical information, prior notes, and today's exam/ interactions. When time spent is documented, it refers only to time spent today by the signer, or if indicated, combined time spent today by collaborating physician/nurse practitioner.
[2018-02-20] MEDS: Morphine Sulfate 30 MG SR Tablet PO SCH ×2 (10:53→20:01)
[2018-02-20] MEDS: Senna/Docusate Sodium 8.6/50 MG Tablet PO SCH ×2 (10:53→20:01)
--- NOTE | 2018-02-20 11:54 | US ---
EXAM DATE: 02/20/2018 11:11 AM EDT AGE/SEX: 72 years / Female INDICATIONS: Ascites. CLINICAL DATA: This is the patient's subsequent encounter. Patient reports that signs and symptoms h ave been present for 1 week and indicates a pain score of 10/10. MEDICAL/SURGICAL HISTORY: Hypertension. Carcinoma, pancreas. Pulmonary embolism. Ascites. Amirah endectomy. Port-A-Cath placement. Paracentesis. COMPAR[place]: [facility] [place] A[place] W/IMAGE, 02/11/2018. . FLUID: Total volume of 3,600 cc of clear, yellow brownish fluid was removed. Fluid was sent to lab for order ed studies. . . TECHNIQUE: Ultrasound guidance for abdominal paracentesis. Paracentesis. The risks, benefits, and alternatives to ultrasound guided paracentesis were explained to the patient in detail including the risk of bleeding and infection. Written and verbal informed consent was obt ained. With the patient on the ultrasound table, ultrasound imaging was used to select the most appropriate approach for paracentesis. Overlying skin was prepped and draped in the usual sterile fashion and wi th a local anesthetic, a dermatotomy was made with an 11 blade scalpel. A 6 [place] [id number] ca theter was introduced into the peritoneal cavity and fluid was collected. Post procedure scanning reveals no hematoma or other complication. The patient tolerated the procedu re well and left the ultrasound suite in stable condition. CONCLUSION: Uncomplicated ultrasound-guided paracentesis. Electronically signed by: Thomas Arizmendi MD 02/20/2018 11:53 AM EDT
[2018-02-20 12:05] LABS: Total Protein,Peritoneal Fluid 2.2 gm/dL
[2018-02-20 12:18] LABS: Mesothelial,Peritoneal Fluid 3 %; Neutrophils,Peritoneal Fluid 19 %; RBC,Peritoneal Fluid 1896 /mm3 (0-0)
[2018-02-20] MEDS ORDERED: Lidocaine PF 1% Inj 30 ML Vial ONE (13:16)
[2018-02-20] MEDS: Azithromycin Inj 500 MG in Sodium Chlor 0.9% Inj 250 ML IV.SIG SCH (23:24)
[2018-02-21] MEDS: HYDROmorphone PF Inj 2 MG/ML Vial IV.PUSH PRN ×4 (02:30→20:47)
[2018-02-21 05:43] LABS: Baso # (Auto) 0.1 th/mm3 (0.0-0.2); Baso % (Auto) 0.2 % (0.0-2.0); Eos % (Auto) 0.1 % (0.0-4.0); Hemoglobin 9.2 gm/dL (11.6-15.3); Lymph # (Auto) 1.8 th/mm3 (1.0-4.8); Mean Corpuscular HGB Conc 32.7 % (32.0-36.0); Mean Corpuscular Hemoglobin 28.8 pg (27.0-34.0); Mean Platelet Volume 7.4 fL (7.0-11.0); Mono % (Auto) 8.1 % (0.0-8.0); Neut % (Auto) 86.6 % (16.0-70.0); Platelet Count 428 th/mm3 (150-450); Red Blood Count 3.19 mil/mm3 (4.00-5.30); Red Cell Distribution Width 17.6 % (11.6-17.2)
[2018-02-21] MEDS: Aztreonam Inj 2 GM in Sodium Chloride 0.9% Inj 100 ML IV.SIG SCH ×2 (06:02→14:04)
[2018-02-21 06:16] LABS: Calcium 8.2 mg/dL (8.5-10.1); Carbon Dioxide 20.4 meq/L (21.0-32.0); Potassium 4.9 meq/L (3.5-5.1)
--- NOTE | 2018-02-21 08:16 | P.PNONC ---
Subjective Interval history: Patient stated that her abdominal pain has improved and she is able to rest better last night she is still very weak. She denies any chest pain. Shortness of breath is stable. Denies any headache. Objective Vital Signs/Intake & Output: Vital Signs 02/20/18 09:00 02/20/18 09:17 02/20/18 10:23 Temperature 97.5 F L 98.1 F Pulse Rate 110 H 120 H 113 H Respiratory Rate 18 18 Blood Pressure 101/70 110/71 Pulse Oximetry 92 L 97 02/20/18 10:58 02/20/18 13:48 02/20/18 16:00 Temperature 97.1 F L Pulse Rate 109 H 100 H Respiratory Rate 16 16 14 Blood Pressure 113/68 114/62 Pulse Oximetry 89 L 99 02/20/18 20:00 02/21/18 00:00 02/21/18 02:00 Temperature 98.4 F 97.7 F Pulse Rate 100 H 94 H 104 H Respiratory Rate 15 14 18 Blood Pressure 101/63 124/80 109/60 Pulse Oximetry 98 99 92 L 02/21/18 04:00 Temperature 97.5 F L Pulse Rate 96 H Respiratory Rate 12 Blood Pressure 102/56 L Pulse Oximetry 98 Intake & Output 02/20/18 02/21/18 02/21/18 18:59 06:59 18:59 Intake Total 1680 / 1680 1350 / 1350 Output Total 900 / 900 300 / 300 Balance 780 / 780 1050 / 1050 Intake: IV 1200 / 1200 1350 / 1350 NS Inj 1,000 ML @ 50 mls/hr IV. 1000 / 1000 1000 / 1000 CONT .Q20H NELLIE Rx#:[id number] Azithromycin Inj 500 MG In NS 250 / 250 Inj 250 ML @ 250 mls/hr IV.SIG Q24H NELLIE Rx#:[id number] Azactam Inj 2 GM In NS Inj 100 200 / 200 100 / 100 ML @ 200 mls/hr IV.SIG Q8H NELLIE Rx#:[id number] Oral 480 / 480 Output: Urine 900 / 900 300 / 300 Other: Date of Last Bowel Movement 02/19/18 02/19/18 Result Diagrams: 02/21/18 05:30 02/21/18 05:30 Laboratory Results: Laboratory Results - last 24 hr 02/20/18 02/20/18 02/21/18 09:56 09:56 05:30 WBC 37.0 H RBC 3.19 L Hgb 9.2 L Hct 28.0 L MCV 88.0 MCH 28.8 MCHC 32.7 RDW 17.6 H Plt Count 428 MPV 7.4 Prelim Diff (Auto) Slide review pending Neut % (Auto) 86.6 H Lymph % (Auto) 5.0 L Towns % (Auto) 8.1 H Eos % (Auto) 0.1 Baso % (Auto) 0.2 Neut # (Auto) 32.0 H Lymph # (Auto) 1.8 Towns # (Auto) 3.0 H Eos # (Auto) 0.0 Baso # (Auto) 0.1 Differential Comment . Sodium Potassium Chloride Carbon Dioxide Anion Gap BUN Creatinine Estimated GFR Random Glucose Calcium Peritoneal RBC 1896 H Periton Nuc Cells 918 H Periton Neutrophils 19 Periton Lymphocytes 16 Peritoneal Monocytes 3 Periton Mesothelial 3 Periton Histiocytes 59 Peritoneal Tot Protein 2.2 Peritoneal Albumin 1.1 Peritoneal LDH 670 Peritoneal Glucose 62 Peritoneal Amylase 158 02/21/18 05:30 WBC RBC Hgb Hct MCV MCH MCHC RDW Plt Count MPV Prelim Diff (Auto) Neut % (Auto) Lymph % (Auto) Towns % (Auto) Eos % (Auto) Baso % (Auto) Neut # (Auto) Lymph # (Auto) Towns # (Auto) Eos # (Auto) Baso # (Auto) Differential Comment Sodium 123 L* Potassium 4.9 Chloride 90 L Carbon Dioxide 20.4 L Anion Gap 13 BUN 55 H Creatinine 1.17 H Estimated GFR 45 L Random Glucose 83 Calcium 8.2 L Peritoneal RBC Periton Nuc Cells Periton Neutrophils Periton Lymphocytes Peritoneal Monocytes Periton Mesothelial Periton Histiocytes Peritoneal Tot Protein Peritoneal Albumin Peritoneal LDH Peritoneal Glucose Peritoneal Amylase Culture Results: Microbiology 02/19/18 19:55 Aerobic Blood Culture - Preliminary Blood - Peripheral No growth in 1 day Anaerobic Blood Culture - Preliminary No growth in 1 day 02/19/18 20:00 Aerobic Blood Culture - Preliminary Blood - Peripheral No growth in 1 day Anaerobic Blood Culture - Preliminary No growth in 1 day Imaging Studies: Impressions Paracentesis Ultrasound 02/20/18 00:00 CONCLUSION: Uncomplicated ultrasound-guided paracentesis. Medications: Active Medications Generic Name Dose Route Start Last Admin Trade Name Freq PRN Reason Stop Dose Admin Diphenhydramine HCl 25 mg 02/20/18 20:57 02/21/18 00:32 Benadryl PO 25 mg Q4H PRN Administration ITCHING Hydromorphone HCl 1 mg 02/20/18 04:41 02/21/18 06:02 Dilaudid Pf Inj IV.PUSH 1 mg Q3H PRN Administration pain 6-10 Sodium Chloride 1,000 mls @ 50 mls/hr 02/19/18 18:00 02/20/18 23:23 Ns Inj IV.CONT 125 mls/hr .Q20H NELLIE Administration Azithromycin 500 mg/ Sodium 250 mls @ 250 mls/hr 02/20/18 22:00 02/21/18 00: 37 Chloride IV.SIG Infused Q24H NELLIE Infusion Aztreonam 2 gm/ Sodium 100 mls @ 200 mls/hr 02/19/18 23:00 02/21/18 06:02 Chloride IV.SIG 200 mls/hr Q8H NELLIE Administration Morphine Sulfate 30 mg 02/20/18 09:00 02/20/18 20:01 Oramorph Sr PO 30 mg Q12HR NELLIE Administration Senna/Docusate Sodium 1 tab 02/20/18 09:00 02/20/18 20:01 Marcela-Colace PO 1 tab BID NELLIE Administration Sodium Chloride 2 ml 02/20/18 09:00 02/20/18 20:01 Ns Flush IV.FLUSH 2 ml BID NELLIE Administration Objective Remarks: GENERAL: Well-nourished, well-developed patient. Cachectic and weak. SKIN: Warm and dry. Jaundice. HEAD: Normocephalic. EYES: Scleral icterus. No injection or drainage. NECK: Supple, trachea midline. No JVD or lymphadenopathy. LYMPHATIC: No adenopathy. CARDIOVASCULAR: Regular rate and rhythm without murmurs. RESPIRATORY: Breath sounds diminished at bases. No accessory muscle use. GASTROINTESTINAL: Abdomen soft, tender in the upper abdomen. No rebound or rigidity. Positive bowel sounds. Palpable mass right upper quadrant. EXTREMITIES: No cyanosis, or edema. MUSCULOSKELETAL: Adequate muscle tone. NEUROLOGICAL: No obvious focal deficit. Awake, alert, and oriented x3. PSYCHIATRIC: Appropriate mood and affect; insight and judgment normal. Assessment/Plan (1) Ascites Code(s): R18.8 - Other ascites Status: Acute (2) Pancreatic cancer Code(s): C25.9 - Malignant neoplasm of pancreas, unspecified Status: Acute (3) History of DVT (deep vein thrombosis) Code(s): Z86.718 - Personal history of other venous thrombosis and embolism Status: Acute (4) Pneumonia Code(s): J18.9 - Pneumonia, unspecified organism Status: Acute (5) Acute hyponatremia Code(s): E87.1 - Hypo-osmolality and hyponatremia Status: Acute (6) Acute dehydration Code(s): E86.0 - Dehydration Status: Acute (7) Metastasis from pancreatic cancer Code(s): C79.9 - Secondary malignant neoplasm of unspecified site; C25.9 - Malignant neoplasm of pancreas, unspecified Status: Acute (8) Pain Code(s): R52 - Pain, unspecified Status: Acute - Plan 1. Metastatic pancreatic cancer. She presented earlier this year with multiple liver metastases and lymphadenopathy in the donny hepatis. She also has a mass in the pancreatic neck. CA 19-9 was more than 200,000. Biopsy of the liver mass showed poorly differentiated adenocarcinoma with focal mucinous feature consistent with pancreatic carcinoma. She started gemcitabine and Abraxane in September. She had a good response. Tumor marker trended down to 44,000. A CT scan in December showed the liver mass had decreased in size and the pancreatic mass and adenopathy had resolved. Unfortunately, after her fifth cycle of chemotherapy, she began to have abdominal discomfort again. Tumor marker trended back up to 82,000. She went to [facility], but was told there was no clinical trial available. Her disease; however, progressed rapidly and the last 2 weeks she developed recurrent ascites and increased abdominal pain. She went to the emergency room 02/12/2018 and had 3 liters of ascitic fluid removed. She went back to the emergency room again this past Sunday with abdominal pain and was subsequently discharged home. She came to the emergency room and a repeat CT scan without contrast showed progression of liver metastasis. There is also a mass noted in the pancreatic head. Her disease has progressed rapidly. Her performance status has declined. Her performance status is very poor and her prognosis is very poor. 02/21/18 patient had paracentesis removal of 3.6 L of fluid February 20. Her abdominal pain has improved. She however is still very weak. 2. Recurrent ascites due to metastatic cancer. CT scan showed increased omental caking again. 3. Abdominal pain due to metastatic cancer. She is currently on Dilaudid. I am going to start her on long-acting morphine. She was given a fentanyl patch 2 days ago in the emergency room, but that has been discontinued. 02/21/18 started on long-acting morphine. Her pain is better controlled. 4. Elevated liver enzymes due to liver metastasis. 5. History of pulmonary embolism. She has been on Eliquis, PLAN: 1. Continue pain control. 2. Restart Eliquis. 3. Palliative care medicine. Patient is very weak and is not a good candidate for further palliative chemotherapy. I think hospice care is appropriate for this patient. 4. Continue supportive care. (1) Ascites Qualifiers: Ascites type: malignant Qualified Code(s): R18.0 - Malignant ascites (2) Pancreatic cancer Qualifiers: Pancreatic malignancy location: unspecified Qualified Code(s): C25.9 - Malignant neoplasm of pancreas, unspecified (4) Pneumonia Qualifiers: Pneumonia type: due to unspecified organism Laterality: bilateral Lung location: lower lobe of lung Qualified Code(s): J18.1 - Lobar pneumonia, unspecified organism
[2018-02-21 08:24] LABS: Lymphocytes 6 % (9-44); Monocytes 10 % (0-8)
[2018-02-21 08:25] LABS: Platelet Estimate Normal (Normal); Platelet Morphology Normal (Normal); Target Cells 1+; Toxic Granulation 1+
[2018-02-21 08:26] LABS: Polychromasia 2.9 % (0.0-1.9)
[2018-02-21] MEDS: Senna/Docusate Sodium 8.6/50 MG Tablet PO SCH ×2 (09:06→22:12)
[2018-02-21] MEDS: Morphine Sulfate 30 MG SR Tablet PO SCH ×3 (09:06→23:53)
--- NOTE | 2018-02-21 11:46 | P.PNIM ---
Subjective Interval history: 72-year-old female with a past medical history significant for metastatic pancreatic cancer presents to the emergency department for evaluation of abdominal pain, nausea and vomiting. The patient was seen by her oncologist, Dr. Olivera, who recommended further evaluation in the emergency department. She just finished her last cycle of chemotherapy approximately 1 month ago. She states she has had increasing weakness and abdominal pain since that time. She states that the pain has been worsening for the past several days. She was seen in the emergency department 2 days ago and given a fentanyl patch. She states that her symptoms persisted despite this treatment. Patient was recently admitted on 02/11/18 for paracentesis secondary to large volume ascites. The patient endorses shortness of breath and a nonproductive cough. She continues to complain of abdominal pain despite IV pain medication. She denies any chest pain. No lateralizing signs/symptoms. Positive fatigue/weakness. No fever/chills. 02-21 PATIENT AND FAMILY HAVE DW WITH PALLIATIVE CARE IS NOW A DNR WILL CONSULT HOSPICE HOPEFULLY HOME WITH HOSPICE TOMORROW WILL TRY TO MAKE PATIENT COMFORTABLE HERE WE CAN DW RN AND PT AND CM AND FAMILY Physical Exam Vital signs: Vital Signs 02/20/18 13:48 02/20/18 16:00 02/20/18 20:00 Temperature 98.4 F Pulse Rate 100 H 100 H Respiratory Rate 16 14 15 Blood Pressure 114/62 101/63 Pulse Oximetry 99 98 02/21/18 00:00 02/21/18 02:00 02/21/18 04:00 Temperature 97.7 F 97.5 F L Pulse Rate 94 H 104 H 96 H Respiratory Rate 14 18 12 Blood Pressure 124/80 109/60 102/56 L Pulse Oximetry 99 92 L 98 02/21/18 08:00 Temperature 97.2 F L Pulse Rate 98 H Respiratory Rate 16 Blood Pressure 95/55 L Pulse Oximetry 98 Intake & Output 02/20/18 02/21/18 02/21/18 18:59 06:59 18:59 Intake Total 1680 / 1680 1450 / 1450 1000 / 1000 Output Total 900 / 900 300 / 300 Balance 780 / 780 1150 / 1150 1000 / 1000 Intake: IV 1200 / 1200 1450 / 1450 1000 / 1000 NS Inj 1,000 ML @ 50 mls/hr IV. 1000 / 1000 1000 / 1000 1000 / 1000 CONT .Q20H NELLIE Rx#:[id number] Azithromycin Inj 500 MG In NS 250 / 250 Inj 250 ML @ 250 mls/hr IV.SIG Q24H NELLIE Rx#:[id number] Azactam Inj 2 GM In NS Inj 100 200 / 200 200 / 200 ML @ 200 mls/hr IV.SIG Q8H NELLIE Rx#:[id number] Oral 480 / 480 Output: Urine 900 / 900 300 / 300 Other: Date of Last Bowel Movement 02/19/18 02/19/18 Narrative: GENERAL: VERY JAUNDICED - VERY THIN FEMALE- LOOKS SOMEWHAT COMFORTABLE SKIN: Warm and dry. JAUNDICE HEAD: Atraumatic. Normocephalic. EYES: Pupils equal and round. POSITIVE scleral icterus. No injection or drainage. ENT: No nasal bleeding or discharge. Mucous membranes pink and moist. TONGUE IS YELLOWED JAUNDICE TOO NECK: Trachea midline. No JVD. CARDIOVASCULAR: Regular rate and rhythm. S1, S2 NO S3 OR S4 RESPIRATORY: No accessory muscle use. Clear to auscultation. Breath sounds equal bilaterally. GASTROINTESTINAL: Abdomen soft, non-tender, nondistended. Hepatic and splenic margins not palpable. MUSCULOSKELETAL: Extremities without clubbing, cyanosis, or edema. No obvious deformities. NEUROLOGICAL: Awake and alert. No obvious cranial nerve deficits. Motor grossly within normal limits. 4 out of 5 muscle strength in the arms and legs. Normal speech. PSYCHIATRIC: Appropriate mood and affect; insight and judgment normal. Results - Labs CBC & Chem 7: 02/21/18 05:30 02/21/18 05:30 Laboratory Results - last 24 hr 02/20/18 02/20/18 02/21/18 09:56 09:56 05:30 WBC 37.0 H RBC 3.19 L Hgb 9.2 L Hct 28.0 L MCV 88.0 MCH 28.8 MCHC 32.7 RDW 17.6 H Plt Count 428 MPV 7.4 Prelim Diff (Auto) Slide review pending Neut % (Auto) 86.6 H Lymph % (Auto) 5.0 L Mcpherson % (Auto) 8.1 H Eos % (Auto) 0.1 Baso % (Auto) 0.2 Neut # (Auto) 32.0 H Lymph # (Auto) 1.8 Mcpherson # (Auto) 3.0 H Eos # (Auto) 0.0 Baso # (Auto) 0.1 WBC Differential Manual diff final Seg Neuts % (Manual) 76 H Band Neuts % (Manual) 8 H Lymphocytes % (Manual) 6 L Monocytes % (Manual) 10 H Abs Neuts (Manual) 31.1 H Differential Comment . Toxic Granulation 1+ H Platelet Estimate Normal Platelet Morphology Normal Polychromasia 2.9 H Target Cells 1+ H Sodium Potassium Chloride Carbon Dioxide Anion Gap BUN Creatinine Estimated GFR Random Glucose Calcium Peritoneal RBC 1896 H Periton Nuc Cells 918 H Periton Neutrophils 19 Periton Lymphocytes 16 Peritoneal Monocytes 3 Periton Mesothelial 3 Periton Histiocytes 59 Peritoneal Tot Protein 2.2 Peritoneal Albumin 1.1 Peritoneal LDH 670 Peritoneal Glucose 62 Peritoneal Amylase 158 02/21/18 05:30 WBC RBC Hgb Hct MCV MCH MCHC RDW Plt Count MPV Prelim Diff (Auto) Neut % (Auto) Lymph % (Auto) Mcpherson % (Auto) Eos % (Auto) Baso % (Auto) Neut # (Auto) Lymph # (Auto) Mcpherson # (Auto) Eos # (Auto) Baso # (Auto) WBC Differential Seg Neuts % (Manual) Band Neuts % (Manual) Lymphocytes % (Manual) Monocytes % (Manual) Abs Neuts (Manual) Differential Comment Toxic Granulation Platelet Estimate Platelet Morphology Polychromasia Target Cells Sodium 123 L* Potassium 4.9 Chloride 90 L Carbon Dioxide 20.4 L Anion Gap 13 BUN 55 H Creatinine 1.17 H Estimated GFR 45 L Random Glucose 83 Calcium 8.2 L Peritoneal RBC Periton Nuc Cells Periton Neutrophils Periton Lymphocytes Peritoneal Monocytes Periton Mesothelial Periton Histiocytes Peritoneal Tot Protein Peritoneal Albumin Peritoneal LDH Peritoneal Glucose Peritoneal Amylase Microbiology 02/19/18 19:55 Blood - Peripheral Aerobic Blood Culture - Preliminary No growth in 2 days 02/19/18 19:55 Blood - Peripheral Anaerobic Blood Culture - Preliminary No growth in 2 days 02/19/18 20:00 Blood - Peripheral Aerobic Blood Culture - Preliminary No growth in 2 days 02/19/18 20:00 Blood - Peripheral Anaerobic Blood Culture - Preliminary No growth in 2 days - Imaging Impressions Paracentesis Ultrasound 02/20/18 00:00 CONCLUSION: Uncomplicated ultrasound-guided paracentesis. Assessment and Plan - Plan 1. Metastatic pancreatic cancer/ascites/intractable abdominal pain Increase frequency of IV Dilaudid for improved pain relief Patient with worsening abdominal ascites Interventional radiology consulted for diagnostic/therapeutic paracentesis ( with leukocytosis and abdominal pain concern for SBP -aztreonam as patient with allergies to cephalosporins) Oncology consulted, appreciate assistance 2. Pneumonia Patient with leukocytosis of 39 CT of the abdomen/pelvis significant for left side predominant consolidation Aztreonam and azithromycin 3. History of DVT Patient on Eliquis for anticoagulation Holding for paracentesis 4. Hyponatremia Sodium 118 Fluid restriction Repeat BMP FEN N.p.o. Electrolytes: As above Holding pharmacologic anticoagulation for paracentesis Code Status: DNR NOW Discussed Condition With: RN AND PT AND CM AND FAMILY AND PALLIATIVE CARE Discharge Planning: CONSULT HOSPICE HOME IN NEXT 24 TO 48 HOURS WITH HOME HOSPICE
[2018-02-21] MEDS: ALPRAZolam 0.25 MG Tablet PO PRN ×2 (11:49→23:22)
--- NOTE | 2018-02-21 11:52 | P.PNPAL ---
Reason for Visit Reason for visit: a. To assist with evaluation and management of symptoms including: Pain b. To assist medical decision maker(s) with: better understanding of current medical conditions; weighing benefits/burdens of medical treatment options; making medical treatment decisions. Subjective Subjective/Interval History: Patient seen today to follow-up on pain, goals. Received a voicemail prior to my arrival to unit from stating they had questions. Patient stable overnight. WBC uptrending 37. CBC otherwise stable/ unremarkable. Blood culture no growth today. BUN and creatinine slightly up trending 55/1.17. Patient with decreased oral intake, decreased urine output. Last dose of prn hydromorphone 1 mg last night. Discussed with primary nurse patient with some anxiety and lethargy but also still with breakthrough pain. Taking in sips and bites. Patient seen in room with , granddaughter at bedside. She is lethargic though arouses some. She is oriented to self and family. She falls asleep often during conversation. indicates they have talked further as a family and that patient would want to proceed with comfort measures only at this point. They really want to try to get her home with hospice services in place to maintain her comfort at end-of-life. Review with them patient conditions, treatments in place and hospice focus on management of symptoms. Review with them CODE STATUS, and granddaughter affirmed that patient would want DNR status at this time due to limited benefits of CPR at this time in her health. Review with them patient's current pain level, lethargy, as well as reports of anxiety. Family does indicate that she has been lethargic however she is also had significant breakthrough pain. They also indicates she has had some periods where she just seems very uneasy and anxious though she is not able to articulate about what. Explore that this can be multifactorial, can be disease process related, decline related, some sedating effects of medication, also that patient is becoming more debilitated and fatigue and lethargy will be expected to increase. Further explore with him balancing sedating side effects with pain relief. The endorse that at this time perhaps we can decrease prn dosing but leave the long-acting morphine in place as her base. They are also amenable to adding a low-dose oral anti-anxiety. They feel patient would accept some lethargy and physical decline secondary to this with the benefit of additional pain relief and comfort. All questions answered. We also discussed ongoing ascites drainage as the patient has had multiple drainages of significant amounts--review that hospice can assist with facilitating outpatient drainage appointments, or additionally on a case-by- case basis at times patient's have had a drain placed in the abdomen by radiology which hospice nurses can access to drain in the home setting.( Granddaughter, who is a nurse, asked about the possibility of a drain placement) . Review all with medical attending Dr. Galvin, review all with primary nurse. Also spoke to hospice admission nurse Tiarra. Likely all things would be in place for possible discharge home tomorrow with hospice, unlikely to be able to facilitate everything she would need today. Objective Vital Signs: Vital Signs 02/20/18 13:48 02/20/18 16:00 02/20/18 20:00 Temperature 98.4 F Pulse Rate 100 H 100 H Respiratory Rate 16 14 15 Blood Pressure 114/62 101/63 Pulse Oximetry 99 98 02/21/18 00:00 02/21/18 02:00 02/21/18 04:00 Temperature 97.7 F 97.5 F L Pulse Rate 94 H 104 H 96 H Respiratory Rate 14 18 12 Blood Pressure 124/80 109/60 102/56 L Pulse Oximetry 99 92 L 98 02/21/18 08:00 Temperature 97.2 F L Pulse Rate 98 H Respiratory Rate 16 Blood Pressure 95/55 L Pulse Oximetry 98 Intake & Output 02/20/18 02/21/18 02/21/18 18:59 06:59 18:59 Intake Total 1680 / 1680 1450 / 1450 1000 / 1000 Output Total 900 / 900 300 / 300 Balance 780 / 780 1150 / 1150 1000 / 1000 Intake: IV 1200 / 1200 1450 / 1450 1000 / 1000 NS Inj 1,000 ML @ 50 mls/hr IV. 1000 / 1000 1000 / 1000 1000 / 1000 CONT .Q20H NELLIE Rx#:[id number] Azithromycin Inj 500 MG In NS 250 / 250 Inj 250 ML @ 250 mls/hr IV.SIG Q24H NELLIE Rx#:[id number] Azactam Inj 2 GM In NS Inj 100 200 / 200 200 / 200 ML @ 200 mls/hr IV.SIG Q8H NELLIE Rx#:[id number] Oral 480 / 480 Output: Urine 900 / 900 300 / 300 Other: Date of Last Bowel Movement 02/19/18 02/19/18 Physical Exam: CONSTITUTIONAL/GENERAL: This is a very thin, jaundiced chronically ill- appearing patient. Lethargic. TUBES/LINES/DRAINS: Peripheral IV left upper extremity, port access right chest , nasal cannula O2 SKIN: No rashes, or lesions. No wounds visible.+ Jaundice. Skin warm and dry. RESPIRATORY/CHEST: Symmetric, unlabored respirations. On nasal cannula 2 L. Clear to auscultation. Breath sounds equal bilaterally. GASTROINTESTINAL: Abdomen soft, flat, + mildly tender, nondistended. Limited palpation 2/2 to tenderness. Bowel sounds hypoactive GENITOURINARY: Without palpable bladder distension. MUSCULOSKELETAL: Extremities without clubbing, cyanosis, or edema. No joint tenderness or effusion noted. No calf tenderness. NEUROLOGICAL: Lethargic. Arouses intermittently. Partially oriented though difficult to fully assess due to lethargy. Intermittently participates in conversation. Moving all 4 extremities. PSYCHIATRIC: No obvious anxiety/depression. Lethargic difficult to assess Diagnostic Tests Laboratory: Laboratory Results - last 72 hr 02/19/18 02/19/18 02/19/18 18:00 18:00 18:00 WBC 39.9 H RBC 3.67 L Hgb 10.7 L Hct 32.1 L MCV 87.5 MCH 29.0 MCHC 33.2 RDW 17.4 H Plt Count 500 H MPV 8.2 Prelim Diff (Auto) Slide review pending Neut % (Auto) 82.1 H Lymph % (Auto) 10.9 Craig % (Auto) 6.9 Eos % (Auto) 0.0 Baso % (Auto) 0.1 Neut # (Auto) 32.7 H Lymph # (Auto) 4.3 Craig # (Auto) 2.8 H Eos # (Auto) 0.0 Baso # (Auto) 0.0 WBC Differential Manual diff final Seg Neuts % (Manual) 87 H Band Neuts % (Manual) 3 Lymphocytes % (Manual) 2 L Monocytes % (Manual) 7 Myelocytes % (Man) 1 H Abs Neuts (Manual) 36.3 H Differential Comment . Toxic Granulation Platelet Estimate High H Platelet Morphology Normal Polychromasia Target Cells 1+ H PT 16.5 H INR 1.6 APTT 31.8 H Sodium 118 L* Potassium 6.1 H Chloride 81 L Carbon Dioxide 23.9 Anion Gap 13 BUN 38 H Creatinine 0.94 Estimated GFR 59 L Random Glucose 88 Calcium 8.9 Total Bilirubin 19.3 H AST 222 H ALT 119 H Alkaline Phosphatase 1189 H Total Protein 5.4 L Albumin 1.7 L Lipase 195 Urine Color Urine Clarity Urine pH Ur Specific [place] Urine Protein Urine Glucose (UA) Urine Ketones Urine Occult Blood Urine Nitrate Urine Bilirubin Urine Ictotest Urine Urobilinogen Ur Leukocyte Esterase Urine RBC Urine WBC Ur Squamous Epith Cells Urine Bacteria Hyaline Casts WBC Casts Urine Mucus Micro UA Comment Urine Culture Comments Peritoneal RBC Periton Nuc Cells Periton Neutrophils Periton Lymphocytes Peritoneal Monocytes Periton Mesothelial Periton Histiocytes Peritoneal Tot Protein Peritoneal Albumin Peritoneal LDH Peritoneal Glucose Peritoneal Amylase 02/19/18 02/20/18 02/20/18 21:00 05:00 05:00 WBC 30.1 H RBC 3.37 L Hgb 9.5 L Hct 29.3 L MCV 87.1 MCH 28.3 MCHC 32.5 RDW 17.5 H Plt Count 444 MPV 7.2 Prelim Diff (Auto) Slide review pending Neut % (Auto) Lymph % (Auto) Craig % (Auto) Eos % (Auto) Baso % (Auto) Neut # (Auto) Lymph # (Auto) Craig # (Auto) Eos # (Auto) Baso # (Auto) WBC Differential Manual diff final Seg Neuts % (Manual) 90 H Band Neuts % (Manual) 1 Lymphocytes % (Manual) 3 L Monocytes % (Manual) 6 Myelocytes % (Man) Abs Neuts (Manual) 27.4 H Differential Comment . Toxic Granulation Platelet Estimate Normal Platelet Morphology Normal Polychromasia Target Cells 1+ H PT INR APTT Sodium 122 L* Potassium 5.2 H D Chloride 87 L Carbon Dioxide 25.1 Anion Gap 10 BUN 48 H Creatinine 0.95 Estimated GFR 58 L Random Glucose 89 Calcium 8.3 L Total Bilirubin AST ALT Alkaline Phosphatase Total Protein Albumin Lipase Urine Color Bobbi Urine Clarity Cloudy H Urine pH 5.0 Ur Specific [place] 1.018 Urine Protein Negative Urine Glucose (UA) 50 Urine Ketones Negative Urine Occult Blood Negative Urine Nitrate Negative Urine Bilirubin Moderate H Urine Ictotest Positive H Urine Urobilinogen 4 or greater Ur Leukocyte Esterase Negative Urine RBC 1 Urine WBC 7 H Ur Squamous Epith Cells 6 Urine Bacteria Occasional H Hyaline Casts 3 WBC Casts 15 Urine Mucus Moderate H Micro UA Comment Culture not ind Urine Culture Comments Culture not ind Peritoneal RBC Periton Nuc Cells Periton Neutrophils Periton Lymphocytes Peritoneal Monocytes Periton Mesothelial Periton Histiocytes Peritoneal Tot Protein Peritoneal Albumin Peritoneal LDH Peritoneal Glucose Peritoneal Amylase 02/20/18 02/20/18 02/21/18 09:56 09:56 05:30 WBC 37.0 H RBC 3.19 L Hgb 9.2 L Hct 28.0 L MCV 88.0 MCH 28.8 MCHC 32.7 RDW 17.6 H Plt Count 428 MPV 7.4 Prelim Diff (Auto) Slide review pending Neut % (Auto) 86.6 H Lymph % (Auto) 5.0 L Craig % (Auto) 8.1 H Eos % (Auto) 0.1 Baso % (Auto) 0.2 Neut # (Auto) 32.0 H Lymph # (Auto) 1.8 Craig # (Auto) 3.0 H Eos # (Auto) 0.0 Baso # (Auto) 0.1 WBC Differential Manual diff final Seg Neuts % (Manual) 76 H Band Neuts % (Manual) 8 H Lymphocytes % (Manual) 6 L Monocytes % (Manual) 10 H Myelocytes % (Man) Abs Neuts (Manual) 31.1 H Differential Comment . Toxic Granulation 1+ H Platelet Estimate Normal Platelet Morphology Normal Polychromasia 2.9 H Target Cells 1+ H PT INR APTT Sodium Potassium Chloride Carbon Dioxide Anion Gap BUN Creatinine Estimated GFR Random Glucose Calcium Total Bilirubin AST ALT Alkaline Phosphatase Total Protein Albumin Lipase Urine Color Urine Clarity Urine pH Ur Specific [place] Urine Protein Urine Glucose (UA) Urine Ketones Urine Occult Blood Urine Nitrate Urine Bilirubin Urine Ictotest Urine Urobilinogen Ur Leukocyte Esterase Urine RBC Urine WBC Ur Squamous Epith Cells Urine Bacteria Hyaline Casts WBC Casts Urine Mucus Micro UA Comment Urine Culture Comments Peritoneal RBC 1896 H Periton Nuc Cells 918 H Periton Neutrophils 19 Periton Lymphocytes 16 Peritoneal Monocytes 3 Periton Mesothelial 3 Periton Histiocytes 59 Peritoneal Tot Protein 2.2 Peritoneal Albumin 1.1 Peritoneal LDH 670 Peritoneal Glucose 62 Peritoneal Amylase 158 02/21/18 05:30 WBC RBC Hgb Hct MCV MCH MCHC RDW Plt Count MPV Prelim Diff (Auto) Neut % (Auto) Lymph % (Auto) Craig % (Auto) Eos % (Auto) Baso % (Auto) Neut # (Auto) Lymph # (Auto) Craig # (Auto) Eos # (Auto) Baso # (Auto) WBC Differential Seg Neuts % (Manual) Band Neuts % (Manual) Lymphocytes % (Manual) Monocytes % (Manual) Myelocytes % (Man) Abs Neuts (Manual) Differential Comment Toxic Granulation Platelet Estimate Platelet Morphology Polychromasia Target Cells PT INR APTT Sodium 123 L* Potassium 4.9 Chloride 90 L Carbon Dioxide 20.4 L Anion Gap 13 BUN 55 H Creatinine 1.17 H Estimated GFR 45 L Random Glucose 83 Calcium 8.2 L Total Bilirubin AST ALT Alkaline Phosphatase Total Protein Albumin Lipase Urine Color Urine Clarity Urine pH Ur Specific [place] Urine Protein Urine Glucose (UA) Urine Ketones Urine Occult Blood Urine Nitrate Urine Bilirubin Urine Ictotest Urine Urobilinogen Ur Leukocyte Esterase Urine RBC Urine WBC Ur Squamous Epith Cells Urine Bacteria Hyaline Casts WBC Casts Urine Mucus Micro UA Comment Urine Culture Comments Peritoneal RBC Periton Nuc Cells Periton Neutrophils Periton Lymphocytes Peritoneal Monocytes Periton Mesothelial Periton Histiocytes Peritoneal Tot Protein Peritoneal Albumin Peritoneal LDH Peritoneal Glucose Peritoneal Amylase Result Diagrams: 02/21/18 05:30 02/21/18 05:30 Microbiology: Microbiology 02/19/18 19:55 Aerobic Blood Culture - Preliminary Blood - Peripheral No growth in 2 days Anaerobic Blood Culture - Preliminary No growth in 2 days 02/19/18 20:00 Aerobic Blood Culture - Preliminary Blood - Peripheral No growth in 2 days Anaerobic Blood Culture - Preliminary No growth in 2 days Procedures: Paracentesis Ultrasound 02/20/18 Assessment and Plan - Disease Oriented Problem List (1) Pancreatic cancer (2) History of DVT (deep vein thrombosis) (3) Pneumonia (4) Acute hyponatremia (5) Acute dehydration (6) Metastasis from pancreatic cancer - Symptom Scale (1) Pain 0-10 Scale: Unable to quantify (2) Anxiety 0-10 Scale: Unable to quantify Pertinent Non-Medical Issues: Psychosocial: Originally from [place] though has lived in [place] about 16 years. to her current since March of last year. 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 Supported by adult daughter, as well as local adult granddaughter who is an ICU nurse. Spiritual: [facility] [employer] visits Legal:Patient currently capacitated and able to make her own decisions however she is lethargic and slightly forgetful at times. Per [place] statutes her would be appropriate proxy if she became incapacitated. She & family plan to discuss healthcare surrogate, advanced directives further in the coming days. Palliative provided with 5 wishes, advance directive paperwork to review. Ethical issues impacting care: No ethical issues identified. Important Contacts: Humphrey [phone] Prognosis: This patient was admitted for acute abdominal pain and nausea underlying diagnosis of metastatic pancreatic cancer. She is originally diagnosed in September of this year and initially doing well with treatment. However, in January was found to have significant disease progression and over the last few weeks has had significant decline in performance status. Might become a candidate for palliative chemotherapy though may not tolerate this secondary to poor performance status. Appropriate for hospice if goals compatible. Code Status: No Code DNR Plan: Legal decision maker:Patient currently capacitated and able to make her own decisions however she is lethargic and slightly forgetful at times. Per [place] statutes her would be appropriate proxy if she became incapacitated. She & family plan to discuss healthcare surrogate, advanced directives further in the coming days. Palliative provided with 5 wishes, advance directive paperwork to review. Goals: Met again with patient and family at length today. Patient is pretty lethargic and only intermittently participates. is appropriate proxy. Family expresses that at this point they would want to transition to hospice with comfort measures only. They are hopeful to get patient home in the next day or so with hospice support in place. They have inquired about the possibility of indwelling paracentesis catheter drain, I have placed IR consult to evaluate for this. DNR status requested. CODE STATUS: DNR SYMPTOMS: --Pain: Patient with ongoing abdominal pain, most recently worsened 8-910, likely secondary to disease progression, as well as worsened with increase ascites. Improved post paracentesis 4 L, as well as addition of long-acting Oramorph 30 mg today. She had been using oxycodone at home essentially around the very little if any relief. Patient and family indicating significant pain relief, though patient is drowsy, but still with pain. Leave long acting oral morphine as is, decrease hydromorphone prn to 0.5 mg. --Anxiety: Patient with episodes of restlessness and anxiety, though unable to articulate related to what. May be multifactorial, disease related, general decline related, as well as some metabolic encephalopathy. Family amenable to low-dose antianxiety--alprazolam 0.25 mg every 6 hours prn added today. Palliative care will continue to follow during hospital course as condition evolves, to assist patient/decision-maker with understanding of medical conditions, weighing benefits/burdens of treatment options, for clarification of goals of treatment. Additionally will assist with any symptoms of palliative concern Time Spent Total Floor Time (mins): 35 (Chart review, PE, discussion with nursing, discussion with medical attending, discussion with hospice admissions) Attestation Attestation: To help prompt me to consider important information that might be impacting today's encounter and assessment, information from prior notes written by myself or my colleagues may have been "brought forward" into today's note. My signature on this note, however, is an attestation that I personally performed the exam, history, and/or decision-making noted today, and, unless otherwise indicated, the interactions with patient, family, and staff as well as the review of records all occurred today. I also attest that the listed assessment and stated plan reflect my best clinical judgment today based on the combination of historical information, prior notes, and today's exam/ interactions. When time spent is documented, it refers only to time spent today by the signer, or if indicated, combined time spent today by collaborating physician/nurse practitioner.
--- NOTE | 2018-02-21 13:45 | ECG ---
Date Performed: 02/21/2018 Time Performed: 02:24:04 PTAGE: 72 years EKG: Sinus tachycardia with PAC(s) Left axis deviation Poor R wave progression - probable normal variant Loss of R wave in anterior precordium is new since prior tracing, possible anterior injury, age undetermined Clinical correlation is recommended Borderline ECG PREVIOUS TRACING : 09/17/2017 08.44 DOCTOR: Gui Chicas Interpretating Date/Time 02/21/2018 13:44:33
[2018-02-21] MEDS: Sod Chloride 0.9% Inj 1,000 ML IV.CONT SCH ×2 (15:05→17:01)
[2018-02-21] MEDS ORDERED: HYDROmorphone PF Inj 2 MG/ML Vial IV.PUSH ONE (16:28)
[2018-02-21] MEDS: Azithromycin Inj 500 MG in Sodium Chlor 0.9% Inj 250 ML IV.SIG SCH (22:12)
[2018-02-21] MEDS: Hyoscyamine Inj 0.5 MG/ML Ampul IV.PUSH SCH (23:13)
[2018-02-22] MEDS: Aztreonam Inj 2 GM in Sodium Chloride 0.9% Inj 100 ML IV.SIG SCH ×2 (00:25→06:30)
[2018-02-22] MEDS: HYDROmorphone PF Inj 2 MG/ML Vial IV.PUSH PRN ×3 (01:45→11:25)
[2018-02-22] MEDS: Hyoscyamine Inj 0.5 MG/ML Ampul IV.PUSH SCH ×3 (03:27→12:59)
[2018-02-22 05:54] LABS: Hemoglobin 8.8 gm/dL (11.6-15.3); Mean Corpuscular HGB Conc 31.5 % (32.0-36.0); Mean Corpuscular Hemoglobin 28.2 pg (27.0-34.0); Mean Corpuscular Volume 89.6 fL (80.0-100.0); Mean Platelet Volume 7.8 fL (7.0-11.0); Platelet Count 483 th/mm3 (150-450); Red Blood Count 3.13 mil/mm3 (4.00-5.30); Red Cell Distribution Width 18.1 % (11.6-17.2); White Blood Count 35.1 th/mm3 (4.0-11.0)
[2018-02-22 06:21] LABS: Alanine Aminotransferase 174 U/L (10-53); Albumin 1.2 g/dL (3.4-5.0); Alkaline Phosphatase 1208 U/L (45-117); Anion Gap 13 meq/L (5-15); Aspartate Aminotransferase 362 U/L (15-37); Blood Urea Nitrogen 67 mg/dL (7-18); Calcium 7.8 mg/dL (8.5-10.1); Carbon Dioxide 19.8 meq/L (21.0-32.0); Chloride 93 meq/L (98-107); Glomerular Filtration Rate 28 mL/min (>89); Glucose,Random 90 mg/dL (74-106); Potassium 5.3 meq/L (3.5-5.1); Sodium 126 meq/L (136-145); Total Protein 4.1 g/dL (6.4-8.2)
--- NOTE | 2018-02-22 07:41 | P.PNONC ---
Subjective Interval history: Patient is very weak and she has not waken up since 2:00 in the morning according to her , patient appear comfortable. Patient has diffuse edema. Family reported that patient has decreased urine output. Objective Vital Signs/Intake & Output: Vital Signs 02/21/18 08:00 02/21/18 11:50 02/21/18 16:00 Temperature 97.2 F L 97.4 F L 97.5 F L Pulse Rate 98 H 100 H 99 H Respiratory Rate 16 14 20 Blood Pressure 95/55 L 106/66 135/74 Pulse Oximetry 98 100 97 02/21/18 20:00 02/22/18 00:00 02/22/18 04:00 Temperature 98 F 98 F 97.9 F Pulse Rate 103 H 120 H Respiratory Rate 12 12 8 L Blood Pressure 102/63 104/56 L 120/42 L Pulse Oximetry 95 Intake & Output 02/21/18 02/22/18 02/22/18 18:59 06:59 18:59 Intake Total 2460 / 2460 590 / 590 Output Total 200 / 200 Balance 2260 / 2260 590 / 590 Intake: IV 2100 / 2100 350 / 350 NS Inj 1,000 ML @ 50 mls/hr IV. 1999 / 1999 CONT .Q20H [facility] Rx#:[id number] Azithromycin Inj 500 MG In NS 250 / 250 Inj 250 ML @ 250 mls/hr IV.SIG Q24H [facility] Rx#:[id number] Azactam Inj 2 GM In NS Inj 100 100 / 100 100 / 100 ML @ 200 mls/hr IV.SIG Q8H [facility] Rx#:[id number] Oral 360 / 360 240 / 240 Output: Urine 200 / 200 Other: Date of Last Bowel Movement 02/20/18 02/20/18 Result Diagrams: 02/22/18 04:30 02/22/18 04:30 Laboratory Results: Laboratory Results - last 24 hr 02/20/18 02/21/18 02/22/18 09:56 05:30 04:30 WBC 35.1 H RBC 3.13 L Hgb 8.8 L Hct 28.0 L MCV 89.6 MCH 28.2 MCHC 31.5 L RDW 18.1 H Plt Count 483 H MPV 7.8 Prelim Diff (Auto) Manual diff required WBC Differential Manual diff final Seg Neuts % (Manual) 76 H Band Neuts % (Manual) 8 H Lymphocytes % (Manual) 6 L Monocytes % (Manual) 10 H Abs Neuts (Manual) 31.1 H Differential Comment . Toxic Granulation 1+ H Platelet Estimate Normal Platelet Morphology Normal Polychromasia 2.9 H Target Cells 1+ H Sodium Potassium Chloride Carbon Dioxide Anion Gap BUN Creatinine Estimated GFR Random Glucose Calcium Total Bilirubin AST ALT Alkaline Phosphatase Total Protein Albumin Peritoneal Fld Comment 02/22/18 04:30 WBC RBC Hgb Hct MCV MCH MCHC RDW Plt Count MPV Prelim Diff (Auto) WBC Differential Seg Neuts % (Manual) Band Neuts % (Manual) Lymphocytes % (Manual) Monocytes % (Manual) Abs Neuts (Manual) Differential Comment Toxic Granulation Platelet Estimate Platelet Morphology Polychromasia Target Cells Sodium 126 L Potassium 5.3 H Chloride 93 L Carbon Dioxide 19.8 L Anion Gap 13 BUN 67 H Creatinine 1.77 H Estimated GFR 28 L Random Glucose 90 Calcium 7.8 L Total Bilirubin 15.3 H AST 362 H ALT 174 H Alkaline Phosphatase 1208 H Total Protein 4.1 L D Albumin 1.2 L Peritoneal Fld Comment Culture Results: Microbiology 02/19/18 19:55 Aerobic Blood Culture - Preliminary Blood - Peripheral No growth in 2 days Anaerobic Blood Culture - Preliminary No growth in 2 days 02/19/18 20:00 Aerobic Blood Culture - Preliminary Blood - Peripheral No growth in 2 days Anaerobic Blood Culture - Preliminary No growth in 2 days Medications: Active Medications Generic Name Dose Route Start Last Admin Trade Name Freq PRN Reason Stop Dose Admin Alprazolam 0.25 mg 02/21/18 11:13 02/21/18 23:22 Xanax PO 0.25 mg Q6H PRN Administration ANXIETY Apixaban 2.5 mg 02/21/18 09:00 02/21/18 21:50 Eliquis PO Not Given BID [facility] Diphenhydramine HCl 25 mg 02/20/18 20:57 02/22/18 01:46 Benadryl PO 25 mg Q4H PRN Administration ITCHING Hydromorphone HCl 0.5 mg 02/21/18 11:12 02/22/18 01:45 Dilaudid Pf Inj IV.PUSH 0.5 mg Q3H PRN Administration pain 6-10 Hyoscyamine 0.25 mg 02/21/18 22:30 02/22/18 06:32 Levsin Inj IV.PUSH Not Given Q4H [facility] Sodium Chloride 1,000 mls @ 50 mls/hr 02/19/18 18:00 02/22/18 00:38 Ns Inj IV.CONT 50 mls/hr .Q20H [facility] Infusion Azithromycin 500 mg/ Sodium 250 mls @ 250 mls/hr 02/20/18 22:00 02/22/18 02: 00 Chloride IV.SIG Infused Q24H [facility] Infusion Aztreonam 2 gm/ Sodium 100 mls @ 200 mls/hr 02/19/18 23:00 02/22/18 06:30 Chloride IV.SIG 100 mls/hr Q8H [facility] Administration Morphine Sulfate 30 mg 02/20/18 09:00 02/21/18 23:53 Oramorph Sr PO 30 mg Q12HR [facility] Administration Senna/Docusate Sodium 1 tab 02/20/18 09:00 02/21/18 22:12 Marcela-Colace PO Not Given BID NELLIE Sodium Chloride 2 ml 02/20/18 09:00 02/21/18 21:51 Ns Flush IV.FLUSH Not Given BID NELL[facility] Objective Remarks: GENERAL: Cachectic, somnolent. SKIN: Warm and dry. Jaundice. HEAD: Normocephalic. EYES: Scleral icterus. No injection or drainage. CARDIOVASCULAR: Regular rate and rhythm without murmurs. RESPIRATORY: Breath sounds equal bilaterally. No accessory muscle use. GASTROINTESTINAL: Abdomen slightly distended EXTREMITIES: + edema. Assessment/Plan (1) Ascites Code(s): R18.8 - Other ascites Status: Acute (2) Pancreatic cancer Code(s): C25.9 - Malignant neoplasm of pancreas, unspecified Status: Acute (3) History of DVT (deep vein thrombosis) Code(s): Z86.718 - Personal history of other venous thrombosis and embolism Status: Acute (4) Pneumonia Code(s): J18.9 - Pneumonia, unspecified organism Status: Acute (5) Acute hyponatremia Code(s): E87.1 - Hypo-osmolality and hyponatremia Status: Acute (6) Acute dehydration Code(s): E86.0 - Dehydration Status: Acute (7) Metastasis from pancreatic cancer Code(s): C79.9 - Secondary malignant neoplasm of unspecified site; C25.9 - Malignant neoplasm of pancreas, unspecified Status: Acute (8) Pain Code(s): R52 - Pain, unspecified Status: Acute - Plan 1. Metastatic pancreatic cancer. She presented earlier this year with multiple liver metastases and lymphadenopathy in the donny hepatis. She also has a mass in the pancreatic neck. CA 19-9 was more than 200,000. Biopsy of the liver mass showed poorly differentiated adenocarcinoma with focal mucinous feature consistent with pancreatic carcinoma. She started gemcitabine and Abraxane in September. She had a good response. Tumor marker trended down to 44,000. A CT scan in December showed the liver mass had decreased in size and the pancreatic mass and adenopathy had resolved. Unfortunately, after her fifth cycle of chemotherapy, she began to have abdominal discomfort again. Tumor marker trended back up to 82,000. She went to [facility], but was told there was no clinical trial available. Her disease; however, progressed rapidly and the last 2 weeks she developed recurrent ascites and increased abdominal pain. She went to the emergency room 02/12/2018 and had 3 liters of ascitic fluid removed. She went back to the emergency room again this past Sunday with abdominal pain and was subsequently discharged home. She came to the emergency room and a repeat CT scan without contrast showed progression of liver metastasis. There is also a mass noted in the pancreatic head. Her disease has progressed rapidly. Her performance status has declined. Her performance status is very poor and her prognosis is very poor. 02/21/18 patient had paracentesis removal of 3.6 L of fluid February 20. Her abdominal pain has improved. She however is still very weak. 02/22/18 patient is somnolent. She has decreased urine output. She has developed acute renal failure. This may be hepatorenal syndrome. Her overall prognosis is very poor. Family wants to take her home with hospice. They have question whether to Place Pleurx catheter to drain the ascites. We discussed the pros and cons of placing the catheter. After some discussion, family decided not to place a catheter at this time and to just continue Comfort care. They do not want to put her through any more procedure since she likely is going to pass away within a few days.. 2. Recurrent ascites due to metastatic cancer. CT scan showed increased omental caking again. 3. Abdominal pain due to metastatic cancer. She is currently on Dilaudid and long-acting morphine. She was given a fentanyl patch 2 days ago in the emergency room, but that has been discontinued. 02/21/18 started on long-acting morphine. Her pain is better controlled. 4. Elevated liver enzymes due to liver metastasis. 5. History of pulmonary embolism. She has been on Eliquis, 6. Acute renal failure. This may be hepatorenal syndrome. PLAN: 1. Continue comfort care. 2. Discharge home with hospice if stable for transfer. 3. Discussed with family. (1) Ascites Qualifiers: Ascites type: malignant Qualified Code(s): R18.0 - Malignant ascites (2) Pancreatic cancer Qualifiers: Pancreatic malignancy location: unspecified Qualified Code(s): C25.9 - Malignant neoplasm of pancreas, unspecified (4) Pneumonia Qualifiers: Pneumonia type: due to unspecified organism Laterality: bilateral Lung location: lower lobe of lung Qualified Code(s): J18.1 - Lobar pneumonia, unspecified organism
[2018-02-22 09:33] LABS: Lymphocytes 1 % (9-44); Monocytes 5 % (0-8); Platelet Morphology Clumped (Normal); Target Cells 1+
[2018-02-22] MEDS: Morphine Sulfate 30 MG SR Tablet PO SCH (10:53)
[2018-02-22] MEDS: Senna/Docusate Sodium 8.6/50 MG Tablet PO SCH (10:53)
--- NOTE | 2018-02-22 12:11 | P.PNIM ---
Subjective Interval history: 72-year-old female with a past medical history significant for metastatic pancreatic cancer presents to the emergency department for evaluation of abdominal pain, nausea and vomiting. The patient was seen by her oncologist, Dr. Olivera, who recommended further evaluation in the emergency department. She just finished her last cycle of chemotherapy approximately 1 month ago. She states she has had increasing weakness and abdominal pain since that time. She states that the pain has been worsening for the past several days. She was seen in the emergency department 2 days ago and given a fentanyl patch. She states that her symptoms persisted despite this treatment. Patient was recently admitted on 02/11/18 for paracentesis secondary to large volume ascites. The patient endorses shortness of breath and a nonproductive cough. She continues to complain of abdominal pain despite IV pain medication. She denies any chest pain. No lateralizing signs/symptoms. Positive fatigue/weakness. No fever/chills. 7 PATIENT AND FAMILY HAVE DW WITH PALLIATIVE CARE IS NOW A DNR WILL CONSULT HOSPICE HOPEFULLY HOME WITH HOSPICE TOMORROW WILL TRY TO MAKE PATIENT COMFORTABLE HERE WE CAN DW RN AND PT AND CM AND FAMILY 02-22 PATIENT LOOKS VERY LETHARGIC FAMILY HAS SIGNED UP WITH HOSPICE WILL TRANSFER TO THE INPT HOSPICE UNIT TODAY MAKE COMFORTABLE POSSIBLE DC TO INPT HOSPICE TODAY Physical Exam Vital signs: Vital Signs 02/21/18 16:00 02/21/18 20:00 02/22/18 00:00 Temperature 97.5 F L 98 F 98 F Pulse Rate 99 H 103 H Respiratory Rate 20 12 12 Blood Pressure 135/74 102/63 104/56 L Pulse Oximetry 97 95 02/22/18 04:00 02/22/18 08:00 02/22/18 10:20 Temperature 97.9 F 97.2 F L Pulse Rate 120 H 110 H Respiratory Rate 8 L 6 L Blood Pressure 120/42 L 104/64 Pulse Oximetry 100 Intake & Output 02/21/18 02/22/18 02/22/18 18:59 06:59 18:59 Intake Total 2460 / 2460 590 / 590 100 / 100 Output Total 200 / 200 Balance 2260 / 2260 590 / 590 100 / 100 Intake: IV 2100 / 2100 350 / 350 100 / 100 NS Inj 1,000 ML @ 50 mls/hr IV. 1999 CONT .Q20H [facility] Rx#:[id number] Azithromycin Inj 500 MG In NS 250 / 250 Inj 250 ML @ 250 mls/hr IV.SIG Q24H [facility] Rx#:[id number] Azactam Inj 2 GM In NS Inj 100 100 / 100 100 / 100 100 / 100 ML @ 200 mls/hr IV.SIG Q8H [facility] Rx#:[id number] Oral 360 / 360 240 / 240 Output: Urine 200 / 200 Other: Date of Last Bowel Movement 02/20/18 02/20/18 Narrative: GENERAL: VERY JAUNDICED - VERY THIN FEMALE- LOOKS SOMEWHAT COMFORTABLE--VERY LETHARGIC SKIN: Warm and dry. VERY JAUNDICED HEAD: Atraumatic. Normocephalic. EYES: Pupils equal and round. POSITIVE scleral icterus. No injection or drainage. ENT: No nasal bleeding or discharge. Mucous membranes pink and moist. TONGUE IS YELLOWED JAUNDICE TOO NECK: Trachea midline. No JVD. CARDIOVASCULAR: Regular rate and rhythm. S1, S2 NO S3 OR S4 RESPIRATORY: No accessory muscle use. Clear to auscultation. Breath sounds equal bilaterally. GASTROINTESTINAL: Abdomen soft, non-tender, nondistended. Hepatic and splenic margins not palpable. MUSCULOSKELETAL: Extremities without clubbing, cyanosis, or edema. No obvious deformities. NEUROLOGICAL: NOT Awake and alert. No obvious cranial nerve deficits. Motor grossly within normal limits. NO speech. PSYCHIATRIC: INAppropriate mood and affect; insight and judgment ABnormal. VERY LETHARGIC NOT INTERACTIVE AT ALL Results - Labs CBC & Chem 7: 02/22/18 04:30 02/22/18 04:30 Laboratory Results - last 24 hr 02/20/18 02/22/18 02/22/18 09:56 04:30 04:30 WBC 35.1 H RBC 3.13 L Hgb 8.8 L Hct 28.0 L MCV 89.6 MCH 28.2 MCHC 31.5 L RDW 18.1 H Plt Count 483 H MPV 7.8 Prelim Diff (Auto) Manual diff required WBC Differential Manual diff final Seg Neuts % (Manual) 87 H Band Neuts % (Manual) 7 H Lymphocytes % (Manual) 1 L Monocytes % (Manual) 5 Abs Neuts (Manual) 33.0 H Differential Comment . Platelet Estimate High H Platelet Morphology Clumped H Target Cells 1+ H Sodium 126 L Potassium 5.3 H Chloride 93 L Carbon Dioxide 19.8 L Anion Gap 13 BUN 67 H Creatinine 1.77 H Estimated GFR 28 L Random Glucose 90 Calcium 7.8 L Total Bilirubin 15.3 H AST 362 H ALT 174 H Alkaline Phosphatase 1208 H Total Protein 4.1 L D Albumin 1.2 L Peritoneal Fld Comment Microbiology 02/19/18 19:55 Blood - Peripheral Aerobic Blood Culture - Preliminary No growth in 3 days 02/19/18 19:55 Blood - Peripheral Anaerobic Blood Culture - Preliminary No growth in 3 days 02/19/18 20:00 Blood - Peripheral Aerobic Blood Culture - Preliminary No growth in 3 days 02/19/18 20:00 Blood - Peripheral Anaerobic Blood Culture - Preliminary No growth in 3 days - Imaging ITS Impressions Abdomen/Pelvis CT 02/19/18 17:50 CONCLUSION: 1. Vague pancreatic head mass and widespread metastatic lesions of the liver and accounting for differences between this study and the prior CT with contrast , I believe worse. 2. Moderate ascites, worse. Omental caking about the same. 3. Small bilateral effusions and left side predominant consolidation now seen of the visualized lung bases. Paracentesis Ultrasound 02/20/18 00:00 CONCLUSION: Uncomplicated ultrasound-guided paracentesis. - Procedures PARACENTESIS 02-20 Assessment and Plan - Plan 1. Metastatic pancreatic cancer/ascites/intractable abdominal pain Increase frequency of IV Dilaudid for improved pain relief Patient with worsening abdominal ascites Interventional radiology consulted for diagnostic/therapeutic paracentesis ( with leukocytosis and abdominal pain concern for SBP -aztreonam as patient with allergies to cephalosporins) HAD PARACENTESIS 02-20 Oncology consulted, appreciate assistance 2. Pneumonia Patient with leukocytosis of 39 CT of the abdomen/pelvis significant for left side predominant consolidation Aztreonam and azithromycin 3. History of DVT Patient on Eliquis for anticoagulation Holding for paracentesis 4. Hyponatremia Sodium 118 Fluid restriction Repeat BMP FAMILY HAS SIGNED UP WITH HOSPICE TRANSFER TO CARE CENTER IS A DNR POOR PROGNOSIS DON'T THINK SHE WILL MAKE IT THROUGH THE DAY Code Status: DNR Discussed Condition With: CM AND RN AND FAMILY AND HOSPICE Discharge Planning: CONSULT HOSPICE--TO HOSPICE CARE CENTER TODAY
--- NOTE | 2018-02-22 12:17 | P.DS ---
Date of admission: 02/19/18 19:54 Primary care physician: Roro Tate Attending physician on discharge: Jimy Galvin Anticipated date of discharge: 02/22/18 Brief History from admission: 72-year-old female with a past medical history significant for metastatic pancreatic cancer presents to the emergency department for evaluation of abdominal pain, nausea and vomiting. The patient was seen by her oncologist, Dr. Olivera, who recommended further evaluation in the emergency department. She just finished her last cycle of chemotherapy approximately 1 month ago. She states she has had increasing weakness and abdominal pain since that time. She states that the pain has been worsening for the past several days. She was seen in the emergency department 2 days ago and given a fentanyl patch. She states that her symptoms persisted despite this treatment. Patient was recently admitted on 02/11/18 for paracentesis secondary to large volume ascites. The patient endorses shortness of breath and a nonproductive cough. She continues to complain of abdominal pain despite IV pain medication. She denies any chest pain. No lateralizing signs/symptoms. Positive fatigue/weakness. No fever/chills. DS: Diagnosis - Discharge Diagnosis (1) Ascites Status: Chronic (2) Metastasis from pancreatic cancer Status: Acute (3) Pain Status: Acute (4) Pneumonia Status: Acute (5) History of DVT (deep vein thrombosis) Status: Chronic (6) Pancreatic cancer Status: Chronic DS: Summary Hospital Course: 72-year-old female with a past medical history significant for metastatic pancreatic cancer presents to the emergency department for evaluation of abdominal pain, nausea and vomiting. The patient was seen by her oncologist, Dr. Olivera, who recommended further evaluation in the emergency department. She just finished her last cycle of chemotherapy approximately 1 month ago. She states she has had increasing weakness and abdominal pain since that time. She states that the pain has been worsening for the past several days. She was seen in the emergency department 2 days ago and given a fentanyl patch. She states that her symptoms persisted despite this treatment. Patient was recently admitted on 02/11/18 for paracentesis secondary to large volume ascites. The patient endorses shortness of breath and a nonproductive cough. She continues to complain of abdominal pain despite IV pain medication. She denies any chest pain. No lateralizing signs/symptoms. Positive fatigue/weakness. No fever/chills. 7-12 PATIENT AND FAMILY HAVE DW WITH PALLIATIVE CARE IS NOW A DNR WILL CONSULT HOSPICE HOPEFULLY HOME WITH HOSPICE TOMORROW WILL TRY TO MAKE PATIENT COMFORTABLE HERE WE CAN DW RN AND PT AND CM AND FAMILY 02-22 PATIENT LOOKS VERY LETHARGIC FAMILY HAS SIGNED UP WITH HOSPICE WILL TRANSFER TO THE INPT HOSPICE UNIT TODAY MAKE COMFORTABLE POSSIBLE DC TO INPT HOSPICE TODAY METASTATIC PANCREATIC CANCER WITH METS TO THE LIVER - Time Spent with Patient Total time spent providing and/or coordinating discharge services: 40 Greater than 30 minutes - Quality: VTE Deep Vein Thrombosis/Pulmonary Embolism Present on Admission: Yes Exam Vital signs: Vital Signs 02/21/18 16:00 02/21/18 20:00 02/22/18 00:00 Temperature 97.5 F L 98 F 98 F Pulse Rate 99 H 103 H Respiratory Rate 20 12 12 Blood Pressure 135/74 102/63 104/56 L Pulse Oximetry 97 95 02/22/18 04:00 02/22/18 08:00 02/22/18 10:20 Temperature 97.9 F 97.2 F L Pulse Rate 120 H 110 H Respiratory Rate 8 L 6 L Blood Pressure 120/42 L 104/64 Pulse Oximetry 100 02/22/18 12:00 Temperature 97.5 F L Pulse Rate 110 H Respiratory Rate 6 L Blood Pressure 105/67 Pulse Oximetry 97 Intake & Output 02/21/18 02/22/18 02/22/18 18:59 06:59 18:59 Intake Total 2460 / 2460 590 / 590 100 / 100 Output Total 200 / 200 Balance 2260 / 2260 590 / 590 100 / 100 Intake: IV 2100 / 2100 350 / 350 100 / 100 NS Inj 1,000 ML @ 50 mls/hr IV. 1999 / 1999 CONT .Q20H NELLIE Rx#:[id number] Azithromycin Inj 500 MG In NS 250 / 250 Inj 250 ML @ 250 mls/hr IV.SIG Q24H NELLIE Rx#:[id number] Azactam Inj 2 GM In NS Inj 100 100 / 100 100 / 100 100 / 100 ML @ 200 mls/hr IV.SIG Q8H NELLIE Rx#:[id number] Oral 360 / 360 240 / 240 Output: Urine 200 / 200 Other: Date of Last Bowel Movement 02/20/18 02/20/18 Narrative: GENERAL: VERY JAUNDICED - VERY THIN FEMALE- LOOKS SOMEWHAT COMFORTABLE--VERY LETHARGIC SKIN: Warm and dry. VERY JAUNDICED HEAD: Atraumatic. Normocephalic. EYES: Pupils equal and round. POSITIVE scleral icterus. No injection or drainage. ENT: No nasal bleeding or discharge. Mucous membranes pink and moist. TONGUE IS YELLOWED JAUNDICE TOO NECK: Trachea midline. No JVD. CARDIOVASCULAR: Regular rate and rhythm. S1, S2 NO S3 OR S4 RESPIRATORY: No accessory muscle use. Clear to auscultation. Breath sounds equal bilaterally. GASTROINTESTINAL: Abdomen soft, non-tender, nondistended. Hepatic and splenic margins not palpable. MUSCULOSKELETAL: Extremities without clubbing, cyanosis, or edema. No obvious deformities. NEUROLOGICAL: NOT Awake and alert. No obvious cranial nerve deficits. Motor grossly within normal limits. NO speech. PSYCHIATRIC: INAppropriate mood and affect; insight and judgment ABnormal. VERY LETHARGIC NOT INTERACTIVE AT ALL Results Procedures completed during hospitalization: PARACENTESIS 7-11 Completed studies during hospitalization: Laboratory Results WBC 35.1 th/mm3 (4.0-11.0) H 02/22/18 04:30 RBC 3.13 mil/mm3 (4.00-5.30) L 02/22/18 04:30 Hgb 8.8 gm/dL (11.6-15.3) L 02/22/18 04:30 Hct 28.0 % (35.0-46.0) L 02/22/18 04:30 MCV 89.6 fL (80.0-100.0) 02/22/18 04:30 MCH 28.2 pg (27.0-34.0) 02/22/18 04:30 MCHC 31.5 % (32.0-36.0) L 02/22/18 04:30 RDW 18.1 % (11.6-17.2) H 02/22/18 04:30 Plt Count 483 th/mm3 (150-450) H 02/22/18 04:30 MPV 7.8 fL (7.0-11.0) 02/22/18 04:30 Prelim Diff (Auto) Manual diff required 02/22/18 04:30 Neut % (Auto) 86.6 % (16.0-70.0) H 02/21/18 05:30 Lymph % (Auto) 5.0 % (9.0-44.0) L 02/21/18 05:30 [place]y % (Auto) 8.1 % (0.0-8.0) H 02/21/18 05:30 Eos % (Auto) 0.1 % (0.0-4.0) 02/21/18 05:30 Baso % (Auto) 0.2 % (0.0-2.0) 02/21/18 05:30 Neut # (Auto) 32.0 th/mm3 (1.8-7.7) H 02/21/18 05:30 Lymph # (Auto) 1.8 th/mm3 (1.0-4.8) 02/21/18 05:30 Emery # (Auto) 3.0 th/mm3 (0.0-0.9) H 02/21/18 05:30 Eos # (Auto) 0.0 th/mm3 (0.0-0.4) 02/21/18 05:30 Baso # (Auto) 0.1 th/mm3 (0.0-0.2) 02/21/18 05:30 WBC Differential Manual diff final 02/22/18 04:30 Seg Neuts % (Manual) 87 % (16-70) H 02/22/18 04:30 Band Neuts % (Manual) 7 % (0-6) H 02/22/18 04:30 Lymphocytes % (Manual) 1 % (9-44) L 02/22/18 04:30 Monocytes % (Manual) 5 % (0-8) 02/22/18 04:30 Myelocytes % (Man) 1 % (0-0) H 02/19/18 18:00 Abs Neuts (Manual) 33.0 th/mm3 (1.8-7.7) H 02/22/18 04:30 Differential Comment . 02/22/18 04:30 Toxic Granulation 1+ (None) H 02/21/18 05:30 Platelet Estimate High (Normal) H 02/22/18 04:30 Platelet Morphology Clumped (Normal) H 02/22/18 04:30 Polychromasia 2.9 % (0.0-1.9) H 02/21/18 05:30 Target Cells 1+ (None) H 02/22/18 04:30 PT 16.5 sec (9.8-11.6) H 02/19/18 18:00 INR 1.6 Ratio 07/10/18 18:00 APTT 31.8 sec (24.3-30.1) H 02/19/18 18:00 Sodium 126 meq/L (136-145) L 02/22/18 04:30 Potassium 5.3 meq/L (3.5-5.1) H 02/22/18 04:30 Chloride 93 meq/L (98-107) L 02/22/18 04:30 Carbon Dioxide 19.8 meq/L (21.0-32.0) L 02/22/18 04:30 Anion Gap 13 meq/L (5-15) 02/22/18 04:30 BUN 67 mg/dL (7-18) H 02/22/18 04:30 Creatinine 1.77 mg/dL (0.50-1.00) H 02/22/18 04:30 Estimated GFR 28 mL/min (>89) L 02/22/18 04:30 Random Glucose 90 mg/dL (74-106) 02/22/18 04:30 Calcium 7.8 mg/dL (8.5-10.1) L 02/22/18 04:30 Total Bilirubin 15.3 mg/dL (0.2-1.0) H 02/22/18 04:30 AST 362 U/L (15-37) H 02/22/18 04:30 ALT 174 U/L (10-53) H 02/22/18 04:30 Alkaline Phosphatase 1208 U/L (45-117) H 02/22/18 04:30 Total Protein 4.1 g/dL (6.4-8.2) L D 02/22/18 04:30 Albumin 1.2 g/dL (3.4-5.0) L 02/22/18 04:30 Lipase 195 U/L (73-393) 02/19/18 18:00 Urine Color Bobbi (Yellw/Straw) 02/19/18 21:00 Urine Clarity Cloudy (Clear) H 02/19/18 21:00 Urine pH 5.0 (5.0-8.5) 02/19/18 21:00 Ur Specific [place] 1.018 (1.002-1.035) 02/19/18 21:00 Urine Protein Negative mg/dL (Neg-Trace) 02/19/18 21:00 Urine Glucose (UA) 50 mg/dL (Negative) 02/19/18 21:00 Urine Ketones Negative mg/dL (Negative) 02/19/18 21:00 Urine Occult Blood Negative (Negative) 02/19/18 21:00 Urine Nitrate Negative (Negative) 02/19/18 21:00 Urine Bilirubin Moderate (Negative) H 02/19/18 21:00 Urine Ictotest Positive (Negative) H 02/19/18 21:00 Urine Urobilinogen 4 or greater mg/dL (Less than 2) 02/19/18 21:00 Ur Leukocyte Esterase Negative (Negative) 02/19/18 21:00 Urine RBC 1 /hpf (0-3) 02/19/18 21:00 Urine WBC 7 /hpf (0-5) H 02/19/18 21:00 Ur Squamous Epith Cells 6 /hpf (0-5) 02/19/18 21:00 Urine Bacteria Occasional /hpf (None) H 02/19/18 21:00 Hyaline Casts 3 /lpf (0-3) 02/19/18 21:00 WBC Casts 15 /lpf (None) 02/19/18 21:00 Urine Mucus Moderate /lpf (Occasional) H 02/19/18 21:00 Micro UA Comment Culture not ind 02/19/18 21:00 Urine Culture Comments Culture not ind 02/19/18 21:00 Peritoneal RBC 1896 /mm3 (0-0) H 02/20/18 09:56 Periton Nuc Cells 918 /mm3 (0-10) H 02/20/18 09:56 Periton Neutrophils 19 % 02/20/18 09:56 Periton Lymphocytes 16 % 02/20/18 09:56 Peritoneal Monocytes 3 % 02/20/18 09:56 Periton Mesothelial 3 % 02/20/18 09:56 Periton Histiocytes 59 % 02/20/18 09:56 Peritoneal Fld Comment 02/20/18 09:56 Peritoneal Tot Protein 2.2 gm/dL 02/20/18 09:56 Peritoneal Albumin 1.1 g/dL 02/20/18 09:56 Peritoneal LDH 670 U/L 02/20/18 09:56 Peritoneal Glucose 62 mg/dL 02/20/18 09:56 Peritoneal Amylase 158 U/L 02/20/18 09:56 Impressions Abdomen/Pelvis CT 02/19/18 17:50 CONCLUSION: 1. Vague pancreatic head mass and widespread metastatic lesions of the liver and accounting for differences between this study and the prior CT with contrast , I believe worse. 2. Moderate ascites, worse. Omental caking about the same. 3. Small bilateral effusions and left side predominant consolidation now seen of the visualized lung bases. Paracentesis Ultrasound 02/20/18 00:00 CONCLUSION: Uncomplicated ultrasound-guided paracentesis. Labs on day of discharge: Labs from last 24 hours 02/22/18 02/22/18 02/20/18 04:30 04:30 09:56 WBC 35.1 H RBC 3.13 L Hgb 8.8 L Hct 28.0 L MCV 89.6 MCH 28.2 MCHC 31.5 L RDW 18.1 H Plt Count 483 H MPV 7.8 Prelim Diff (Auto) Manual diff required WBC Differential Manual diff final Seg Neuts % (Manual) 87 H Band Neuts % (Manual) 7 H Lymphocytes % (Manual) 1 L Monocytes % (Manual) 5 Abs Neuts (Manual) 33.0 H Differential Comment . Platelet Estimate High H Platelet Morphology Clumped H Target Cells 1+ H Sodium 126 L Potassium 5.3 H Chloride 93 L Carbon Dioxide 19.8 L Anion Gap 13 BUN 67 H Creatinine 1.77 H Estimated GFR 28 L Random Glucose 90 Calcium 7.8 L Total Bilirubin 15.3 H AST 362 H ALT 174 H Alkaline Phosphatase 1208 H Total Protein 4.1 L D Albumin 1.2 L Peritoneal Fld Comment Preliminary micro results at discharge 02/19/18 19:55 Aerobic Blood Culture - Preliminary Blood - Peripheral No growth in 3 days Anaerobic Blood Culture - Preliminary No growth in 3 days 02/19/18 20:00 Aerobic Blood Culture - Preliminary Blood - Peripheral No growth in 3 days Anaerobic Blood Culture - Preliminary No growth in 3 days - Impressions ITS Impressions Abdomen/Pelvis CT 02/19/18 17:50 CONCLUSION: 1. Vague pancreatic head mass and widespread metastatic lesions of the liver and accounting for differences between this study and the prior CT with contrast , I believe worse. 2. Moderate ascites, worse. Omental caking about the same. 3. Small bilateral effusions and left side predominant consolidation now seen of the visualized lung bases. Paracentesis Ultrasound 02/20/18 00:00 CONCLUSION: Uncomplicated ultrasound-guided paracentesis. Discharge Plan - Discharge Disposition Patient Disposition: [facility] Facility - Discharge Condition Condition: Critical - Discharge Order Discharge Orders: Discharge Order (Routine); Ordered 02/22/18 Ordered By: Jimy Galvin - Discharge Details Anticipated Discharge Date: 02/22/18 Discharge Comment: DC TO INPT HOSPICE TODAY - Physicians Team Primary Care Provider: Roro Tate Attending Provider: Jimy Galivn Other Providers: Graham Mcpherson MD ; Urbano Olivera MD ; Drew Faith MD ; Yoly Frederick
== END 2018-02-22 13:31 | disposition hospice, inpatient (51) ==
LOC: NEPC 16:25 → NEDH 19:54 → HCIN 22:17
PROVIDERS: ADMIT Hospitalist; ATTEND Hospitalist
DX: J18.1 Lobar pneumonia, unspecified organism; Z92.21 Personal history of antineoplastic chemotherapy; R18.0 Malignant ascites; G89.3 Neoplasm related pain (acute) (chronic); Z66 Do not resuscitate; R59.1 Generalized enlarged lymph nodes; Z80.8 Family history of malignant neoplasm of other organs or systems; J30.81 Allergic rhinitis due to animal (cat) (dog) hair and dander; C25.7 Malignant neoplasm of other parts of pancreas; N17.9 Acute kidney failure, unspecified; Z79.01 Long term (current) use of anticoagulants; J90 Pleural effusion, not elsewhere classified; Z91.040 Latex allergy status; C78.7 Secondary malignant neoplasm of liver and intrahepatic bile duct; Z86.718 Personal history of other venous thrombosis and embolism; I10 Essential (primary) hypertension; K59.00 Constipation, unspecified; Z80.42 Family history of malignant neoplasm of prostate; Z88.7 Allergy status to serum and vaccine; Z86.711 Personal history of pulmonary embolism; E87.1 Hypo-osmolality and hyponatremia; E86.0 Dehydration; M19.90 Unspecified osteoarthritis, unspecified site; Z88.3 Allergy status to other anti-infective agents; Z51.5 Encounter for palliative care; Z88.1 Allergy status to other antibiotic agents